=== PATIENT | male | born 1960 | race Caucasian/White ===

== ENCOUNTER 2024-12-05 12:11 | Outpatient (OUT) | payer MEDICAID, SELFPAY ==
--- NOTE | 2024-12-05 12:22 | XR_ITS ---
The [address] [address] Patient Name: RYLEE GOVEA MRN: [id number] date: 1960 Sex: M Assigned Patient Location: [facility] Current Patient Location: [facility] Accession/Order Number: [id number] Exam Date: 12/05/2024 13:03 Report Date: 12/05/2024 13:03 At the request of: RADHA BRUNO Procedure: XR elbow RT min 3V RIGHT ELBOW - ray views CLINICAL HISTORY: Chronic right elbow pain. COMPARISON: None FINDINGS: Posterior soft tissue swelling. No elbow joint effusion. Elbow joint demonstrates degenerative change without acute bony process. XR/XR elbow RT min 3V IMPRESSION: MILD POSTERIOR SOFT TISSUE SWELLING WITH DEGENERATIVE CHANGES INVOLVING THE RIGHT ELBOW. NO ACUTE BONY PROCESS. Impression dictated by: Manoj Blas Jr., D.O. 12/05/2024 1:03 PM Dictation Location: [place] [address] Electronically authenticated by: [id number] Y Date: 12/05/2024 13:03
== END 2024-12-05 12:12 | disposition home or self-care (01) ==
PROVIDERS: Family Provider Family Medicine; PCP Nurse Practitioner Family; Visit Provider Nurse Practitioner Family
DX: M25.521 Pain in right elbow (principal); M19.021 Primary osteoarthritis, right elbow
CPT/HCPCS: 73080

== ENCOUNTER 2025-02-27 11:47 | Outpatient (OUT) | payer MEDICAID, SELFPAY ==
--- OUTSIDE RECORDS SUMMARY | 2025-02-27 07:39 | XMS_ITS | Continuity of Care Document ---
Author Organization [facility] Address [address] [place] [address] Phone Care Team Providers Care [employer] Information [employer] Supervisor Name Role Phone Emmanuelle Radha DANIELS Primary Care Provider Radha Bruno APRN Attending Provider [phone] Brayan Pennington DO Attending Provider [phone] Care Teams Patient Care Team Team Status: Active Member Role/Relationship Status Dates Radha Bruno APRN [employer]-C Primary Care Provider Active Visit Care Team Team Status: Inactive Member Role/Relationship Status Dates Radha Bruno APRN [employer]C Primary Care Provider Active Start: December 05, 2024 End: December 05, 2024Radha Bruno APRN [employer]-CAttending ProviderActive Start: December 05, 2024 End: December 05, 2024 Visit Care Team Team Status: Inactive Member Role/Relationship Status Dates Radha Bruno APRN [employer]C Primary Care Provider Active Start: December 12, 2024 End: December 12, 2024Radha Bruno APRN [employer] CAR[employer]ER-CAttenhanna ProviderActive Start: December 12, 2024 End: December 12, 2024 Patient Care Team Team Status: Inactive Member Role/Relationship Status Dates Radha Bruno APRN [employer]C Primary Care Provider Active Start: February End: February 27, 2025Justcase Pennington DOAttending ProviderActiveStart: February 27, 2025 End: February 27, 2025 Chief Complaint and Reason for Visit Chief Complaint Admit Date elbow concerns December 05, 2024 11: 19am 3 mo f/u December 12, 2024 2: 01pm [facility] CONSULT RADHA BRUNO RT ELBOW PAIN WX February 27, 2025 10:44am Reason for Visit Admit Date Right elbow pain December 05, 2024 11: 19am Anxiety December 12, 2024 2: 01pm Arthritis of right elbow December 12 2:01pm CVA (cerebral vascular accident) December 12, 2024 2:01pm Dysphagia December 12, 2024 2: 01pm GERD (gastroesophageal reflux disease) A ugust 2024 2:01pm History of aortic valve replacement Augu st 2024 2:01pm History of coronary artery bypass graft x 1 December 12, 2024 2:01pm Hyperlipidemia December 12, 2024 2: 01pm Hypertension December 12, 2024 2: 01pm Marijuana abuse December 12, 2024 2: 01pm Nicotine dependence December 12, 2024 2: 01pm Pre-op evaluation December 12, 2024 2: 01pm Right elbow pain December 12, 2024 2: 01pm Seasonal allergies December 12, 2024 2: 01pm Type 2 diabetes mellitus December 12 2:01pm 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 December 12, 2024 2:01pm Arthritis of right elbow February 27, 2 025 10:44am Right elbow pain February 27, 2025 1 0:44am Reason for Referral Type Reason(s) Provider Provider Contact Information [facility] Address Start Date Right elbow pain Arthritis of right elbow M25.521 - Pain in right elbow,M19.021 - Primary osteoarthritis, right elbow M25.521 - Pain in right elbow,M19.021 - Primary osteoarthritis, right elbowLeslye Huff Phone: [phone] [facility] [id number] 2024 Allergies, Adverse Reactions, Alerts Allergen Type Severity Reaction Last Updated Verified Status cephalexin Allergy Unknown Unknown Reaction February 27, 2025 11:10am Yes Active doxycycline Adverse Reaction Unknown Diarrhea February 27, 2025 11:10am Yes Active Social History Smoking Status Status Start Date End Date Date of Observa tion Smokes tobacco daily (finding) December 12, 2024 2:24pm Observation Status Observation Response Date of Response Legal Sex [facility] (finding) [facility] Family History Relationship Condition Age at Onset Recorded Date/T carlos mother Malignant neoplasm of ovary Unknown fatherDeceasedUnknownmotherDeceasedUnknown Problems Active Problems Problem Diagnosis/Recorded Date Onset Date Status C omments Nicotine dependence September 11, 2024 5:43pm Unknown Activ e 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May 2024 5:45pmUnknownActiveHistory of coronary artery bypass graft x 1May 2024 8:51amUnknownActiveMarijuana abuseApril 2021 5:44pmUnknownActiveType 2 diabetes mellitusMay 2024 5:45pmUnknownActiveAnxietyJune 2024 1:15pmUnknownActiveDysphagiaApril 2024 9:01amUnknownActiveSeasonal allergiesAugust 2024 2:49pmUnknown ActiveHyperlipidemiaMay 2024 5:43pmUnknownActivePre-op evaluationAugust 2024 3:04pmUnknownActiveChronic back painMay 2024 5:46pmUnknown ActiveRight elbow painAugust 2024 11:43amUnknownActiveEncounter for screening for lung cancerMa2024 5:43pmUnknownActiveHistory of aortic valve replacementMay 2024 5:44pmUnknownActiveGERD (gastroesophageal reflux disease)September 12, 2024 8:56amUnknownActiveHypertensionJuly 2021 1:45pm UnknownActiveCVA (cerebral vascular accident)November 25, 2021 1:44pmUnknownActive Arthritis of right elbowAugust 2024 2:56pmUnknownActiveInactive/Resolved Problems Problem Diagnosis/Recorded Date Onset Date Status C omments Stroke of right basal ganglia August 13, 2021 2:58pm Unknown Resolved Problem List clean-up per request of Phys. EHR Cmte Impaired mobility and activities of daily living August 13, 2021 9:54am Unknown Resolved Problem List clean-up per request of Phys. EHR Cmte Alcohol abuse August 12, 2021 5:43pm Unknown Resolved Problem List clean-up per request of Phys. EHR Cmte Chronic pain August 13, 2021 9:55am Unknown Resolved Problem List clean-up per request of Phys. EHR Cmte Dysphagia August 13, 2021 9:53am Unknown Resolved P roblem List clean-up per request of Phys. EHR Cmte Left-sided neglect August 13, 2021 9:54am Unknown Reso lved Problem List clean-up per request of Phys. EHR Cmte Aortic valve replaced August 12, 2021 5:42pm Unknown R esolved Problem List clean-up per request of Phys. EHR Cmte Anticoagulated on Coumadin August 13, 2021 9:54am Unknown Resolved Problem List clean-up per request of Phys. EHR Cmte Left hemiplegia August 13, 2021 9:56am Unknown Resolve d Problem List clean-up per request of Phys. EHR Cmte Hypertension August 13, 2021 9:54am Unknown Resolved Problem List clean-up per request of Phys. EHR Cmte Smoker August 12, 2021 5:43pm Unknown Resolved P roblem List clean-up per request of Phys. EHR Cmte Medications Medication Status Dose Units Route Directions Qty Days Refills S tart Date Stop Date End Date Reason(s) Instructions Adherence Bupropion Hcl (Wellbutrin Sr) 150 mg tablet sustained-release 12 hr Discontinued 150 MG PO Daily 90 90 1 October 11, 2024 12:00am December 12, 2024 2:33pmAnxiety Anxiety disorder, unspecifiedOndansetron 4 mg tablet,xxcmkjsxsqlqtjBiosds2HQTX Q8H as needed for nausea and agpwdabg13945Yapxsd 2024 12:00amComplies with drug therapyAtorvastatin 40 mg tjmmrqEgfieo37GURDRczcd rqexghm26335Atmobnabo 17th, 2025 1:18pmHyperlipidemia Hyperlipidemia, unspecifiedComplies with drug therapyTizanidine 4 mg tablet Lelwba9HFCYQopzumi41599Ihqmqntal 17th, 2025 1:19pmChronic back pain Dorsalgia, unspecified Other chronic painComplies with drug therapyBupropion Hcl (Wellbutrin Sr) 150 mg tablet sustained-release 12 ldNfqoobmhwoyk628YZJGPcwgx29227Cqflalrlb 2024 8:10amOctober 2024 1:31pmAnxiety Anxiety disorder, unspecifiedBupropion Hcl 150 mg tablet sustained-release 12 hr Active0.ROUTE.TGTFBUZ2971Rmfdsjh 2024 1:31pmAnxiety Anxiety disorder, unspecifiedTAKE 2 TABLETS BY MOUTH DAILYComplies with drug therapyAmlodipine 2.5 mg tabletDiscontinued2.5MGPODailyJuly 2021 12:00am December 12, 2024 2:50pmEscitalopram Oxalate 10 mg sjphbvYdjbercempdp79UEYWDugzg November 25, 2021 12:00amMay 2024 2:43pmEnoxaparin (Lovenox) 100 mg/mL LkxonmgWyjtndfosaxd224PMAYHBNUM38HKpon 2021 12:00amMay 2024 2:43pm Warfarin 7.5 mg RwlhvdFvstznpmkkiy0ZBRDJgl as DirectedApril 2021 12:00am August 16, 2021 10:16am7.5MG takes every Thursday, 5mg PO every other day (////Thu/Thu)Metoprolol Tartrate 100 mg HggcrrKpjfis227WZTGUilgc daily 85460Pqdea 2021 12:00amComplies with drug therapyTizanidine 4 mg Tablet Drhfswmuywkl3QOWKMmxyirf99239Cruoq 2021 12:00amSeptember 2024 1:19pm Lisinopril 20 mg HkfyvwZafxni38AFVNDcblr25276Iidpk 2021 12:00amComplies with drug therapyThiamine Hcl (Vitamin B1) 100 mg TloykiYsrjmrrlgfum850LMQEHkynl 25838Slblm 2021 12:00amJuly 2021 1:42pmWarfarin (Jantoven) 5 mg SiyeglSmkhyy5QLQBBrxdf91Lxepf 2021 12:00amComplies with drug therapy Omeprazole 20 mg Capsule,Delayed Release(Dr/Ec)Qvjgfoetdryf05RMXGIyqoe dvjws5435 0April 2021 12:00amJuly 2021 1:42pmAtorvastatin 40 mg Tablet Zvdyvpkehqml77KSUPZjokg bjjrgun49571Cucyg 2021 12:00amSeptember 2024 1:19pmHydrocodone-Acetaminophen 5-325 mg IuytbkZxmenretxmbt1ATJWJR8B as needed for Ptci25Efpue ugust 2024 2:23pmAspirin (Children's Aspirin) 81 mg Tablet,CzmqzuguTjvujl92MMWLQgckl25778Ejece 2021 12:00amComplies with drug therapyFolic Acid 1 mg HccmgjRinukrjxmibe5VVZWAaott49771Twmow 2021 12:00amJuly 2021 1:42pmBacitracin-Polymyxin B 500-10,000 unit/gram LilbedxaAgzjnriitevf0QXEAHLHYR-XTHEES9A as needed for Dry Eye(S)56270Yrgqe 2021 12:00amAugust 2024 2:22pmFexofenadine 180 mg tabletDiscontinuedMGPO December 05, 2024 12:00amAugust 2024 2:50pmGlimepiride 2 mg tablet DiscontinuedMGAugus2024 12:002024 3:07pmAmoxicillin-Pot Clavulanate 875-125 mg tabletDiscontinuedTABPOA2024 12:00ugust 2024 2:21pmBenzonatate 200 mg uubbbptOczxyjwstnjy221KDXLJjzmf times daily September 07, 2024 12:00amMay 2024 3:41pmBupropion Hcl 150 mg tablet sustained- release 12 dvOvcdzqwoqtpx020ZCZLKkpig dailySeptember 07, 2024 12:00amMa2024 3:24pmClopidogrel 75 mg sevpmwXxynac75PDGRBjvtqJxy 7th, 2025 12:00amComplies with drug therapyDapagliflozin Propanediol 10 mg dwanyeDdqsek59JAXKLlowaIrq 7th, 2025 12:00amComplies with drug therapyMetformin 500 mg obnzmrFybyaipvjzis128UDUX Twice dailySeptember 07, 2024 12:00amA2024 2:50pmNicotine 21 mg/24 hr patch 24 jvboEnlwdsqozcvy5MCECEGHQHZBIYIPSagniAyq 7th, 2025 12:002024 2:23pmPantoprazole 40 mg tablet,delayed release (DR/EC)Hctiup10XTYIAqvprIzu 7th, 2025 12:00amComplies with drug therapyUrea 40 % qihtvGwceijkuzfda4EIREDX TOPICALTwice dailySeptember 07, 2024 12:00amA2024 2:23pmBenzonatate 200 mg gchelpuQjaizy695MOOHCjlxc times yfkqe846357Lpm 7th, 2025 3:41pmDysphagia Dysphagia, unspecifiedUnknownOmadacycline (Nuzyra) 150 mg cunikfMxucip991QZRZ Twice dailyAuunm [facility] hospitalt 2024 12:00amComplies with drug therapyBupropion Hcl (Wellbutrin Sr) 150 mg tablet sustained-release 12 pvFisavsowdvar637LUIQMxpyn73 300Auunm [facility] hospitalt 2024 2:32pmSeptember 2024 8:10amAnxiety Anxiety disorder, unspecifiedFexofenadine 180 mg xouzjnFlhitf155YCWXAjocy20509 December 12, 2024 2:48pmSeasonal allergies Other seasonal allergic rhinitisComplies with drug therapyAmlodipine 2.5 mg tabletActive2.0DSSCEfwbp58781Itjmnx 2024 2:49pmHypertension Essential (primary) hypertensionComplies with drug therapyMetformin 500 mg ycynumPpmiyx4049SBSCWvomv edhvd188756Qzsvzx 2024 2:50pmType 2 diabetes mellitus Type 2 diabetes mellitus without complicationsComplies with drug therapy Vital Signs Vital Reading Result Reference Range Collection Date/Time Height 68 [in_i] December 05, 2024 11:52fpShrgla349.96 kgAugust 2024 11:28amHeart Rate58 /min 60-100August 2024 11:28amRespiratory rate16 /hbg88-08Zyakxd 2024 11:28amOxygen saturation by Pulse jfsaqppo05 %95-100August 2024 11:28amBP Smmhedls490 mm[Hg]100-140Augus2024 11:28amBP Xiyhxjxrl51 mm[Hg]60-100 December 05, 2024 11:28amBMI (Body Mass Index)34.4 kg/v8Dttmlk2024 11:28am Btllvq75 [in_i]December 12, 2024 2:10enXgtzhp377.32 kgAugus2024 2:18pm Body Wxtvdkvqnsh31.8 [degF]97.6-99.0Augus2024 2:18pmHeart Rate72 /min 60-100Au2024 2:18pmOxygen saturation by Pulse aedfcpoh68 %95-100 December 12, 2024 2:18pmBP Qfvxvuzq458 mm[Hg]100-140Augus2024 2:18pmBP Fhhutqplb76 mm[Hg]60-100August 2024 2:18pmBMI (Body Mass Index)34.9 kg/m2 December 12, 2024 2:96ilFlixcr62 [in_i]February 27, 2025 11:01prOpihnz483.32 kg February 27, 2025 11:10amBMI (Body Mass Index)34.9 kg/d2Beuuvwa2024 11:10am Advance Directives Advance Directive Response Recorded Date/ Time Advance Directives No August 12 022 1:03pm Insurance Providers Guarantor Jorge Ojeda Address [address] [place] [id number] Info.Home Phone: Coverage Status Update:2024 Payer Group Member ID Coverage Type Subscriber Relationship to Subscriber Effective Date Expiration Date [facility] Medicaid [id number] Barger , D Id: [id number] [address] [place] [id number] Home Phone: Email: .[employer] Unknown Id: [id number] Barger , D Id: [id number] [address] [place], [place] [address] Home Phone: Email: .comSelf Encounters Encounter Location(s) Arrival/Admit Date Discharge/Departure Date Discharge/Departure Disposition Provider(s) Departed Physician/ Provider Office Visit -[facility] December 05, 2024 11:19am December 05, 2024 11:55am Discharged to home care or self care (routine discharge) Radha Bruno APRN CNP Departed Physician/ Provider Office Visit -[facility] December 12, 2024 2:01pm December 12, 2024 3:02pm Discharged to home care or self care (routine discharge) Radha Bruno APRN CNP Departed Physician/ Provider Office Visit -[facility] [place] February 27, 2025 10:44am February 27, 2025 11:38am Discharged to home care or self care (routine discharge) Brayan Pennington , DO Recent Diagnosis Onset Date Admit Date Right elbow pain Unknown December 05 11:19am Anxiety Unknown December 12 2:01pm Arthritis of right elbow Unknown December 12, 2024 2:01pm CVA (cerebral vascular accident) Unknown December 12, 2024 2:01pm Dysphagia Unknown December 12 2:01pm GERD (gastroesophageal reflux disease) Unknown December 12, 2024 2:01pm History of aortic valve replacement Unknown December 12, 2024 2:01pm History of coronary artery bypass graft x 1 Unkn own December 12, 2024 2:01pm Hyperlipidemia Unknown December 12 2:01pm Hypertension Unknown December 12 2:01pm Marijuana abuse Unknown December 12 2:01pm Nicotine dependence Unknown December 12, 2024 2:01pm Pre-op evaluation Unknown December 12, 2 025 2:01pm Right elbow pain Unknown December 12 2:01pm Seasonal allergies Unknown December 12, 2024 2:01pm Type 2 diabetes mellitus Unknown December 12, 2024 2:01pm 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 Unknown December 12, 2024 2:01pm Arthritis of right elbow Unknown February 27, 2025 10:44am Right elbow pain Unknown October 27th, 2 025 10:44am Assessments Diagnosis Onset Date Resolution Status Admit Date Right elbow pain acuteAugust 2024 11:19amAnxietyacuteAugust 2024 2:01pmArthritis of right elbowacuteAugust 2024 2:01pmCVA (cerebral vascular accident)acute December 12, 2024 2:01pmDysphagiaacuteAugust 2024 2:01pmGERD (gastroesophageal reflux disease)acuteAugust 2024 2:01pmHistory of aortic valve replacementacuteAugust 2024 2:01pmHistory of coronary artery bypass graft x 1acuteAugust 2024 2:01pmHyperlipidemiaacuteAugust 2024 2:01pmHypertensionacuteAugust 2024 2:01pmMarijuana abuseacuteAugust 2024 2:01pmNicotine dependenceacuteAugust 2024 2:01pmPre-op evaluation acuteAugust 2024 2:01pmRight elbow painacuteAugust 2024 2:01pm Seasonal allergiesacuteAugust 2024 2:01pmType 2 diabetes mellitusacute December 12, 2024 2:01pm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acuteAugust 2024 2:01pmArthritis of right elbowacuteOctober 2024 10:44amRight elbow painacuteOctober 2024 10:44am Plan of Treatment [facility] 9:06amDiscussed symptoms with pt, will order x-ray to evaluate right elbow for arthritis, joint effusion. Discuss to continue ice, heat and tyelnol as needed. Will call with results and further recommendations. Pt and verbalizes understanding and agrees to plan of care. Author Denia Arredondo [facility] 20[facility] 11:38amPatient is not improving as expected with time and conservative treatment. An MRI will be necessary to assess for an injury that could require surgical treatment. Patient given MRI information sheet to be done at [place]. Patient is to follow up after MRI. Note scribed by JOSTIN Crawford, reviewed and amended by myself Brayan Pennington D.O. Author [facility] 20[facility] 8:28pm Advised patient to continue using Malou, allergy medication once daily. Symptoms are consistent with allergic rhinitis. No signs of bacterial infection on exam today. Educated patient that allergy symptoms are not always caused by pollen but can also be caused by dust, mold, and pet dander. Patient verbalized understanding and agreement with tx plan. To goal. Continue Lisinopril and Amlodipine Prior to your visit today we reviewed your chart and outlined the testing and treatment needed for your care. We discussed the possible complications of high blood pressure, including increased risk for heart disease, stroke, and kidney disease. Our goal is to keep your blood pressure below 130/85 (an preferably < 120/80) and maintain a healthy weight with a BMI less than 26. We are working together to achieve these goals with the following plan; healthier diet, increased activity and exercise, understanding your medications, and your compliance. You have been given relevant education handouts. A1c 7.2 Just above goal. Continue Metformin Stop glimepiride Started on Victoza per medication management at [facility] Prior to your visit today we reviewed your chart and outlined the testing and treatment needed for your care. We discussed possible complications of diabetes including risk of heart disease, stroke, and kidney disease. Your goal is to keep your HgA1C below 7 (preferably <6.5) and your blood pressure less than 130/85 (and preferably < 120/80) and maintaining a healthy weight with a BMI less than 26. We are working together to achieve these goals with the following plan; healthier diet, understanding your medications, and your compliance. Barriers to these goals have been discussed. You have been given educational handouts. Referral placed to ortho Referral placed to ortho. Following with Dr. Hammond -- podiatry in [place]. He is scheduled for amputation of right fifth toe Thursday12/16/2024 Stable Continue to Atorvastatin Notes that has has not deficients besides the dysphagia -- Denies any stroke like symptoms. Continues to follow with Neurology through [facility] Continue Plavix Uses benzoate to help with secretions . Continue on pantoprazole Reflux symptoms remain unchanged. Discussed the importance of meal content. They should avoid overeating and eating meals late in the evening. Take medication as directed and we will continue to monitor. Follows with the Coumadin clinic at [facility] for management Follows with Cardiology- Reviewed most recent note. We discussed possible complications of smoking including risk of heart disease, stroke, lung disease, and increase risk of cancer. Your goal is to quit smoking. The availability, risks, and benefits of medication used to treat nicotine addiction as relevant to you have been discussed. We are working together to achieve these goals with the following plan; barriers to these goals have been discussed. You have been given relevant education handouts and a summary of your care plan. Your next follow-up visit for this problem is six months, we will continue to ask progress for quitting and willingness to quit at each appointment. Patient presents for preop evaluation and surgical clearance for upcoming right foot surgery.patient recently completed presurgical testing including lab work, EKG. All of this looks unremarkable for the most part. He does have Type 2 diabetes, hypertension, high cholesterol, history of CVA, depression, anxiety, GERD, and history of aortic valve replacement. He is on Coumadin and states that cardiology placed him on Lovenox. He is an every day smoker. Denies chest pain, SOB, lightheadedness or palpitations. All of his chronic conditions seem to be for the most part stable and well controlled. He is a moderately high risk surgical candidate however since his complex, chronic condition are well controlled he seems to be of appropriate risk for surgery to his right foot. No known contraindications to proceed with procedure. Patient is not suicidal or homicidal at this time. Discussed treatment options with patient today. It was decided in collaboration with the patient to increase Wellbutrin daily for management with depression/anxiety. Medication profile and possible SE reviewed with patient today. Patient to take medication as directed and prescribed. Do not skip/miss doses and do not stop abruptly. Patient is not interested in counseling at this time. Warning s/s reviewed with patient today. Patient to go immediately to the ER should patient experience any of these. Follow up in 4 weeks to assess symptoms and medication effectiveness. Patient verbalizes understanding and agrees to treatment plan. Future Tests Future scheduled test information is unavailable Pending Tests Test Name Ordered Date Scheduled Date XR elbow RT min 3V* December 05, 2024 11:41am MR elbow RT wo conOctober 2024 11:38am Future Visits Future appointment information is unavailable Future Procedures Future procedure information is unavailable Future Medications Future medication information is unavailable Patient Instructions Patient instructions are unavailable Hospital Discharge Instructions Ambulatory Orders* MR elbow RT wo con Time Frame: 02/27/25, Location: Determined By Patient
--- OUTSIDE RECORDS SUMMARY | 2025-02-27 11:52 | XMS_ITS | Clinical Summary ---
Author Organization [facility] Address [address] [place] [id number] Care Team Providers Care Manager Commercial Name Role Phone Unavailable Primary Care Provider Unavailabl e Medications MedicationSigDispense QuantityRefillsLast FilledStart DateEnd DateStatus mirtazapine orally disintegrating (REMERON SOLTAB) 30 mg disintegrating tablet Take 30 mg by mouth.01/08/2024ctive HYDROcodone-acetaminophen (NORCO) 5-325 mg per tablet Take 1 tablet by mouth every 6 hours as needed.08/16/2021ctive tiZANidine (ZANAFLEX) 4 mg tablet Take 4 mg by mouth.01/08/2024ctive clopidogrel (PLAVIX) 75 mg tablet Take 75 mg by mouth.05/13/2023ctive atorvastatin (LIPITOR) 40 mg tablet Take 40 mg by mouth.08/16/2021ctive metoprolol tartrate, short acting, (LOPRESSOR) 100 mg tablet TAKE ONE TABLET BY MOUTH EVERY MORNING AND BEFORE ZNGFQSR4408/16/2021ctive pantoprazole DR (PROTONIX) 40 mg tablet Take 40 mg by mouth.12/18/2023ctive clindamycin (CLEOCIN) 300 mg capsule TAKE 1 CAPSULE BY MOUTH THREE TIMES DAILY (IN THE MORNING, IN THE EVENING and BEFORE bedtime)12/15/2023ctive amLODIPine (NORVASC) 5 mg tablet Take 1 tablet by mouth every morning.05/20/2023ctive trifluridine (VIROPTIC) 1 % ophthalmic solution Instill 1 drop into left eye six times a day FOR 7 DAYS07/31/2023ctive metFORMIN ER (GLUCOPHAGE XR) 500 mg 24 hr tablet Take 1,000 mg by mouth.08/05/2023ctive warfarin (COUMADIN) 5 mg tablet Take 5-7.5 mg by mouth.11/25/2023ctive albuterol HFA (PROVENTIL HFA, VENTOLIN HFA) 90 mcg/actuation inhaler Inhale 2 Puffs as instructed every 6 hours as needed.07/10/2023ctive amoxicillin (AMOXIL) 500 mg capsule TAKE 4 CAPSULES BY MOUTH ONE HOUR PRIOR TO DENTAL APPOINTMENT.12/31/2023ctive DEXCOM G7 SENSOR vladimir APPLY TO SKIN EVERY TEN DAYS FOR CONTINUOUS BLOOD SUGAR CGLWJRORTO82/20/2024 Active docusate sodium (COLACE) 100 mg capsule Take 100 mg by mouth.Active TRULICITY 4.5 mg/0.5 mL pen injector Inject 4.5 mg subcutaneously one time a week.11/23/2023ctive fexofenadine (LACHO) 180 mg tablet Take 180 mg by mouth.Active hydrOXYzine HCl (ATARAX) 25 mg tablet Take 25 mg by mouth.08/07/2023ctive LANTUS SOLOSTAR U-100 INSULIN 100 unit/mL (3 mL) Inject subcutaneously.Active oxymetazoline (GENASAL) 0.05 % nasal spray Use 2 Sprays in the nose.07/27/2023ctive gabapentin (NEURONTIN) 300 mg capsule Indications:Burning sensation,TinglingTake 1 capsule by mouth three times a day for 180 days. 90 capsule ctive DULoxetine (CYMBALTA) 30 mg capsule Indications:Burning sensationTake 2 capsules by mouth once daily. Start by taking 1 capsule by mouth once daily for 2 weeks. After 2 weeks, if tolerated, and still symptomatic, increase to 2 capsules by mouth once daily. 180 capsule ctive Social History Tobacco UseTypesPacks/DayYears UsedDateSmoking Tobacco: Every VlkXwzmdfiwez831.8 Started: 05/04/1973Smokeless Tobacco: Never Tobacco Cessation:Ready to Q uit: Not Asked; Counseling Given: Not Answered Alcohol UseStandard Drinks/WeekCommentsNot Currently0 (1 standard drink = 0.6 oz pure alcohol)rarelyArea Deprivation IndexAnswerDate RecordedNational Score (1- 100), lower number is lower bntf081601/18/2024State Score (1-10), lower number is lower hvaq225/16/2024Data from: https://www.neighborhoodatlas.[facility].edu/. Last address used for [address] Sex and Gender InformationValueDate RecordedSex Assigned at HidhjItci90/15/2024 12:42 PM EDTLegal RqnVkpt1510/29/2023 2:59 PM EDTGender VlejrsqyIgwd12/15/2024 12:42 PM EDTSexual OrientationStraight 12/17/2023 12:42 PM EDT Last Filed Vital Signs Vital SignReadingTime TakenCommentsBlood Wadwcxmw628/70001/18/2024 3:09 PM EDT Psuuu071501/18/2024 3:09 PM ENXEmfralylsdd57.9 ??C (98.4 ??F)01/18/2024 3:09 PM EDTRespiratory Rate--Oxygen Uyqeqkgtwg17%01/18/2024 3:09 PM EDTInhaled Oxygen Concentration--Rmcnrh973.2 kg (231 lb 14.8 oz)01/18/2024 3:09 PM NWJYgadhw122.7 cm (5' 8 )01/18/2024 3:09 PM EDTBody Mass Index35.26001/18/2024 3:09 PM EDT Plan of Treatment Health MaintenanceDue DateLast DoneCommentsAnxiety Jxdntwavx32/15/1980Depression Ogqptkbwi37/15/1980HIV Ggstdclss37/15/1980Hepatitis C Cthocdomj46/15/1980 DTaP,Tdap,Td Vaccine (1 - Tdap)1980Pneumococcal Vaccine: 50+ (1 of 2 - PCV)1980CT Ipyyvtvwqcax84/15/5659Jeimbxgitsz36/15/2007Prostate Cancer Screening Aoemeydwce95/15/2192Dhynheafbilbm00/15/2007Shingrix Vaccine (1 of 2) 2011RSV Vaccine (1 - Risk 60-74 years 1-dose series)2Cologuard (FIT-DNA)/09/2018Colorectal Cancer Opdopncqv94/31/2023Fecal Occult Blood2Covid-19 Vaccine ( season)2025 05/08/2021, 10/23/2020, 10/02/2020Influenza Vaccine (#1)2025Diabetes Seksbnarp70/02/97107005/05/2023, 01/27/2024, 10/22/2023, Additional history exists Lipid Ljjheayxt92, 12/28/2023, 07/13/2023, Additional history exists Insurance [address] [place] [address]
--- OUTSIDE RECORDS SUMMARY | 2025-02-27 11:52 | XMS_ITS | Clinical Summary ---
Author Organization [facility] Address [address] [place] [address] Care Team Providers Care Supervisor Hot Dip Tinning Name Role Phone Jose Garner DO Primary Care Provider [phone] Allergies Active AllergyReactionsCriticalityNoted DateCommentsCephalexinHivesHigh 02/16/2019ClindamycinGI mzboozcergi36/03/4563UtulavqqjysFnmyjdcn90/25/2022 Medications MedicationSigDispense QuantityRefillsLast FilledStart DateEnd DateStatus amLODIPine (Norvasc) 5 MG tablet Take 5 mg by mouth DailyActive fexofenadine (Malou) 180 MG tablet Take 180 mg by mouth DailyActive metoprolol tartrate (Lopressor) 100 MG tablet Take 100 mg by mouth in the morning and 100 mg before bedtime.Active warfarin (Coumadin) 5 MG tablet Take by mouth Take as directed per After Visit Summary.Active albuterol HFA 90 mcg/act inhaler Inhale 2 puffs every 6 (six) hours if needed for adovifdg54/08/2024ctive clopidogrel (Plavix) 75 MG tablet Take 75 mg by mouth Daily05/13/2023ctive Continuous Blood Gluc Motion Picture Narrator (Dexcom G7 Motion Picture Narrator) device 07/31/2023ctive Continuous Blood Gluc Sensor (Dexcom G7 Sensor) misc 07/29/2023ctive Docusate Sodium (DSS) 100 MG capsule Take 100 mg by mouth in the morning and 100 mg in the evening.Active hydrOXYzine HCl (Atarax) 25 MG tablet Take 25 mg by mouth in the morning.08/07/2023ctive metFORMIN (Glucophage) 500 MG tablet Take 250 mg by mouthActive Wound Dressings ([facility] wound/burn) gel Indications:Ulcer of right foot with fat layer exposed (HCC)Apply 1 application topically Daily 44 mL ctive Liraglutide (VICTOZA SC) Inject under the skinActive Active Problems ProblemNoted DateDiagnosed GmuhLazaevkkvsebfc75/02/2024Ischemic dymyjy2909/03/2023 Essential rrmmkzapgzis80/02/2024lcohol abuse09/03/2023Unspecified atrial fiwxsrqberhx39/02/2024aytime fssnddjmextoaif12/02/2024OSA (obstructive sleep apnea)09/03/2023 Encounters DateTypeDepartmentCare WyqqJnrjspcrztr70/09/2025 5:40 PM EDTAncillary Procedure [facility] [address] [place] [address] 02/09/2025 4:00 PM EDTOffice Visit [facility] [address] [place] [address] Afsaneh Hammond, DPM Ulcer of left foot with fat layer exposed (HCC) (Primary Dx); Status post amputation of lesser toe of right foot ([facility]); Type II or unspecified type diabetes mellitus with neurological manifestations, not stated as uncontrolled(250.60) (HCC)02/09/2025amboo flowsheet [facility] [address] [place] [address] Afsaneh Hammond, DPM 02/09/20257681Gpoxup68/08/7141Dxiamr97/25/2025 3:45 PM EDTOffice Visit [facility] [address] [place] [address] Afsaneh Hammond, DPFransisco Status post amputation of lesser toe of right foot ([facility]) (Primary Dx); Type II or unspecified type diabetes mellitus with neurological manifestations, not stated as uncontrolled(250.60) ([facility]); Ulcer of left foot with fat layer exposed (HCC); Oiaudjrgkbpqr69/25/7252Udqafz69/11/2025 3:45 PM EDTOffice Visit [facility] [address] [place] [address] Afsaneh Hammond, DPM Dehiscence of amputation stump of right lower extremity (HCC) (Primary Dx); Status post amputation of lesser toe of right foot ([facility]); Type II or unspecified type diabetes mellitus with neurological manifestations, not stated as uncontrolled(250.60) (HCC)01/12/2025[facility] flowsheet [facility] [address] [place] [address] Afsaneh Hammond, DPM 01/12/20257390Kypryv45/10/1573Nthwds92/04/2025 4:00 PM EDTOffice Visit [facility] [address] [place] [address] Afsaneh Hammond, DPM Status post amputation of lesser toe of right foot ([facility]) (Primary Dx); Dehiscence of amputation stump of right lower extremity (HCC); Type II or unspecified type diabetes mellitus with neurological manifestations, not stated as uncontrolled(250.60) ([facility]); Ulcer of left foot with fat layer exposed ([facility])01/05/2025[facility] flowsheet [facility] [address] [place] [address] Afsaneh Hammond, DPM 01/05/20256925Xmzwap02/03/0838Goegaj80/02/1988Yltxcc51/28/2025 9:00 AM EDTOffice Visit [facility] [address] [place] [address] Afsaneh Hammond, DPM Cellulitis of right foot (Primary Dx); Amputation of fifth toe of right foot; Dehiscence of amputation stump of right lower extremity (HCC); 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); Infection of skin12/29/2024[facility] flowsheet [facility] [address] [place] [address] Afsaneh Hammond, DPM 12/29/20242873Wiikrs76/27/8455Ixicwu96/21/2025 5:20 PM EDTAncillary Procedure [facility] [address] [place] [address] 12/22/2024 4:00 PM EDTOffice Visit [facility] [address] [place] [address] Afsaneh Hammond, DPM Other acute osteomyelitis of right foot (HCC) (Primary Dx); 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); Type II or unspecified type diabetes mellitus with neurological manifestations, not stated as uncontrolled(250.60) (HCC); Ulcer of left foot with fat layer exposed (HCC); Status post amputation of lesser toe of right foot ([facility])12/22/2024amboo flowsheet [facility] [address] [place] [address] Afsaneh Hammond, DPM 12/22/20242818Ivokfj51/20/1938Bumckq36/08/2025Telephone [facility] [address] [place] [address] Afsaneh Hammond, DPM 12/07/2024Telephone [facility] [address] [place] [address] Afsaneh Hammond, DPFransisco Advice Only (Driving After Surgery)12/06/2024 3:15 PM EDTOffice Visit [facility] [address] [place] [address] Afsaneh Hammond, DPM Other acute osteomyelitis of right foot (HCC) (Primary Dx); 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); Cellulitis of right foot; Infection of skin12/06/2024amboo flowsheet [facility] [address] [place] [address] Afsaneh Hammond DPM 12/06/20240557Qyxovk79/04/2025Travelfrom Last 3 Months Immunizations ImmunizationAdministration DatesNext DuePfizer Purple Cap SARS-CoV-2 Vaccination 05/08/2021,10/23/2020,10/02/2020 Family History Medical HistoryRelationNameCommentsAccidental deathFatherDonald bagerCancer MotherBARBAR BARGERAccidental deathSisterKimberly BargerRelationNameStatus CommentsFatherDonald bagerMotherBARBAR BARGERSisterKimberly Thai Social History Tobacco UseTypesPacks/DayYears UsedDateSmoking Tobacco: Every DayCigarettes0.515 Smokeless Tobacco: Never Tobacco Cessation:Ready to Q uit: Not Asked; Counseling Given: Not Answered Comments:Smoked 1-2 pks a day for [address]yrs have [address] back 1/2 pk orless a day Alcohol UseStandard Drinks/WeekCommentsNot Currently6 (1 standard drink = 0.6 oz pure alcohol)Sex and Gender InformationValueDate RecordedSex Assigned at Not on fileLegal IawWngk7412/30/2022 2:14 PM EDTGender IdentityNot on fileSexual OrientationNot on file Last Filed Vital Signs Vital SignReadingTime TakenCommentsBlood Hiausweh801/8309/03/2023 3:05 PM EDT Ljdfx385009/03/2023 3:05 PM JFYHavxowufuhr84.6 ??C (97.8 ??F)01/05/2025 4:04 PM EDTRespiratory Rate--Oxygen Saturation--Inhaled Oxygen Concentration--Tfmgfl073 kg (235 lb)02/09/2025 3:52 PM RNEGxxhee557.7 cm (5' 8 )02/09/2025 3:52 PM EDT Body Mass Index35.7302/09/2025 3:52 PM EDT Plan of Treatment DateTypeDepartmentCare Team (Latest Contact Info)Pfdjljvnvaw27/28/2025 3:45 PM EDTOffice Visit [facility] [address] [place] [address] Afsaneh Hammond, DPM [address] [place] [address] 03/09/2025 4:00 PM ESTOffice Visit [facility] [address] [place] [address] Afsaneh Hammond, DPM [address] [place] [address] 05/30/2025 4:00 PM ESTProcedure Visit [facility] [address] [place] [address] Afsaneh Hammond, DP [address] [place] [address] Procedures Procedure NamePriorityDate/TimeAssociated DiagnosisCommentsXR FOOT 3+ VIEWS LEFT Xhjazph4402/09/2025 5:38 PM EDT Ulcer of left foot with fat layer exposed (HCC) XR FOOT 3+ VIEWS QEDWUHdhpqfj08/21/2025 5:18 PM EDT Status post amputation of lesser toe of right foot ([facility]) BONE CULTURE ([facility])Bwewggf0412/16/2024 9:06 AM EDT CULTURE, ANAEROBIC BACTERIA W/GRAM HCPFXBtrkoif41/15/2025 9:06 AM EDT MR FOOT RIGHT W AND WO IV JCVLSFDR55/04/2025 1:28 PM EDT from Last 3 Months Results * XR foot 3+ views left (02/09/2025 5:38 PM EDT)Anatomical RegionLaterality ModalityLower Extremities, FootLeftRadiographic ImagingSpecimen (Source) Anatomical Location / LateralityCollection Method / VolumeCollection Time Received Time Narrative 02/09/2025 5:46 PM EDT Imaging Result: 3 views foot: AP, MO, and lateral of the left foot were taken and ?? compared with the same views taken of the left foot on 11/08/2024. ??There is no acute osseous abnormality, specifically no cortical disruption noted of the 5th ray /5th metatarsal head. ??There is mild degenerative changes noted of the 1st MTPJ and talonavicular joint. ??Hypertrophic fibular sesamoid present. Rectus foot structure Authorizing ProviderResult TypeResult StatusJejohnathon Hammond DPMIMG XR PROCEDURESFinal Result * XR foot 3+ views right (12/22/2024 5:18 PM EDT)Anatomical RegionLaterality ModalityLower Extremities, FootRightRadiographic ImagingSpecimen (Source) Anatomical Location / LateralityCollection Method / VolumeCollection Time Received Time Narrative 12/22/2024 5:20 PM EDT Imaging Result: 3 ??nonweightbearing views foot: AP, MO, and lateral of the right foot were taken and show ??amputation partial 5th ray. ??The ??proximal 3rd of the 5th metatarsal remains intact. Authorizing ProviderResult TypeResult StatusAfsaneh Hammond DPMIMG XR PROCEDURESFinal Result * (ABNORMAL) BONE CULTURE ([facility]) (12/16/2024 9:06 AM EDT)ComponentValueRef RangeTest MethodAnalysis TimePerformed AtPathologist SignatureUrine CultureSEE RESULTS BELOW(A)[facility]ICAComment: SPECIMEN SOURCE ?Bone ? Toe, Right CULTURE RESULTS ?ORGANISM 1: ENTEROCOCCUS FAECALIS ?Enterococcus faecalis ? ORGANISM 2: METHICILLIN-RESISTANT STAPHYLOCOCCUS ? AUREUS ?Methicillin-Resistant Staphylococcus aureus ? ORGANISM 3: DIPHTHEROIDS ?Diphtheroids ?Unable To Isolate REPORT STATUS ?FINAL 12/20/2024 ENTEROCOCCUS FAECALIS ? Interpretation Ampicillin <=2.0 S Vancomycin ? 1.0 ? S Susceptibility Comment ? METHICILLIN-RESISTANT STAPHYLOCOInterpretation Clindamycin >=4.0 R Daptomycin ? 0.25 ?S Doxycycline ?1.0 ? S Oxacillin >=4.0 R Trimethoprim + Sulfamethoxazole<=0.5 S Vancomycin <=0.5 S Cefazolin ?Resistant(Deduced) Susceptibility Comment ? Pre-op diagnosis: Acute osteomyelitis of right ankle or foot ([facility]) [M86.171] Ulcer of toe of right foot, with necrosis of bone ([facility]) [L97.514] ?? PERFORMED AT [address],[place] [address] Specimen (Source)Anatomical Location / LateralityCollection Method / Volume Collection TimeReceived Time12/16/2024 9:06 AM EDT12/16/2024 12:36 PM EDT Narrative Authorizing ProviderResult TypeResult StatusJesscatarino Hammond DPMLAB BLOOD ORDERABLESFinal ResultPerforming OrganizationAddressCity/State/ZIP CodePhone Number [facility] * Anaerobic culture (12/16/2024 9:06 AM EDT)ComponentValueRef RangeTest Method Analysis TimePerformed AtPathologist SignatureUrine CultureSEE RESULTS BELOW PROMEDICAComment: SPECIMEN SOURCE ?Bone ? Toe, Right CULTURE RESULTS ?NO ANAEROBIC ORGANISMS ISOLATED REPORT STATUS ?FINAL 12/21/2024 Pre-op diagnosis: Acute osteomyelitis of right ankle or foot ([facility]) [M86.171] Ulcer of toe of right foot, with necrosis of bone ([facility]) [L97.514] ?? PERFORMED AT [facility] [address],[place] [address] Specimen (Source)Anatomical Location / LateralityCollection Method / Volume Collection TimeReceived Time12/16/2024 9:06 AM EDT12/16/2024 12:36 PM EDT Narrative Authorizing ProviderResult TypeResult StatusJejohnathon Hammond DPMLAB MICROBIOLOGY - GENERAL ORDERABLESFinal ResultPerforming OrganizationAddressCity/State/ZIP CodePhone Number [facility] * MR foot right w and wo IV contrast (12/05/2024 1:28 PM EDT)Anatomical Region LateralityModalityLower Extremities, FootRightMagnetic ResonanceSpecimen (Source)Anatomical Location / LateralityCollection Method / VolumeCollection TimeReceived Time12/05/2024 1:28 PM EDT Narrative 12/05/2024 1:27 PM EDT THIS EXAM WAS PERFORMED AT [facility] MRI right foot with and without contrast HISTORY: Foot pain, infection. COMPARISON: MRI 07/17/2023 TECHNIQUE: Multiplanar, multisequence MR imaging was performed with and without contrast according to with and without contrast]. 20 mL Prohance administered intravenously without complication. FINDINGS: Dislocation fifth MTP with dorsal displacement proximal phalanx pinky toe. Fragmentation present compatible with nondisplaced fracture. Bone marrow edema of the fifth MTP compatible osteomyelitis. Joint fluid noted as well suggesting septic arthritis. No separate discrete drainable abscess. Otherwise there is ill-defined dorsal midfoot edema. Intact Lisfranc ligament complex. Fatty atrophy and infiltration musculature with muscular edema. Arthritis worst first MTP moderate severity. IMPRESSION: 1. Findings of osteomyelitis and septic arthritis of the fifth MTP joint with superimposed fracture. No separate drainable abscess. Finalized by Sree Rico MD on 12/05/2024 1:27 PM Procedure Note Radiology, Radiologist, - 12/05/2024 THIS EXAM WAS PERFORMED AT [facility] MRI right foot with and without contrast HISTORY: Foot pain, infection. COMPARISON: MRI 07/17/2023 TECHNIQUE: Multiplanar, multisequence MR imaging was performed with andwithout contrast according to with and without contrast]. 20 mL Prohanceadministered intravenously without complication. FINDINGS: Dislocation fifth MTP with dorsal displacement proximal phalanx pinky toe. Fragmentation present compatible with nondisplaced fracture. Bone marrowedema of the fifth MTP compatible osteomyelitis. Joint fluid noted as wellsuggesting septic arthritis. No separate discrete drainable abscess. Otherwise there is ill-defined dorsal midfoot edema. Intact Lisfranc ligament complex. Fatty atrophy and infiltration musculature with muscular edema. Arthritisworst first MTP moderate severity. IMPRESSION: 1. Findings of osteomyelitis and septic arthritis of the fifth MTP jointwith superimposed fracture. No separate drainable abscess. Finalized by Sree Rico MD on 12/05/2024 1:27 PM Authorizing ProviderResult TypeResult StatusJejohnathon Hammond DPMIMG MRI PROCEDURESFinal Result from Last 3 Months Insurance Care Teams Team MemberRelationshipSpecialtyStart DateEnd Date Jose Garner DO [address] [place] [address] PCP - GeneralInternal Medicine09/22/24
--- OUTSIDE RECORDS SUMMARY | 2025-02-27 11:52 | XMS_ITS | Clinical Summary ---
Author Organization [facility] Address [address] [place] [address] Care Team Providers Care Facility Operations Manager Name Role Phone Unavailable Primary Care Provider Unavailabl e Medications MedicationSigDispense QuantityRefillsLast FilledStart DateEnd DateStatus albuterol 90 mcg/actuation inhaler Inhale 2 puffs every 6 (six) hours if needed.07/10/2023ctive amLODIPine (Norvasc) 5 mg tablet Take 5 mg by mouth in the morning.05/20/2023ctive atorvastatin (Lipitor) 40 mg tablet Take 40 mg by mouth in the morning.08/16/2021ctive blood sugar diagnostic (Blood Glucose Test) strip To be used with glucometer to check blood glucose at least twice daily- once in the morning and once before bed07/27/2023ctive Dexcom G4 akhiok sales professional (Dexcom G7 Car Dumper Operator) misc Use to test glucose throughout the day07/29/2023ctive blood-glucose sensor (Dexcom G7 Sensor) device Use to check glucose throughout the day. Change every 10 days07/29/2023ctive clopidogrel (Plavix) 75 mg tablet Take 75 mg by mouth in the morning.05/13/2023ctive docusate sodium (Colace) 100 mg capsule Take 100 mg by mouth twice a day.Active dulaglutide (Trulicity) 0.75 mg/0.5 mL pen injector Inject 0.75 mg under the skin once a week.08/05/2023ctive DULoxetine (Cymbalta) [address] capsule Take 30 mg by mouth in the morning.06/11/2023ctive fexofenadine (Malou) 180 mg tablet Take 180 mg by mouth in the morning.Active heparin flush,porcine,-0.9NaCl 100 unit/mL kit Infuse 100-500 Units into a venous catheter if needed each day.07/24/2023ctive HYDROcodone-acetaminophen (Ong) 5-325 mg tablet Take 1 tablet by mouth every 6 (six) hours if needed.08/16/2021ctive hydrOXYzine HCL (Atarax) 25 mg tablet Take 25 mg by mouth in the morning.08/07/2023ctive insulin glargine (Lantus Solostar U-100 Insulin) 100 unit/mL (3 mL) injection pen Inject 15 Units under the skin in the morning.Active lancets misc To be used with glucometer to check blood glucose at least twice daily- once in the morning and once before djealqk2407/27/2023ctive metFORMIN XR (Glucophage-XR) 500 mg 24 hr tablet Take 500 mg by mouth twice a day.08/05/2023ctive metoprolol tartrate (Lopressor) 100 mg tablet Take 1 tablet by mouth in the morning and at bedtime.08/16/2021ctive oxymetazoline (Afrin) 0.05 % nasal spray Administer 2 sprays into affected nostril(s) if needed in the morning and at bedtime.07/27/2023ctive pen needle, diabetic 32 gauge x 3/16 needle 1 Needle twice a day.07/27/2023ctive sodium chloride flush Infuse 10-20 mL into a venous catheter if needed each day.07/24/2023ctive sodium chloride-Aloe vera gel ([place] Saline) gel topical gel Apply 1 Application to affected nostril(s) if needed each day.07/27/2023ctive trifluridine (Viroptic) 1 % ophthalmic solution 07/31/2023ctive warfarin (Coumadin) 7.5 mg tablet Take 1-1.5 tablets by mouth in the evening. Take 1-1.5 tablets (5-7.5 mg total) by mouth in the evening. Or as directed by Consuelo CHRISTOPHER.07/27/2023 Active Problems ProblemNoted DateDiagnosed DateDiabetic ulcer of right midfoot associated with type 2 diabetes mellitus, with fat layer /01/2024MSSA intbkdlfgh64/20/ellulitis of right foot Svwhshhjvgnz56Hypoxialcohol abuse MS (altered mental status)Hypertension Left twsbsrxctz17Sepsis07/16/2023 08/11/2023Type II diabetes mellitus with neurological lpjlikstczedrv32/23/2024 08/11/2023therosclerosis of [place] artery of fokrrrpxu14 Tobacco useUlcer of right foot with necrosis of muscle Social History Tobacco UseTypesPacks/DayYears UsedDateSmoking Tobacco: Never AssessedUT Safety & EnvironmentAnswerDate RecordedFear of Current or Ex-PartnerNot on file 07/20/2023Emotionally AbusedNot on file07/20/2023hysically AbusedNot on file 07/20/2023Sexually AbusedNot on file07/20/2023hysically or Sexually AbusedNot on file07/20/2023Sex and Gender InformationValueDate RecordedSex Assigned at BirthNot on fileLegal MuqFmyv8607/20/2023 12:01 AM EDTGender IdentityNot on file Sexual OrientationNot on file Plan of Treatment Health MaintenanceDue DateLast DoneCommentsCT Vdjbneglcwip63/15/1962Colonoscopy 2Colorectal Cancer Hmmciamne82/15/1962Diabetes: Hemoglobin A1C 1961FIT-[id number] 8389Cpozvvgtokmcl95/15/1962 Diabetes: Retinopathy Pgkpuqlsq07/15/1972Depression Txrgwxazs05/15/1974Diabetes: Urine Protein Dvcacvgte83/15/1981Pneumococcal Vaccine: Pediatrics (0 to 5 Years) and At-Risk Patients (6 to 64 Years) (1 of 2 - PCV)01/15/1981Adult Tetanus 1983Zoster Vaccines (1 of 2)2011COVID-19 Vaccine ( season)501/09/2021, 10/23/2020, 10/02/2020Influenza Vaccine (#1) 2025HIB VaccinesAged OutNo longer eligible based on patient's age to complete this topicHPV VaccinesAged OutNo longer eligible based on patient's age to complete this topicIPV VaccinesAged OutNo longer eligible based on patient's age to complete this topicMeningococcal B VaccineAged OutNo longer eligible based on patient's age to complete this topicMeningococcal VaccineAged OutNo longer eligible based on patient's age to complete this topicRotavirus Vaccines Aged OutNo longer eligible based on patient's age to complete this topic Insurance
--- OUTSIDE RECORDS SUMMARY | 2025-02-27 11:52 | XMS_ITS | Clinical Summary ---
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 18 g ctive blood-glucose meter,continuous (DEXCOM G7 SHOE STAMPER) [facility] Indications:Diabetes mellitus without complication ([facility])Use to test glucose throughout the day 1 each 07/29/2023ctive buPROPion SR (WELLBUTRIN SR) 150 mg 12 hr tablet TAKE 1 TABLET BY MOUTH TWICE DAILY (IN THE MORNING and BEFORE bedtime) 180 tablet ctive blood-glucose sensor (DEXCOM G7 SENSOR) device Indications:Diabetes mellitus without complication ([facility])Use to check glucose throughout the day. Change every 10 days 3 each ctive pantoprazole (PROTONIX) 40 mg EC tablet TAKE 1 TABLET BY MOUTH IN THE MORNING 30 tablet ctive amLODIPine (NORVASC) 5 mg tablet Indications:Primary hypertensionTAKE 1 TABLET BY MOUTH IN THE MORNING 30 tablet 512/30/2024Active atorvastatin (LIPITOR) 40 mg tablet TAKE 1 TABLET BY MOUTH NIGHTLY 30 tablet 512/4Active fexofenadine (LACHO) 180 mg tablet Take 1 tablet (180 mg total) by mouth in the morning. 30 tablet 5025Active tiZANidine (ZANAFLEX) 4 mg tablet Take 1 tablet (4 mg total) by mouth 3 (three) times a day. 90 tablet 1025Active benzonatate (TESSALON PERLES) 200 mg capsule Take 1 capsule (200 mg total) by mouth 3 (three) times a day as needed for cough. 30 capsule 1035Active dapagliflozin propanediol (FARXIGA) 10 mg tablet Indications:Diabetes mellitus without complication (CMS-HCC)Take 1 tablet (10 mg total) by mouth in the morning. 30 tablet 1105Active clopidogreL (PLAVIX) 75 mg tablet Take 1 tablet (75 mg total) by mouth in the morning. 90 tablet 5Active lisinopriL (PRINIVIL,ZESTRIL) 10 mg tablet Indications:Primary hypertensionTake 1 tablet (10 mg total) by mouth in the morning. 90 tablet 5Active liraglutide (VICTOZA 3-DIANDRA) 0.6 mg/0.1 mL (18 mg/3 mL) pen injector Indications:Type II diabetes mellitus with neurological manifestations (CMS-HCC) Inject 0.1 mL (0.6 mg total) under the skin daily for 7 days, THEN 0.2 mL (1.2 mg total) daily for 7 days, THEN 0.3 mL (1.8 mg total) daily for 120 days. 9 mL 5Active pen needle, diabetic (UNIFINE PENTIPS PLUS) 32 gauge x 5/32 needle Indications:Type II diabetes mellitus with neurological manifestations (CMS-HCC) use to INJECT victoza daily 100 each 5Active blood-glucose meter (TRUE METRIX GLUCOSE METER) [facility] Indications:Type II diabetes mellitus with neurological manifestations (CMS-HCC) Use to check glucose daily and calibrate CGM 1 each 5Active blood sugar diagnostic (TRUE METRIX GLUCOSE TEST STRIP) strip Indications:Type II diabetes mellitus with neurological manifestations (CMS-HCC) Use to check glucose daily and calibrate CGM 100 strip 5Active lancets 30 gauge [facility] Indications:Type II diabetes mellitus with neurological manifestations ([facility]) Use to check glucose daily and calibrate CGM 100 each 5Active metFORMIN XR (GLUCOPHAGE XR) 500 mg 24 hr tablet Indications:Type II diabetes mellitus with neurological manifestations ([facility]) Take 2 tablets (1,000 mg total) by mouth in the morning and at bedtime. 360 tablet 5Active metoprolol tartrate (LOPRESSOR) 100 mg tablet TAKE 1 TABLET BY MOUTH IN THE MORNING then TAKE 1 TABLET BY MOUTH BEFORE bedtime 180 tablet 5Active warfarin (COUMADIN) 5 mg tablet Indications:retirement current use of 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 therapy,S/P AVR (aortic valve replacement)Take 1-1.5 tablets (5-7.5 mg total) by mouth in the evening. as directed by [facility]ication [facility] (PPMM). 135 tablet 5Active omega-3 acid ethyl esters (LOVAZA) 1 gram capsule Indications:Coronary artery disease involving zuni coronary artery of zuni heart without angina pectoris,DyslipidemiaTake 2 capsules (2 g total) by mouth in the morning and 2 capsules (2 g total) before bedtime. 120 capsule Discontinued(Patient Never Started This Medication) metoprolol tartrate (LOPRESSOR) 100 mg tablet Take 1 tablet (100 mg total) by mouth in the morning and 1 tablet (100 mg total) before bedtime. 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 as directed by [facility]ication [facility] (PPMM). 135 tablet Discontinued(Reorder) enoxaparin (LOVENOX) 100 mg/mL syringe Indications:retirement current use of 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 therapy,S/P AVR (aortic valve replacement)Inject 1 mL (100 mg total) under the skin every 12 (twelve) hours. 20 mL Discontinued(Therapy completed) omadacycline 150 mg tablet Take 3 tablets on day 1 and day 2, then take 2 tablets daily for 12 days Discontinued(Therapy completed) Active Problems ProblemNoted DateDiagnosed DateDiabetic ulcer of right midfoot associated with type 2 diabetes mellitus, with fat layer abahybx1507/23/2023MSSA bacteremia 07/22/20235324Xcmgsv70/19/6893Awjqswthvbrw36/15/7863Wkyhgzd82/15/2024ellulitis of right foot07/17/2023Sepsis, due to unspecified organism, unspecified whether acute organ dysfunction kgqihcj9207/16/2023MS (altered mental status)07/16/2023 Alcohol abuse07/16/20239760Fqmsinzrkosk14/14/2024Left hoaqvfyoyn00/14/2024Type II diabetes mellitus with neurological cwlpbhfulwyuse41/23/2024therosclerosis of zuni artery of bzubnmcfw75/22/2023Ulcer of right foot with necrosis of muscle 12/26/2022Tobacco use12/26/2022Nonrheumatic aortic valve hiuttqofcrohq30/01/2022 Hyp hrt and chr kdny dis w/o hrt fail, w stg 5 chr kdny/ESRD03/25/2022AD (coronary artery disease)03/19/2022Upper GI bleed03/07/2022hronic ulcer of left foot with fat layer fziiwon2903/03/20222931Hhprrl47/30/2022 Overview (03/03/2022): Added automatically from request for surgery [id number] Stenosis of prosthetic aortic valve01/07/20222987Jacchbg13/25/2022besity (BMI 30-39.9)08/30/2021erebrovascular accident (CVA) of right basal ganglia 08/07/2021Neuropathy of left foot05/04/2021reop cardiovascular exam01/27/2019 Rib zpkvxukuc62/18/2017Chronic bilateral low back pain without sciatica 03/12/2017Long term current use of 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 ewxfxzy5108/14/2016S/P AVR (aortic valve replacement)08/14/2016Mitral valve gydgcec2106/14/2013 Resolved Problems ProblemNoted DateDiagnosed DateResolved DateNSTEMI (non-ST elevated myocardial infarction)Essential hypertension, sgshem6201/16/2015 04/03/2022ortic valve orjbxgyw50leeding nose04/03/2022 Encounters DateTypeDepartmentCare IhciRogtlmtzhfg45/26/7467Wpxhci21/09/2025 1:00 PM EDT Clinical Support [facility] - Pharmacy Medication Management [address] [place] [address] Yusuf Fletcher MD Type II diabetes mellitus with neurological manifestations ([facility]) (Primary Dx)02/09/20250739Lwahaj84/06/2025Refill [facility] [address] [facility] [address] [place] [address] Christianne Bernard APRN-[facility] Med Pqecun7602/06/2025Refill [facility] Family Medicine [address] [place] [address] Chino Harmon MD 01/25/2025 1:45 PM EDTFollow Up Anticoagulation 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 Medication Management [address] [place] [address] Leslie Ruth, [facility] 01/12/2025 1:00 PM EDTFollow Up Anticoagulation [facility] Medication Management [address] [place] [address] Yusuf Fletcher MD retirement current use of 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 therapy (Primary Dx); S/P AVR (aortic valve replacement)01/12/20259544Ufcgnq61/29/2025Telephone [facility] Medication Management [address] [place] [address] Medication Management, [facility] 12/29/2024 2:00 PM EDTFollow Up Anticoagulation [facility] Medication Management [address] [place] [address] Yusuf Flecther MD retirement current use of 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 therapy (Primary Dx); S/P AVR (aortic valve replacement)12/29/2024 1:30 PM EDTClinical Support [facility] Medication Management [address] [place] [address] Yusuf Fletcher MD Type II diabetes mellitus with neurological manifestations ([facility]) (Primary Dx)12/29/20246629Gnebcm06/22/2025Refill [facility] Medication Management [address] [place] [address] Leslie [facility] Type II diabetes mellitus with neurological manifestations ([facility])12/23/2024 Telephone [facility] Medication Management [address] [place] [address] Jud Santoyo MA 12/22/2024 3:30 PM EDTFollow Up Anticoagulation 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 Medication Management [address] [facility] [place] [address] Yusuf Fletcher MD retirement current use of 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 therapy (Primary Dx); S/P AVR (aortic valve replacement)12/20/20248856Wplapa52/15/2025 8:30 AM EDT - 12/16/2024 10:[address] [facility] [address] [place] [address] Afsaneh Hammond, DPFransisco AMPUTATION TOE 5th ray cogaljs6012/16/2024 8:30 AM EDTAnesthesia Event [facility] Surgery [address] [place] [address] Chino Laureano MD 12/16/2024 6:36 AM EDT - 12/16/2024 10:41 AM EDTHospital Encounter [facility] [address] [place] [address] Afsaneh Hammond, DPM Ulcer of right foot, with necrosis of bone (CMS-HCC) (Primary Dx); Acute osteomyelitis of right ankle or foot (CMS-HCC); Ulcer of toe of right foot, with necrosis of bone (CMS-HCC); Acute osteomyelitis of right foot (CMS-HCC) Discharge Disposition: Home12/16/20246128Iivkhm75/08/2025 10:30 AM EDTProcedure visit [facility] - Pre Admit [address] [facility] [place] [address] Preop examination (Primary Dx); Coronary artery disease, unspecified vessel or lesion type, unspecified whether angina present, unspecified whether zuni or transplanted heart; Atrial fibrillation, unspecified type (CMS-HCC); Type 2 diabetes mellitus with other specified complication, unspecified whether senior care insulin use (CMS-HCC)12/09/20246884Gnyadm96/07/2025Telephone [facility] [address] [phone] Lurdes Amaro RN Surgical Or Dental Srqnamszc04/01/2025Prior Authorization [facility] Pharmacy Medication Management [address] [place] [address] Medication Management, [facility] 12/01/2024 3:25 PM EDT - 12/01/2024 11:59 PM EDTHospital Encounter [facility] MRI Imaging [address] [place] [address] Afsaneh Hammond, DPFransisco Ulcer of right foot with fat layer exposed ([facility]); Cellulitis of right foot Discharge Disposition: Home12/01/2024Telephone [facility] Pharmacy Medication Management [address] [place] [address] Medication Management, [facility] 11/30/2024 2:15 PM EDTFollow Up Anticoagulation 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 Medication Management [address] [place] [address] Yusuf Fletcher MD Type II diabetes mellitus with neurological manifestations ([facility]) (Primary Dx)11/30/2024Travelfrom Last 3 Months Immunizations ImmunizationAdministration DatesNext DueCOVID-19, mRNA, LNP-S, PF, 30mcg/0.3mL Dose05/08/2021,10/23/2020,10/02/2020 Family History Medical HistoryRelationNameCommentsEarly deathFatherdonald BARGERStrokeMaternal GrandfatherCancerMotherBarbra Dalila BargerOvarian cancerMotherBarbra Dalila Thai Early deathSisterkimberly diamante bargerRelationNameStatusCommentsFatherdonald BARGERDeceasedMaternal GrandfatherMotherBarbra Dalila BargerDeceasedSisterkimberly diamante bargerDeceased Social History Tobacco UseTypesPacks/DayYears UsedDateSmoking Tobacco: Every PyjUziszlqlyu153.8 Started: 1975Smokeless Tobacco: Never Tobacco Cessation:Ready to Q uit: Not Asked; Counseling Given: Not Answered Alcohol UseStandard Drinks/WeekCommentsYes2 (1 standard drink = 0.6 oz pure alcohol)history of alcohol abuseAHC UtilitiesAnswerDate RecordedIn the past 12 months has the [employer], gas, oil, or water [employer] threatened to shut off services in your home?No07/21/2023Social Connection and Isolation PanelAnswer Date RecordedIn a typical week, how many times do you talk on the phone with family, friends, or neighbors?Once a week05/09/2022How often do you get together with friends or relatives?Once a week05/09/2022How often do you attend advent or gnosticist services?Never05/09/2022o you belong to any clubs or organizations such as advent groups, unions, fraternal or athletic groups, or school groups?No 05/09/2022How often do you attend meetings of the clubs or organizations you belong to?Never05/09/2022re you , , , , never , or living with a partner?Ubiczfq1205/09/2022UDIT-CAnswerDate RecordedQ1: How often do you have a drink containing alcohol?2-3 times a week05/09/2022Q2: How many drinks containing alcohol do you have on a typical day when you are drinking?3 or Q3: How often do you have six or more drinks on one occasion?Rmtnjqy0805/09/2022Overall Financial Resource Strain (CARDIA)AnswerDate RecordedHow hard is it for you to pay for the very basics like food, housing, medical care, and heating?Not hard at all05/09/2022HQ-2AnswerDate RecordedTotal Ndope694Fin[facility] [place] of Occupational Health - Occupational Stress QuestionnaireAnswerDate [...] or from getting things needed for daily living?No07/21/2023Housing InstabilityAnswerDate RecordedAre you worried or concerned that in the next two months you may not have stable housing that you own, rent or stay in as a part of a household?No07/21/2023 ChildcareAnswerDate RecordedDo problems getting children's nursery assistant make it difficult for you to work [...] and direction in my life.Neither Agree nor Kwlqjygn95/06/2023Education AnswerDate RecordedWhat is the highest level of school you have completed or the highest degree you have received?11th grade04/30/2020Sex and Gender Information ValueDate RecordedSex Assigned at EtfqbLbre59/13/2020 6:23 PM EDTLegal SexMale 12/07/2014 11:22 AM EDTGender VuymlrzdMjgn94/13/2020 6:23 PM EDTSexual ZravtgxehjoGbylcppc70/13/2020 6:23 PM EDT Last Filed Vital Signs Vital SignReadingTime TakenCommentsBlood Ljxolqdl448/6610/01/2025 1:07 PM EDT Xpwml411802/09/2025 1:07 PM ZMMTrhviscjnzn22.6 ??C (97.9 ??F)12/16/2024 6:56 AM EDTRespiratory Fxnx951512/16/2024 6:56 AM EDTOxygen Wrptlipwpd26%02/09/2025 1:07 PM EDTInhaled Oxygen Concentration--Wnmdkm108.9 kg (229 lb)02/09/2025 1:07 PM OIKIwpfmh319.7 cm (5' 8 )12/16/2024 6:56 AM EDTBody Mass Index34.8212/16/2024 6:56 AM EDT Plan of Treatment DateTypeDepartmentCare Team (Latest Contact Info)Nlwsjiwwyom60/28/2025 9:45 AM EDTFollow Up Anticoagulation [facility] Medication Management [address] [place] [address] Yusuf Fletcher MD [employer] [place] [address] 02/28/2025 10:30 AM EDTOffice Visit [facility] [address] [phone] Naty Patino MD [address] [place] [address] 05/12/2025 1:00 PM ESTClinical Support [facility] Medication Management [address] [place] [address] Yusuf Fletcher MD [address] [place] [address] Health MaintenanceDue DateLast DoneCommentsDiabetic Ophthalmology Exam1961 Tobacco Cnieetoptn56/15/1962dult BMI Follow Up Plan1979DTaP,Tdap and Td Vaccines (1 - Tdap)1980Zoster (Shingles) Vaccine (1 of 2)2011 Fzhgbvqtkne27/04/984820/08/2018, 03/07/2019Diabetic Foot Exam07/15/2024 07/16/2023OVID-19 Vaccine (2024- season)501/09/2021, 10/23/2020, 10/02/2020Influenza Gxxkvbn1501/02/2025Depression Kndlktxdz37/ Tobacco Zhedwlbvn14dult BMI Osywtxezv15 Goals GoalPatient Goal TypeAssociated ProblemsRecent ProgressPatient-Stated?Author <enter goal here> Doris Handley RN Note: Evaluation of progress towards goal: patient progressing toward safe discharge. Medical Devices ImplantedTypeAreaManufacturerDevice IdentifierShelf Expiration DateModel / Serial / LotMatrix Tissue Acellular Human Placental Axiofill 250mg Rpl [id number] - [id number] - [id number] Implanted:Qty: 1 on 06/26/2023 [facility] DegkWLMVVH70/01/2028PCM-0250 / [id number] / NATissue Hmn 1x2cm Epicord - [id number] - [id number] Implanted:Qty: 2 on 06/26/2023 by [facility]: TfwyMBJAQY69/01/2028EC-5120 / [id number] / NAMatrix Tissue Acellular Human Placental Axiofill 250mg Rpl [id number] - [id number] - [id number] Implanted:Qty: 1 on 07/10/2023 by [facility]: IzbgPAOPKY08/01/2028PCM-0250 / [id number] / N/AAmnioexcel Plus Implanted:Qty: 9 on 10/02/2023 by [facility]Right: FootINTEGRA LIFESCIENCE [id number] / NA / [id number] Aor 16.1mm 23mm 33mm 21.4mm Onx Cnfrm-X Sw Rng Ptfe - [id number] - [id number] Implanted:Qty: 1 on 03/19/2022 by Soto Hill [facility] ValveN/A: DcprnUNQVTWGU44/27/2028ONXACE-23 / [id number] / [id number]/08/2011 Implanted:08/06/2011 (Quantity not on file)Prosthetic Tglmp72EY-949 / [id number] / System Cor Stnt 3.5mm X 38mm 145cm Xience Skypoint Mtlnk [place] - [id number] Implanted:Qty: 1 on 05/13/2023 by Mary Beth De Leon MD at [place] [id number] / / [id number] Cor Stnt 3.5mm X 18mm 145cm Xience Skypoint Mtlnk [place] - [id number] Implanted:Qty: 1 on 05/13/2023 by Mary Beth De Leon MD at [place] [id number] / / [id number] Cor Stnt 3.5mm X 23mm 145cm Xience Skypoint Mtlnk [place] - [id number] Implanted:Qty: 1 on 05/13/2023 by Mary Beth De Leon MD at [place] [id number] / / [id number] Procedures Procedure NamePriorityDate/TimeAssociated DiagnosisCommentsPOCT HEMOGLOBIN A1C UXJMmgmanu33/09/2025 3:55 PM EDT Type II diabetes mellitus with neurological manifestations (CMS-HCC) POCT PROTIME / XMPDehfoiy85/24/2025 1:51 PM EDT 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 S/P AVR (aortic valve replacement) POCT PROTIME / LUHDsqungi68/11/2025 1:01 PM EDT retirement current use of 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 therapy S/P AVR (aortic valve replacement) POCT PROTIME / MBFHmrgbda20/28/2025 1:24 PM EDT 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 S/P AVR (aortic valve replacement) POCT PROTIME / IYLQeknucv26/21/2025 3:27 PM EDT 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 S/P AVR (aortic valve replacement) POCT PROTIME / HLJXbpmtyh45/19/2025 2:00 PM EDT retirement current use of 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 therapy S/P AVR (aortic valve replacement) BONE VWTQJVGGnkozfq23/15/2025 9:06 AM EDT Acute osteomyelitis of right ankle or foot (CMS-HCC) Ulcer of toe of right foot, with necrosis of bone (CMS-HCC) ANAEROBIC FDUPQRPSpedcsj92/15/2025 9:06 AM EDT Acute osteomyelitis of right ankle or foot (CMS-HCC) Ulcer of toe of right foot, with necrosis of bone (CMS-HCC) AMPUTATION TOE12/16/2024 8:30 AM EDT Acute osteomyelitis of right ankle or foot (CMS-HCC) Ulcer of toe of right foot, with necrosis of bone (CMS-HCC) Special Needs Sagittal saw, pulsa vac with 3 liters of saline, Hemiguard, Peel and Place vac, supine position HEMOGLOBIN AND HEMATOCRIT, GXQTJDecjqhm44/08/2025 11:29 AM EDT Preop examination Coronary artery disease, unspecified vessel or lesion type, unspecified whether angina present, unspecified whether zuni or transplanted heart Atrial fibrillation, unspecified type (CMS-[facility]) Type 2 diabetes mellitus with other specified complication, 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 ([facility]) BASIC METABOLIC SZMXZKddrwgw11/08/2025 11:29 AM EDT Preop examination Coronary artery disease, unspecified vessel or lesion type, unspecified whether angina present, unspecified whether zuni or transplanted heart Atrial fibrillation, unspecified type ([facility]) Type 2 diabetes mellitus with other specified complication, unspecified whether senior care insulin use ([facility]) MR FOOT RT W WO ERFNYvynags42/31/2025 4:40 PM EDT Ulcer of right foot with fat layer exposed ([facility]) Cellulitis of right foot POCT PROTIME / HNOSmrynvm37/30/2025 2:05 PM EDT 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 S/P AVR (aortic valve replacement) PROVATION FBBTQSPWAJRMucycnh13/04/2019 6:38 AM EST from Last 3 Months or Most Recently Relevant to Health Maintenance Results * POCT Hemoglobin A1C - MTM (02/09/2025 3:55 PM EDT)ComponentValueRef RangeTest MethodAnalysis TimePerformed AtPathologist SignatureExternal MTM Hemoglobin A1C5.84 - 6MANUALLY TRANSCRIBED RESULTSSpecimen (Source)Anatomical Location / LateralityCollection Method / VolumeCollection TimeReceived TimeBlood 02/09/2025 3:55 PM EDT Narrative Authorizing ProviderResult TypeResult StatusPromedica Pharmacy Medication ManagementPOINT OF CARE TEST ORDERABLESFinal ResultPerforming Organization AddressCity/State/ZIP CodePhone Number MANUALLY TRANSCRIBED RESULTS * (ABNORMAL) POCT Protime / INR (01/25/2025 1:51 PM EDT) Only the most recent of6 resultswithin the time period is included. ComponentValueRef RangeTest MethodAnalysis TimePerformed AtPathologist Signature INR2.0(A)0.8 - 1.2MANUALLY TRANSCRIBED RESULTSSpecimen (Source)Anatomical Location / LateralityCollection Method / VolumeCollection TimeReceived Time 01/25/2025 1:51 PM EDT Narrative Authorizing ProviderResult TypeResult StatusPromedica Pharmacy Medication ManagementPOINT OF CARE TEST ORDERABLESFinal ResultPerforming Organization AddressCity/State/ZIP CodePhone Number MANUALLY TRANSCRIBED RESULTS * (ABNORMAL) Bone culture (12/16/2024 9:06 AM EDT)ComponentValueRef RangeTest MethodAnalysis TimePerformed AtPathologist SignatureCULTURE RESULTS Enterococcus faecalis(A)12/20/2024 7:[address]URE RESULTSMethicillin-Resistant Staphylococcus aureus(A) 12/20/2024 7:[address] RESULTS Diphtheroids(A)12/20/2024 7:[address] [facility] Comment:Unable To IsolateSpecimen (Source)Anatomical Location / Laterality Collection Method / VolumeCollection TimeReceived TimeBoneEntire toe of right foot / Tfyzxip2712/16/2024 9:06 AM EDT12/16/2024 9:59 AM EDTComment:Pre-op diagnosis: Acute osteomyelitis of right ankle or foot ([facility]) [M86.171] Ulcer of toe of right foot, with necrosis of bone ([facility]) [L97.514] Narrative OrganismAntibioticMethodSusceptibilityEnterococcus faecalisAmpicillin <=2.0: Susceptible Enterococcus faecalisVancomycin 1.0: Susceptible Enterococcus faecalisSusceptibility CommentMethicillin-Resistant Staphylococcus aureusClindamycin >=4.0: Resistant Methicillin-Resistant Staphylococcus aureusDaptomycin =0.25: Susceptible Methicillin-Resistant Staphylococcus aureusDoxycycline 1.0: Susceptible Methicillin-Resistant Staphylococcus aureusOxacillin >=4.0: Resistant Methicillin-Resistant Staphylococcus aureusTrimethoprim + Sulfamethoxazole <=0.5: Susceptible Methicillin-Resistant Staphylococcus aureusVancomycin <=0.5: Susceptible Methicillin-Resistant Staphylococcus aureusCefazolin Resistant (deduced) Methicillin-Resistant Staphylococcus aureusSusceptibility CommentAuthorizing ProviderResult TypeResult StatusAfsaneh Hammond DPMMICROBIOLOGY - GENERAL ORDERABLESFinal ResultPerforming OrganizationAddressCity/State/ZIP CodePhone Number [facility] [address] [place] [address], * Anaerobic culture (12/16/2024 9:06 AM EDT)ComponentValueRef RangeTest Method Analysis TimePerformed AtPathologist SignatureCULTURE RESULTSNO ANAEROBIC ORGANISMS NVYNBKFK05/20/2025 9:[address] [facility] Specimen (Source)Anatomical Location / LateralityCollection Method / Volume Collection TimeReceived TimeBoneEntire toe of right foot / Wcrwteu7012/16/2024 9:06 AM EDT12/16/2024 9:59 AM EDTComment:Pre-op diagnosis: Acute osteomyelitis of right ankle or foot ([facility]) [M86.171] Ulcer of toe of right foot, with necrosis of bone ([facility]) [L97.514] Narrative Authorizing ProviderResult TypeResult StatusAfsaneh Hammond DPMMICROBIOLOGY - GENERAL ORDERABLESFinal ResultPerforming OrganizationAddressCity/State/ZIP Code Phone Number [facility] [address] [place] [address], * Hemoglobin and hematocrit, blood (12/09/2024 11:29 AM EDT)ComponentValueRef RangeTest MethodAnalysis TimePerformed AtPathologist XmqnxqkvnEaizeynurh99.613 - 17 g/dL12/09/2024 6:[address]ATORYHematocrit 45.939 - 50 %12/09/2024 6:[address]ATORYSpecimen (Source)Anatomical Location / LateralityCollection Method / VolumeCollection TimeReceived TimeBloodVenous blood / UnknownVenipuncture / Ggajyul1512/09/2024 11:29 AM EDT12/09/2024 11:34 AM EDT Narrative Authorizing ProviderResult TypeResult StatusChino Laureano MDLAB BLOOD ORDERABLESFinal ResultPerforming OrganizationAddressCity/State/ZIP CodePhone Number [facility] [address] [place] [address], [place] [phone] * (ABNORMAL) Basic Metabolic Panel (12/09/2024 11:29 AM EDT)ComponentValueRef RangeTest MethodAnalysis TimePerformed AtPathologist QuomihmulUOJNOX082911 - 146 mmol/L12/09/2024 6:[address]ATORYPOTASSIUM 4.53.5 - 5.0 mmol/L12/09/2024 6:[address] [facility] IDRCUXYH63231 - 109 mmol/L12/09/2024 6:[address] LABORATORYCARBON OKXMNEF4520 - 32 mmol/L12/09/2024 6:[address]ORATORYANION GAP85 - 15 mmol/L12/09/2024 6:[address] [facility]ATORYBLOOD UREA GBEYYYDH352 - 27 mg/dL12/09/2024 6:[address]ATORYCREATININE0.800.60 - 1.30 mg/dL 12/09/2024 6:[address]ORATORYComment:METHOD TRACEABLE TO IDAZ GSKKKTYYVOUIWKF468(H)65 - 99 mg/dL12/09/2024 6:30 PM EDT [facility] LABORATORYCALCIUM9.68.5 - 10.5 mg/dL12/09/2024 6:[address] [facility]ORYEGFR Non-Race Dependent>90>=60 ml/min/1.73sq.m012/09/2024 6:[address] [facility] Comment: Reported eGFR is based on the CKD-EPI 2020 equation that does not use a race coefficient. Specimen (Source)Anatomical Location / LateralityCollection Method / Volume Collection TimeReceived TimeBloodVenous blood / UnknownVenipuncture / Unknown 12/09/2024 11:29 AM EDT12/09/2024 11:34 AM EDT Narrative Authorizing ProviderResult TypeResult StatusDaviana Laureano MDLAB BLOOD ORDERABLESFinal ResultPerforming OrganizationAddressCity/State/ZIP CodePhone Number [facility] [address] [place] [address], * MR foot right with and without contrast (12/01/2024 4:40 PM EDT)Anatomical RegionLateralityModalityMSK, Foot, Lower Extremities, MSK CoveraRightMagnetic ResonanceSpecimen (Source)Anatomical Location / LateralityCollection Method / VolumeCollection TimeReceived Time12/05/2024 1:21 PM EDT Narrative 12/05/2024 1:27 PM EDT MRI right foot with and without contrast [...] MD on 12/05/2024 1:27 PM Procedure Note Sree Rico MD - 12/05/2024 MRI right foot with and without contrast [...] on 12/05/2024 1:27 PM Authorizing ProviderResult TypeResult StatusJesscatarino Hammond DPMIMG MRI ORDERABLESFinal Result * ES colonoscopy imaging (03/07/2019 6:38 AM EST)Specimen (Source)Anatomical Location / LateralityCollection Method / VolumeCollection TimeReceived Time Narrative SYSTEMGENERATED, DOCUMENTATION - 03/07/2019 6:38 AM EST This order has been auto-finalized for image and report archival. *See procedures tab in Epic or report included with PACS images for full interpretation.* Authorizing ProviderResult TypeResult StatusMichael E Grillis DOIMG OR IMG ORDERABLESFinal Result from Last 3 Months or Most Recently Relevant to Health Maintenance Insurance * Guarantor: Yohannes Andre DAccount TypeRelation to PatientDate of BirthPhone Billing AddressPersonal/XejfvtRiqb14/15/1961 [facility] [place] [address] Advance Directives * Full Code (Latest Code Status on File) Date ActivatedDate InactivatedComments07/21/2023 10:26 PM07/27/2023 9:06 PM * Full Code Date ActivatedDate InactivatedComments07/16/2023 6:14 PM07/21/2023 9:07 PM * Full Code Date ActivatedDate GpqrbmsjzhaAvllcdax86/16/2022 2:28 PM03/24/2022 2:55 PM * Full Code Date ActivatedDate ReqqxdthscvXndjflqa22/30/2022 8:47 PM03/08/2022 6:13 PM * Full Code Date ActivatedDate InactivatedComments12/27/2021 2:19 PM12/27/2021 5:36 PM Care Teams Team MemberRelationshipSpecialtyStart DateEnd Date Nathalie Handley APRN-CAITY [address] [place] [address] PCP - GeneralNurse Practitioner09/08/24
--- OUTSIDE RECORDS SUMMARY | 2025-02-27 11:52 | XMS_ITS | Encounter Summary ---
Author Organization [employer] [facility] tem Address [id number] [address] 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 Apprentice Name Role Phone Nathalie Handley Primary Care Provid er Encounter Details DateTypeDepartmentCare Team (Latest Contact Info)Idyeziffyji18/26/2025Travel Social History Tobacco UseTypesPacks/DayYears UsedDateSmoking Tobacco: Every MduIpssvftmon203.8 Started: 1974Smokeless Tobacco: NeverAlcohol UseStandard Drinks/WeekCommentsYes2 (1 standard drink = 0.6 oz pure alcohol)history of alcohol abuseAHC Utilities AnswerDate RecordedIn the past 12 months has the electric, gas, oil, or water [employer] threatened to shut off services in your home?No07/21/2023Social Connection and Isolation PanelAnswerDate RecordedIn a typical week, how many times do you talk on the phone with family, friends, or neighbors?Once a week 05/09/2022How often do you get together with friends or relatives?Once a week 05/09/2022How often do you attend buddhism or congregational services?Never05/09/2022o you belong to any clubs or organizations such as buddhism groups, unions, fraternal or athletic groups, or school groups?No05/09/2022How often do you attend meetings of the clubs or organizations you belong to?Never05/09/2022re you , , , , never , or living with a partner?Dwkueld7005/09/2022UDIT-CAnswerDate RecordedQ1: How often do you have a drink containing alcohol?2-3 times a week05/09/2022Q2: How many drinks containing alcohol do you have on a typical day when you are drinking?3 or 4 05/09/2022Q3: How often do you have six or more drinks on one occasion?Monthly 05/09/2022Overall Financial Resource Strain (CARDIA)AnswerDate RecordedHow hard is it for you to pay for the very basics like food, housing, medical care, and heating?Not hard at all05/09/2022HQ-2AnswerDate RecordedTotal Gahvj640 [facility] of Occupational Health - Occupational Stress Questionnaire AnswerDate RecordedDo you feel stress - tense, restless, nervous, or anxious, or unable to sleep at night because yourmind is troubled all the time - these days? Not at all05/09/2022Exercise Vital SignAnswerDate RecordedOn average, how many days per week do you engage in moderate to strenuous exercise (like a brisk wal k)?0 days05/09/2022On average, how many minutes do you [...] stay in as a part of a household?No07/21/2023hildcareAnswer Date RecordedDo problems getting children's nursery assistant make [...] and direction in my life.Neither Agree nor Jvvraibe17/06/2023EducationAnswerDate RecordedWhat is the highest level of school you have completed or the highest degree you have received?11th grade04/30/2020Sex and Gender InformationValueDate RecordedSex Assigned at DalnpKwlg78/13/2020 6:23 PM EDTLegal AphMapj6212/07/2014 11:22 AM EDT Gender EeaxrmnlYmzg41/13/2020 6:23 PM EDTSexual BevpkhgvdqjOdyybfdy40/13/2020 6:23 PM EDTdocumented as of this encounter Plan of Treatment DateTypeDepartmentCare Team (Latest Contact Info)Nsufmgmstsy12/28/2025 9:45 AM EDTFollow Up Anticoagulation [facility] - [facility] Medication Management [address] [place] [address] Yusuf Fletcher MD [facility], [address] [place] [address] 02/28/2025 10:30 AM EDTOffice Visit [facility] [address] [place] [address] Naty Patino MD [address] [place] [address] 05/12/2025 1:00 PM ESTClinical Support [facility] Medication Management [address] [place] [address] Yusuf Fletcher MD [address] [place] [address] documented as of this encounter Goals GoalPatient Goal TypeAssociated ProblemsRecent ProgressPatient-Stated?Author <enter goal here> Doris Handley, GINA Note: Evaluation of progress towards goal: patient progressing toward safe discharge. documented as of this encounter Visit Diagnoses Not on filedocumented in this encounter Additional Health Concerns AssessmentNoted TimePHQ-9 Depression Total Score: 2:03 PM EDTA Body Mass Index follow-up plan has been documented for the cdwvhve1311/13/2017 2:35 PM EDTdocumented as of this encounter Care Teams Team MemberRelationshipSpecialtyStart DateEnd Date Nathalie Handley APRN-CAITY [address] [place] [address] PCP - GeneralNurse Practitioner09/08/24documented as of this encounter
[2025-02-28 07:08] LABS: Vitamin B12 379 pg/mL (232-1245)
== END 2025-02-27 11:48 | disposition home or self-care (01) ==
LOC: LAB 11:49
PROVIDERS: Family Provider Family Medicine; PCP Nurse Practitioner Family
DX: E11.49 Type 2 diabetes mellitus with other diabetic neurological complication (principal)
CPT/HCPCS: 36415; 82607

== ENCOUNTER 2025-03-06 12:23 | Outpatient (OUT) | payer MEDICAID, SELFPAY ==
--- OUTSIDE RECORDS SUMMARY | 2025-02-28 14:45 | XMS_ITS | Encounter Summary ---
Author Organization [facility] Healthcare Address [address] [place] [address] Care Team Providers Care Geosciences Professor Name Role Phone Jose Garner Primary Care Provider [phone] Reason for Referral * Medications - Pending ReviewSpecialtyDiagnoses / ProceduresReferred By Contact Referred To Contact Diagnoses Ulcer of foot with muscle involvement without evidence of necrosis, unspecified laterality (HCC) Infection of skin and subcutaneous tissue Afsaneh Hammond DPM [address] [place] [address] Phone: tel: fax: Referral IDStatusReasonStart DateExpiration DateVisits RequestedVisits [id number] * Imaging (Routine) - AuthorizedSpecialtyDiagnoses / ProceduresReferred By ContactReferred To ContactRadiology Diagnoses Ulcer of left foot with fat layer exposed (HCC) Procedures MR foot left w and wo IV contrast Afsaneh Hammond DPM [address] [place] [address] Phone: tel: fax: [facility] [address] [place] [address] Phone: tel: fax: Referral IDStatusReasonStart DateExpiration DateVisits RequestedVisits [id number]/28/20254/ Reason for Visit * ReasonCommentsWound CareEd Jorge Govea is a 64 y.o. male. Established patient requested to be seen. states Left foot blister, center is red and seeping clear and pink. Patient states Rt foot remains healed.Patient states new tennis shoe bother his right ankle, he feels no support, he relates a pulled muscle, he started wearing cam walker boot today, he stepped in a hole in the yard and aggravated it. /BS: 183A1C: 5.6/LV Leslie Faraz 02-09-2025 Encounter Details DateTypeDepartmentCare Team (Latest Contact Info)Gouhlgesdcy73/28/2025 3:45 PM EDTOffice Visit [facility] [address] [place] [address] Afsaneh Hammond DPM [address] [place], [place] [id number] Infection of skin and subcutaneous tissue (Primary Dx); Ulcer of foot with muscle involvement without evidence of necrosis, unspecified laterality (HCC); Type II or unspecified type diabetes mellitus with neurological manifestations, not stated as uncontrolled(250.60) ([facility]); Status post amputation of lesser toe of right foot ([facility]) Social History Tobacco UseTypesPacks/DayYears UsedDateSmoking Tobacco: Every DayCigarettes0.515 Smokeless Tobacco: Never Comments:Smoked 1-2 pks a da y for [address] back 1/2 pk orless a day Alcohol UseStandard Drinks/WeekCommentsNot Currently6 (1 standard drink = 0.6 oz pure alcohol)Sex and Gender InformationValueDate RecordedSex Assigned at Not on fileLegal IrsHkpb4912/30/2022 2:14 PM EDTGender IdentityNot on fileSexual OrientationNot on filedocumented as of this encounter Last Filed Vital Signs Vital SignReadingTime TakenCommentsBlood Pressure--Pulse--Mqvhijyghej15.7 ??C (98 ??F)02/28/2025 3:52 PM EDTRespiratory Rate--Oxygen Saturation--Inhaled Oxygen Concentration--Yxeyaw396 kg (226 lb)02/28/2025 3:52 PM JNPRxvmyh919.8 cm (5' 10 )02/28/2025 3:52 PM EDTBody Mass Index32.4310 3:52 PM EDT documented in this encounter Progress Notes * Afsaneh Hammond, ASA - 02/28/2025 3:45 PM EDT Images from the original note were not included. Subjective Patient ID: Ed Jorge Govea is a 64 y.o. male who presents for Wound Care (Ed Jorge Govea is a 64 y.o. male. Established patient requested to be seen. states Left foot blister, center is red and seeping clear and pink. Patient states Rt foot remains healed.Patient states new tennis shoe bother his right ankle, he feels no support, he relates a pulled muscle, he started wearing cam walker boot today, he stepped in a hole in the yard and aggravated it. /BS: 183A1C: 5.6/LV Leslie Faraz 02-09-2025). HPI Patient presents for recheck of L foot ulceration. He has been full weightbearing in diabetic shoes. He is usually covering the wound with neosporin and Band-Aid. It has been draining with increase surrounding redness and swelling. He also states the area has been tender. He describes a forced dorsiflexion injury to R ankle causing sore calf. He has been wearing CAM walker HX: 2 revascularization procedures done, most recently 03/07/[address] De Leon. Review of Systems Medications Current Outpatient Medications: albuterol HFA 90 mcg/act inhaler, Inhale 2 puffs every 6 (six) hours if needed for wheezing, Disp: , Rfl: amLODIPine (Norvasc) 5 MG tablet, Take 5 mg by mouth Daily, Disp: , Rfl: clopidogrel (Plavix) 75 MG tablet, Take 75 mg by mouth Daily, Disp: , Rfl: Continuous Blood Gluc Aging Room Operator (Dexcom G7 Aging Room Operator) device, , Disp: , Rfl: Continuous Blood Gluc Sensor (Dexcom G7 Sensor) misc, , Disp: , Rfl: Docusate Sodium (DSS) 100 MG capsule, Take 100 mg by mouth in the morning and 100 mg in the evening., Disp: , Rfl: fexofenadine (Malou) 180 MG tablet, Take 180 mg by mouth Daily, Disp: , Rfl: hydrOXYzine HCl (Atarax) 25 MG tablet, Take 25 mg by mouth in the morning., Disp: , Rfl: Liraglutide (VICTOZA SC), Inject under the skin, Disp: , Rfl: metFORMIN (Glucophage) 500 MG tablet, Take 250 mg by mouth, Disp: , Rfl: metoprolol tartrate (Lopressor) 100 MG tablet, Take 100 mg by mouth in the morning and 100 mg before bedtime., Disp: , Rfl: omadacycline (Nuzyra) 150 MG tablet tablet, Take 3 tablets on day 1 and day 2, then take 2 tablets daily for days 3-14, Disp: 34 tablet, Rfl: 0 warfarin (Coumadin) 5 MG tablet, Take by mouth Take as directed per After Visit Summary., Disp: , Rfl: Wound Dressings ([facility] wound/burn) gel, Apply 1 application topically Daily, Disp: 44 mL, Rfl: 3 Allergies Cephalexin, Clindamycin, and Doxycycline Past Surgical History Past Surgical History: Procedure Laterality Date AORTIC VALVE REPLACEMENT CARDIAC VALVE REPLACEMENT CORONARY ARTERY BYPASS GRAFT CT ANGIOGRAM ABDOMEN PELVIS 03/02/2022 CT ANGIOGRAM ABDOMEN PELVIS 03/02/2022 CT ANGIOGRAM HEART CORONARY 07/16/2023 CT ANGIOGRAM TAVR 07/16/2023 CT GUIDED TRANSVAGINAL TRANSRECTAL FLUID DRAIN 12/26/2021 CT GUIDED TRANSVAGINAL TRANSRECTAL FLUID DRAIN 12/26/2021 CT GUIDED TRANSVAGINAL TRANSRECTAL FLUID DRAIN 08/07/2021 CT GUIDED TRANSVAGINAL TRANSRECTAL FLUID DRAIN 08/07/2021 FRACTURE SURGERY SKIN GRAFT Right 10/02/2023 VASCULAR SURGERY Right 03/07/2024 angiogram with stent placement, RLE Family History Family History Problem Relation Name Age of Onset Cancer Mother MARTIN GOVEA Accidental Father Loco thakkar Accidental Sister Vangie Govea Objective Physical Exam Cardiovascular: Comments: Pedal pulses: DP 2/4 bilateral, PT 1/4 bilateral. Skin temp is warm to warm. Varicosities: absent Hair growth: present Pulmonary: Breath sounds: Wheezing present. Musculoskeletal: General: No tenderness. Right lower leg: Edema (ankle) present. Left lower leg: Edema (ankle) present. Comments: FOOT MORPHOLOGY: rectus JOINT RANGE OF MOTION: AJ range motion is painful and limited. DEFORMITIES: 5th digit contracted L, right partial 5th ray amputation MUSCLE STRENGTH: 5/5 for dorsiflexion, plantarflexion, inversion, eversion. PAIN: none Skin: General: Skin is warm. Capillary Refill: Capillary refill takes 2 to 3 seconds. Findings: No bruising or erythema. Comments: SKIN FINDINGS: right lateral foot skin incision is healed. Webspaces are clean and dry. HYPERKERATOSIS: sub 5th met head L NAIL PATHOLOGY: Nails 1 bilaterally are 7 mm thick, yellow and white, dystrophic, with subungual debris. Nail 2 right is 4 mm thick, discolored, fungal, incurvated Skin texture and turgor: dry, turgor diminished. Ulcer #1 Ulcer location: L sub 5th metatarsal head Ulcer Size: 02/28/2025: 1.5 x 1.5 x 0.4 cm, circumferential 2 mm undermining, exposed capsule 02/09/2025: 1 x 0.7 x 0.4 cm with circumferential 3-4 mm undermining 01/26/2025: 0.8 x 0.7 x 0.4 cm 01/05/2025: 0.6 x 0.5 x 0.4 cm with circumferential 2 mm undermining 12/22/2024: 0.8 x 0.7 x 0.4 cm 12/06/2024: 0.8 x 0.8 x 0.4 cm 11/24/2024: 0.8 x 0.9 x 0.5 cm 11/08/2024: 1.2 x 1.2 x 0.3 cm 10/13/2024: 0.7 x 0.7 x 0.2 cm 09/22/2024: 0.4 x 0.3 x 0.2 cm 09/01/2024: 0.5 x 0.1 x 0.2 cm palliative wound care started 08/18/2024 0.4 x 0.4 x 0.5cm 08/04/2024: 0.4 x 0.3 x 0.1 cm 07/28/2024: Healed 07/21/2024: 0.5 x 0.2 x 0.2 cm 07/14/2024: Healed 07/07/2024: 0.5 x 0.3 x 0.1 cm 06/30/2024: Healed 06/21/2024: Plantar 0.7 x 0.1 x 0.2 cm, lateral 0.7 x 0.4 x 0.1 cm 06/09/2024: 3 x 1.5 x 0.2 cm 06/02/2024: 4.1 x 2.3 x 0.2 cm - large blister, deroofed 05/26/2024: Healed 05/19/2024: 0.4 x 0.1 x 0.1 cm Ulcer 1 base is pink and yellow, fibrous, black and spencer in color. Central wound bed there is a 1cm track present. The capsule is exposed at the wound bed. There is significant hyperkeratotic tissue surrounding the wound. There is undermining noted. There is erythema noted lateral and dorsal to the 5th met head L foot. No proximal streaking. No purulent drainage. Neurological: Mental Status: He is alert and oriented to person, place, and time. Comments: Light touch sensation intact Vibratory sensation: absent at IPJ, MPJ, medial malleolus bilaterally [place] monofilament: absent at 10/10 sites Psychiatric: Mood and Affect: Mood normal. Behavior: Behavior normal. Bone culture R [address] [place] [address] head 12/16/24: E. Faecalis, MRSA, Diptheroids. MRSA susceptible to daptomycin, doxycycline, Bactrim, vanco MRI at [facility] 12/01/2024: shows osteomyelitis of the 5th digit and 5th metatarsal. Septic arthritis ofthe 5th MTPJ with pathologic fracture. No abscess. 03/13/23 AUGUSTO with PVR Right: Essentially normal PVR waveform contour at all cuff levels. Calf waveform augmentation noted. PT AUGUSTO is 1.05; DP AUGUSTO is 1.10. TBI is 0.49. Multiphasic with diastolic flowreversal common femoral, Monophasic PT and DP CW Doppler waveforms. Left: Mildly abnormal PVR waveform contour at the thigh and calf level, Moderately abnormal PVR waveform contour at the ankle level. Calf waveform augmentation noted. PT AUGUSTO is 0.84; DP AUGUSTO is 0.66. TBI is 0.54. Multiphasic with diastolic flow reversal common femoral, Monophasic PT and DP CW Doppler waveforms. Conclusions: RIGHT: Multilevel arterial disease (femoropopliteal and tibioperoneal); AUGUSTO consistentwith mild arterial disease.LEFT: Multilevel arterial disease (femoropopliteal and tibioperoneal); AUGUSTO consistent with moderate arterial disease. Last XRAY: 02/2025, left foot Modifier: Q 7, Q9 XR foot 3+ views left Imaging Result: 3 views foot: AP, MO, and lateral of the left foot were taken and show no acute osseous abnormalities of 5th metatarsal head or base of 5th proximal phalanx. These views were compared to the same views taken on 02/09/25. There are mild degenerative changes noted of the 1st MTPJ and tn joint. Hypertrophic fibular sesamoid present. Assessment/Plan ICD-10-CM 1. Infection of skin and subcutaneous tissue L08.9 omadacycline (Nuzyra) 150 MG tablet tablet 2. Ulcer of foot with muscle involvement without evidence of necrosis, unspecified laterality ([facility])L97.505 XR foot 3+ views left MR foot left w and wo IV contrast Creatinine, Serum Creatinine, Serum omadacycline (Nuzyra) 150 MG tablet tablet Patient was examined and evaluated. Left foot with new cellulitis. Wound is bigger and deeper, sub 5th MTPJ capsule is exposed. Patient unable to tolerate doxycycline and clinda due to GI intolerance. Allergic to Cephalexin. Will write for Nuzyra. He has taken this previously and tolerated it well.Discussed repeating x-rays today to reassess bone. Radiographs were taken and no significant acute changes were noted of the 5th metatarsal head. Recommended we obtain MRI to assess the health of the 5th metatarsal head. If noninfected, we will recommend referral to Dr. De Leon and start local wound care with NWB and possibly wound vac. If the bone is infected, will recommend partial 5th ray amputation with follow up referral to Dr. De Leon for revascularization procedure. MRI with and without contrast of L foot ordered to [facility]. Full thickness ulcer debridement. Verbal consent obtained. Sharp, excisional, active debridement carried out by me. Selectively removing all devitalized and nonviable tissue including epidermal, dermal and deep sub q tissue, and muscle. Exposed capsule present. Yellow protein build up and bioburdenalso debrided. Instrumentation used includes tissue nipper, curette, and #15 surgical blade. No pusencountered. Bleeding encountered with debridement. No anesthesia required due to neuropathy. DSD with antibiotic ointment applied. Pt instructed to change dressing once a day. Pt has appointment next week, will keep to review cellulitis and follow up MRI results. This note was created with the assistance of a speech recognition program. While intending to generate a timely document that accurately reflects the content of the visit, no guarantee can be provided that every grammatical or spelling mistake has been or will be identified or corrected. Thank you for your understanding. Afsaneh Hammond DPM documented in this encounter Plan of Treatment DateTypeDepartmentCare Team (Latest Contact Info)Sxiuxfqtcnq55/06/2025 10:30 AM ESTAncillary Procedure [facility] [address] [place] [address] 03/09/2025 4:00 PM ESTOffice Visit [facility] [address] [facility] [address] Afsaneh Hammond DPM [address] [facility] [place] [address] 03/21/2025 1:15 PM ESTOffice Visit [facility] [address] [place] [address] Afsaneh Hammond DPM [address] [facility] [place] [address] 05/30/2025 4:00 PM ESTProcedure Visit [facility] [address] [place] [id number] Afsaneh Hammond DPM [address] [place] [address] NameTypePriorityAssociated DiagnosesOrder ScheduleMR foot left w and wo IV contrastImagingRoutine Ulcer of foot with muscle involvement without evidence of necrosis, unspecified laterality (HCC) Ordered: 5Creatinine, SerumLabRoutine Ulcer of foot with muscle involvement without evidence of necrosis, unspecified laterality (HCC) Expected: 02/28/2025 (Approximate), Expires: 02/28/2026documented as of this encounter Procedures Procedure NamePriorityDate/TimeAssociated DiagnosisCommentsXR FOOT 3+ VIEWS LEFT Uphrwib6102/28/2025 4:10 PM EDT Ulcer of foot with muscle involvement without evidence of necrosis, unspecified laterality (HCC) documented in this encounter Results * XR foot 3+ views left (02/28/2025 4:10 PM EDT)Anatomical RegionLaterality ModalityLower Extremities, FootLeftRadiographic ImagingSpecimen (Source) Anatomical Location / LateralityCollection Method / VolumeCollection Time Received Time Narrative 02/28/2025 5:11 PM EDT Imaging Result: 3 views foot: AP, MO, and lateral of the left foot were taken and show no acute osseous abnormalities of 5th metatarsal head or base of 5th proximal phalanx. These views were compared to the same views taken on 02/09/25. ?? There are mild degenerative changes noted of the 1st MTPJ and tn joint. ?? Hypertrophic fibular sesamoid present. Authorizing ProviderResult TypeResult StatusJesscatarino Hammond DPMIMG XR PROCEDURESFinal Result documented in this encounter Visit Diagnoses Diagnosis Infection of skin and subcutaneous tissue- Primary Unspecified local infection of skin and subcutaneous tissue Ulcer of foot with muscle involvement without evidence of necrosis, unspecified laterality (HCC) Type II or unspecified type diabetes mellitus with neurological manifestations, not stated as uncontrolled(250.60) (HCC) Type II or unspecified type diabetes mellitus with neurological manifestations, not stated as uncontrolled Status post amputation of lesser toe of right foot ([facility]) documented in this encounter Care Teams Team MemberRelationshipSpecialtyStart DateEnd Date Jose Garner DO [address] [place] [phone] PCP - GeneralInternal Medicine09/22/24documented as of this encounter
--- OUTSIDE RECORDS SUMMARY | 2025-02-28 15:15 | XMS_ITS | Encounter Summary ---
Author Organization [facility] Address [address] [place] [address] Care Team Providers Care Meatcutter Name Role Phone Jose Garner DO Primary Care Provider [phone] Encounter Details DateTypeDepartmentCare Team (Latest Contact Info)Wuyoowkhies51/28/2025 4:15 PM EDTAncillary Procedure [facility] [address] [facility] [place] [address] Social History Tobacco UseTypesPacks/DayYears UsedDateSmoking Tobacco: Every DayCigarettes0.515 Smokeless Tobacco: Never Comments:Smoked 1-2 pks a da y for [address] back 1/2 pk orless a day Alcohol UseStandard Drinks/WeekCommentsNot Currently6 (1 standard drink = 0.6 oz pure alcohol)Sex and Gender InformationValueDate RecordedSex Assigned at Not on fileLegal UqhFmdv6112/30/2022 2:14 PM EDTGender IdentityNot on fileSexual OrientationNot on filedocumented as of this encounter Plan of Treatment DateTypeDepartmentCare Team (Latest Contact Info)Vvfmymfcvhc65/06/2025 10:30 AM ESTAncillary Procedure [facility] [address] [place] [address] 03/09/2025 4:00 PM ESTOffice Visit [facility] [address] [place] [address] Afsaneh Hammond W, DPM [address] [place] [address] 03/21/2025 1:15 PM ESTOffice Visit [facility] [address] [place] [address] Afsaneh Hammond, DPM [address] [place], [place] [id number] 05/30/2025 4:00 PM ESTProcedure Visit [facility] [address] [place] [address] Afsaneh Hammond, ASA [address] [place], [place] [id number] documented as of this encounter Procedures Procedure NamePriorityDate/TimeAssociated DiagnosisCommentsXR FOOT 3+ VIEWS LEFT Qidgwdm7402/28/2025 4:10 PM EDT Ulcer of foot with [...] Hypertrophic fibular sesamoid present. Authorizing ProviderResult TypeResult StatusJejohnathon Hammond DPMIMG XR PROCEDURESFinal Result documented in this encounter Visit Diagnoses Not on filedocumented in this encounter Care Teams Team MemberRelationshipSpecialtyStart DateEnd Date Jose Garner DO [address] [place] [address] PCP - GeneralInternal Medicine09/22/24documented as of this encounter
--- OUTSIDE RECORDS SUMMARY | 2025-03-06 07:06 | XMS_ITS | Continuity of Care Document ---
Author Organization [facility] Address [address] [place] [address] Phone Care Team Providers Care Director Of Environmental Services Name Role Phone Radha Bruno APRN Primary Care Provider Radha Bruno APRN Attending Provider Brayan Pennington DO Attending Provider Care Teams Patient Care Team Team Status: Active Member Role/Relationship Status Dates Radha Bruno APRN TECHNICAL SERVICES LIBRARIAN-C Primary Care Provider Active Visit Care Team Team Status: Inactive Member Role/Relationship Status Dates Radha Bruno APRN TECHNICAL SERVICES LIBRARIAN-C Primary Care Provider Active Start: December 12, 2024 End: December 12, 2024Radha Bruno APRN TECHNICAL SERVICES LIBRARIAN-CAttending ProviderActive Start: December 12, 2024 End: December 12, 2024 Visit Care Team Team Status: Inactive Member Role/Relationship Status Dates Radha Bruno APRN TECHNICAL SERVICES LIBRARIAN-C Primary Care Provider Active Start: February End: February 27, 2025Brayan Pennington DOAttending ProviderActiveStart: February 27, 2025 End: February 27, 2025 Patient Care Team Team Status: Inactive Member Role/Relationship Status Dates Radha Bruno APRN TECHNICAL SERVICES LIBRARIAN-C Primary Care Provider Active Start: March End: March 06, 2025Radha Bruno APRN TECHNICAL SERVICES LIBRARIAN-CAttending ProviderActive Start: March 06, 2025 End: March 06, 2025 Chief Complaint and Reason for Visit Chief Complaint Admit Date 3 mo f/u December 12, 2024 2: 01pm [facility] CONSULT RADHA BRUNO RT ELBOW PAIN WX February 27, 2025 10:44am Swollen leg, Painful leg March 06, 2 025 11:37am Reason for Visit Admit Date Anxiety December 12, 2024 2: 01pm Arthritis [...] elbow pain February 27, 2025 1 0:44am Pain of right lower extremity March 062024 11:37am Right calf pain March 06, 2025 1 1:37am 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 March 06, 2025 11:37am Allergies, Adverse Reactions, Alerts Allergen Type Severity Reaction Last Updated Verified Status cephalexin Allergy Unknown Unknown Reaction March 06, 2025 11:40am Yes Active doxycycline Adverse Reaction Unknown Diarrhea Novembe r 2024 11:40am Yes Active Social History Smoking Status Status Start Date End Date Date of Observa tion Smokes tobacco daily (finding) March 06, 2025 9:02am Observation Status Observation Response Date of Response Legal Sex Male (finding) [facility] Family History Relationship Condition Age at Onset Recorded Date/T carlos mother Malignant neoplasm of ovary Unknown fatherDeceasedUnknownmotherDeceasedUnknown Problems Active Problems Problem Diagnosis/Recorded Date Onset Date Status C omments Nicotine dependence September 11, 2024 4:43pm Unknown Activ e 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May 2024 4:45pmUnknownActiveHistory of coronary artery bypass graft x 1May 2024 7:51amUnknownActiveMarijuana abuseApril 2021 4:44pmUnknownActiveType 2 diabetes mellitusMay 2024 4:45pmUnknownActiveAnxietyJune 2024 12:15pmUnknownActiveRight calf pain March 06, 2025 11:56amUnknownActiveDysphagiaApril 2024 8:01amUnknown ActiveSeasonal allergiesAugust 2024 1:49pmUnknownActiveHyperlipidemiaMay 2024 4:43pmUnknownActivePain of right lower extremityNov2024 11:56amUnknownActivePre-op evaluationAugust 2024 2:04pmUnknownActive Chronic back painMay 2024 4:46pmUnknownActiveRight elbow painAugust 2024 10:43amUnknownActiveEncounter for screening for lung cancerMay 2024 4:43pmUnknownActiveHistory of aortic valve replacementMa2024 4:44pm UnknownActiveGERD (gastroesophageal reflux disease)September 12, 2024 7:56amUnknown ActiveHypertensionJuly 2021 12:45pmUnknownActiveCVA (cerebral vascular accident)November 25, 2021 12:44pmUnknownActiveArthritis of right elbowAugust 2024 1:56pmUnknownActiveInactive/Resolved Problems Problem Diagnosis/Recorded Date Onset Date Status C omments Stroke of right basal ganglia August 13, 2021 1:58pm Unknown Resolved Problem List clean-up per request of Phys. EHR Cmte Impaired mobility and activities of daily living August 13, 2021 8:54am Unknown Resolved Problem List clean-up per request of Phys. EHR Cmte Alcohol abuse August 12, 2021 4:43pm Unknown Resolved Problem List clean-up per request of Phys. EHR Cmte Chronic pain August 13, 2021 8:55am Unknown Resolved Problem List clean-up per request of Phys. EHR Cmte Dysphagia August 13, 2021 8:53am Unknown Resolved P roblem List clean-up per request of Phys. EHR Cmte Left-sided neglect August 13, 2021 8:54am Unknown Reso lved Problem List clean-up per request of Phys. EHR Cmte Aortic valve replaced August 12, 2021 4:42pm Unknown R esolved Problem List clean-up per request of Phys. EHR Cmte Anticoagulated on Coumadin August 13, 2021 8:54am Unknown Resolved Problem List clean-up per request of Phys. EHR Cmte Left hemiplegia August 13, 2021 8:56am Unknown Resolve d Problem List clean-up per request of Phys. EHR Cmte Hypertension August 13, 2021 8:54am Unknown Resolved Problem List clean-up per request of Phys. EHR Cmte Smoker August 12, 2021 4:43pm Unknown Resolved P roblem List clean-up per request of Phys. EHR Cmte Medications Medication Status Dose Units Route Directions Qty Days Refills S tart Date Stop Date End Date Reason(s) Instructions Adherence Bupropion Hcl (Wellbutrin Sr) 150 mg tablet sustained-release 12 hr Discontinued 150 MG PO Daily 90 90 1 October 10, 2024 11:00pm December 12, 2024 1:33pmAnxiety Anxiety disorder, unspecifiedOndansetron 4 mg tablet,uzuqjzloboeuhwJmokyv4PILY Q8H as needed for nausea and wvbhvdhe56862Gzfsmc 2024 11:00pmComplies with drug therapyAtorvastatin 40 mg qttuksVkfvdu08DFYVWumfu lyvafvn73978Funnitbjp 17th, 2025 12:18pmHyperlipidemia Hyperlipidemia, unspecifiedComplies with drug therapyTizanidine 4 mg tablet Fxfthbkgsuzz3QVODOmtapxf16471Tlqqubotp 17th, 2025 12:19pmNovember 2024 12:05pmChronic back pain Dorsalgia, unspecified Other chronic painBupropion Hcl (Wellbutrin Sr) 150 mg tablet sustained-release 12 ztNxfoatoyyrvv097BVHEYkbbj80063Rbkzfceyk 2024 7:10amOctober 2024 12:31pmAnxiety Anxiety disorder, unspecifiedBupropion Hcl 150 mg tablet sustained-release 12 hr Discontinued0.ROUTE.DWASFTA5211Monbavr 2024 12:31pmNovember 2024 11:45amAnxiety Anxiety disorder, unspecifiedTAKE 2 TABLETS BY MOUTH DAILYAmlodipine 2.5 mg tabletDiscontinued2.5MGPODailyJuly 2021 11:00pmAugust 2024 1:50pm Escitalopram Oxalate 10 mg ydealtWyvedboseqct00NWGCPipsaFqvf 2021 11:00pm September 07, 2024 1:43pmEnoxaparin (Lovenox) 100 mg/mL DqcnvxlOeemzeihimwr487PE SDBANEM50WTilv 2021 11:00pmMay 2024 1:43pmWarfarin 7.5 mg Tablet Givsbqnppwrx6MFLHExw as DirectedApril 2021 11:00pmApril 2021 9:16am 7.5MG takes every Thursday, 5mg PO every other day (////Thu/Thu) Metoprolol Tartrate 100 mg GoiefyOyiyxj219YOKBVplri wbxxg39234Icgvv 2021 11:00pmComplies with drug therapyTizanidine 4 mg KxptqzOavrbdlzkyfe4YRSNGpwywei 57871Xsnko 2021 11:00pmSeptember 2024 12:19pmLisinopril 20 mg Tablet Qzdhcs45UVKDVubmk57708Ledic 14th, 2022 11:00pmComplies with drug therapyThiamine Hcl (Vitamin B1) 100 mg LuaoepUiuwymnerwmy055WRKZJrlzm13403Wkimz 14th, 2022 11:00pmJuly 2021 12:42pmWarfarin (Jantoven) 5 mg YvwethOteghk3OAVIPiesk48 Fina 2021 11:00pmComplies with drug therapyOmeprazole 20 mg Capsule,Delayed Release(Dr/Ec)Uwknxflcvqzd96KTLLOrwhw clemz51211Oxsuy 2021 11:00pmJuly 2021 12:42pmAtorvastatin 40 mg ReilbxAcltxrimuvfw54MCZRKnjev mzezjqe66099Tgxmj 2021 11:00pmSeptember 2024 12:19pmHydrocodone- Acetaminophen 5-325 mg GhmyarHtkfzjylnamm3QSDITP9P as needed for Ypjf22Hboba ugust 2024 1:23pmAspirin (Children's Aspirin) 81 mg Tablet,NxqpxlxpXdnpfe11JRVJNkxew09479Rhczr 2021 11:00pmComplies with drug therapyFolic Acid 1 mg McguewUucxnjozfucp5LVGLInqec29610Ruapm 2021 11:00pm November 25, 2021 12:42pmBacitracin-Polymyxin B 500-10,000 unit/gram Ointment Mtomvrqqfotr3MBTXUYWQQ-TWRBPH2K as needed for Dry Eye(S)01816Pdjuu 2021 11:00pmAugust 2024 1:22pmFexofenadine 180 mg tabletDiscontinuedMGPOAugust 2024 11:00pmAugust 2024 1:50pmGlimepiride 2 mg tabletDiscontinuedMGPO December 04, 2024 11:00pmAugust 2024 2:07pmAmoxicillin-Pot Clavulanate 875- 125 mg tabletDiscontinuedTABPOAugu2024 11:00pmAugust 2024 1:21pm Benzonatate 200 mg huuowglXwafhwgahgkj340UFIOZjzny times dailySeptember 06, 2024 11:00pmMa2024 2:41pmBupropion Hcl 150 mg tablet sustained-release 12 hr Ylmvbipcqmxb853CJCOEynwf dailyy 2024 11:00pmMay 2024 2:24pm Clopidogrel 75 mg gmsafoSiipkm92VLODItdagQii 6th, 2025 11:00pmComplies with drug therapyDapagliflozin Propanediol 10 mg oxotqaGpowsy82HUWJPiwftHon 6th, 2025 11:00pmComplies with drug therapyMetformin 500 mg fcwyyrGwxxhrswstht571WRECLmakq dailyMa2024 11:00pmAugust 2024 1:50pmNicotine 21 mg/24 hr patch 24 sgqgQlcbspghjjbr3LRNCUHSSTPTXAFLQmjvjZrx 6th, 2025 11:00pmAugust 2024 1:23pmPantoprazole 40 mg tablet,delayed release (DR/EC)Adaqkq36YPAJCqqbcEbt 2024 11:00pmComplies with drug therapyUrea 40 % mbgzzOhdqywebqdtr0MSTQVBZKDYDMU Twice dailyMa2024 11:00pmAugust 2024 1:23pmBenzonatate 200 mg vhnpcexOmteydpeugua494ZBICPvwmq times sbdxq654992Bev 7th, 2025 2:41pmNov2024 11:40amDysphagia Dysphagia, unspecifiedOmadacycline (Nuzyra) 150 mg leaqziDzccgz068GUNLUfldm dailyAugerald champion regional medical centert 2024 11:00pmComplies with drug therapyBupropion Hcl (Wellbutrin Sr) 150 mg tablet sustained-release 12 ygVtmhcvcbolor555FZMPEeele25 300Aug[facility]2024 1:32pmSeptember 2024 7:10amAnxiety Anxiety disorder, unspecifiedFexofenadine 180 mg nykeevNkmcoc000PHWDRoper30443 December 12, 2024 1:48pmSeasonal allergies Other seasonal allergic rhinitisComplies with drug therapyAmlodipine 2.5 mg tabletActive2.0KGXRAfznj74960Pmpbob 11th, 2025 1:49pmHypertension Essential (primary) hypertensionComplies with drug therapyMetformin 500 mg cnkrxrCvmpjo7804YZCSUxrqx yfyeh462934Hnkuyu 11th, 2025 1:50pmType 2 diabetes mellitus Type 2 diabetes mellitus without complicationsComplies with drug therapy Spironolactone 25 mg iqspwlCaonfj27TPFWPbhssZzkvhfuj 3rd, 2025 12:00amComplies with drug therapyBupropion Hcl 150 mg tablet sustained-release 12 otRdfybj847GF PODailyNovember 2024 11:44amAnxiety Anxiety disorder, unspecifiedUnknownTizanidine 4 mg fitqhcAvkfkv8SCSILqnqv 8 hours as needed for muscle fbtzraocqd764863Wgbjewfq 3rd, 2025 12:05pmChronic back pain Dorsalgia, unspecified Other chronic painComplies with drug therapy Immunizations Immunization Event Date Not Given Reason Dose Number Steam[employer] Worker Lot Number Reason(s) Given Vaccine Information Statement (VIS) Detail Administration Location Fluzone TIV High-Dose 65YR+ February 28, 2025 right deltoid Relevant Diagnostic Tests and/or Laboratory Data Laboratory Results Test Collection Date/Time Result Date/Time Result Interpretation Reference Range Result Comment Performing Site Vitamin B12 Level February 27, 2025 11:00am February 022024 11:00am 379 pg/mL [id number] at: [facility] [id number] Director: Shaggy Burris PhD, Phone: [phone] Vital Signs Vital Reading Result Reference Range Collection Date/Time Height 68 [in_i] December 12, 2024 1:83udMfokqf431.32 kgAugust 2024 1:18pmBody Temperature 97.8 [degF]97.6-99.0August 2024 1:18pmHeart Rate72 /vij53-740Knurnk 2024 1:18pmOxygen saturation by Pulse mfplybjd94 %95-100August 2024 1:18pm BP Jdyqxrrl056 mm[Hg]100-140Augus2024 1:18pmBP Lisiagujl60 mm[Hg]60-100 December 12, 2024 1:18pmBMI (Body Mass Index)34.9 kg/s5Aytcvp 2024 1:18pm Temfuj03 [in_i]February 27, 2025 10:83fmHvbiky926.32 kgOctober 2024 10:10amBMI (Body Mass Index)34.9 kg/b8Bvaqiqa 2024 10:70wiVgmucp84 [in_i] March 06, 2025 11:69raLxkhjp477.96 kgNov2024 11:40amHeart Rate82 /jex64-018MxilkqwhMarch 06, 2025 11:40amRespiratory rate14 /qhq63-91AlpiabldMarch 06, 2025 11:40amOxygen saturation by Pulse hzbiplpb45 %95-100March 06, 2025 11:40amBP Pvbjyqoj354 mm[Hg]100-140Nov2024 11:40amBP Vaxlnkvvp88 mm[Hg]60-100Nov2024 11:40amBMI (Body Mass Index)34.4 kg/u3LstvgqjxMarch 06, 2025 11:40am Advance Directives Advance Directive Response Recorded Date/ Time Advance Directives No March 06, 2025 9:02am Insurance Providers Guarantor Jorge Ojeda Address [address] [place] [address] [place] [id number] Info.Home Phone: Coverage Status Update:2024 Payer Group Member ID Coverage Type Subscriber Relationship to Subscriber Effective Date Expiration Date [facility] Medicaid [id number] Barger , D Id: [id number] [address] [place] [address] [address] [facility] [address] Home Phone: Email: [email or web address] Unknown Id: [id number] Barger , D Id: [id number] [address] [place] [address] [address] [facility] [address] Home Phone: Email: [email or web address] Encounter Location(s) Arrival/Admit Date Discharge/Departure Date Discharge/Departure Disposition Provider(s) Departed Physician/ Provider Office Visit -[facility] December 12, 2024 2:01pm December 12, 2024 3:02pm Discharged to home care or self care (routine discharge) Radha Bruno APRN CNP Departed Physician/ Provider Office Visit -[facility] February 27, 2025 10:44am February 27, 2025 11:38am Discharged to home care or self care (routine discharge) Brayan Pennington DO Departed Physician/ Provider Office Visit -[facility] March 06, 2025 11:37am March 06, 2025 12:05pm Discharged to home care or self care (routine discharge) Radha Bruno APRN CNP Recent Diagnosis Onset Date Admit Date Anxiety Unknown December 12 2:01pm Arthritis of [...] 27, 2025 10:44am Right elbow pain Unknown February 27, 2 025 10:44am Pain of right lower extremity Unknown No vem2024 11:37am Right calf pain Unknown March 06 11:37am 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 Unknown March 06, 2025 11:37am Assessments Diagnosis Onset Date Resolution Status Admit Date Anxiety acuteAugust 2024 2:01pmArthritis of right elbowacuteAugus2024 2:01pmCVA (cerebral vascular accident)acuteAugus2024 2:01pmDysphagia acuteAugust 2024 2:01pmGERD (gastroesophageal reflux disease)acuteAugust 2024 2:01pmHistory of aortic valve replacementacuteAugus2024 2:01pmHistory of coronary artery bypass graft x 1acuteAugust 2024 2:01pm HyperlipidemiaacuteAugust 2024 2:01pmHypertensionacuteAugust 2024 2:01pmMarijuana abuseacuteAugus2024 2:01pmNicotine dependenceacuteAugus2024 2:01pmPre-op evaluationacuteAugust 2024 2:01pmRight elbow pain acuteAugust 2024 2:01pmSeasonal allergiesacuteAugust 2024 2:01pmType 2 diabetes mellitusacuteAugust 2024 2:01pm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acuteAugust 2024 2:01pmArthritis of right elbowacuteOctober 2024 10:44amRight elbow painacuteOctober 2024 10:44amPain of right lower extremityacuteNovember 2024 11:37amRight calf painacuteNovember 2024 11:37am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acuteNovember 2024 11:37am Plan of Treatment Author Brayan Pennington [facility] 2024 10:47amEd presents with right elbow mechanical locking. At this juncture we have discussed the findings and diagnosis as well as personally reviewed appropriate imaging and performed interpretation of related testing and examination with the patient in office today. Prior medical notes from Radha Bruno APRN, TECHNICAL SERVICES LIBRARIAN-C and history have been reviewed. Based on his complaints I feel that he might have a loose body in the joint. This is not identified on x-ray today. Discussed MRI to evaluate for loose body. Will plan to order this and patient can have done at convenience. Will await results and call patient with further plans, could be candidate for elbow arthroscopy if loose body is identified The patient has been involved in our cooperative treatment plan and agrees to move forward with treatment at this time. Patient is not improving as expected with time and conservative treatment. An MRI will be necessary to assess for an injury that could require surgical treatment. Patient given MRI information sheet to be done at [facility]. Patient is to follow up after MRI. Note scribed by JOSTIN Crawford, reviewed and amended by myself Brayan Pennington D.O. Author Radha Bruno [facility] 2024 7:28pm Advised patient to continue using Malou, allergy [...] Started on Victoza per medication management at [facility] Prior to your visit today we reviewed [...] Following with Dr. Hammond -- podiatry in [place]. He is scheduled for amputation of right [...] monitor. Follows with the Coumadin clinic at [facility] for management Follows with Cardiology- Reviewed most [...] Tests Test Name Ordered Date Scheduled Date MR elbow RT wo con February 27, 2025 10:38am US venous duplex LE RTNov2024 11:57am Future Visits Future appointment information is unavailable Future Procedures Procedure Name Ordered Date Scheduled Date Disability Placard March 06, 2025 12:02pm Future Medications Future medication information is unavailable Patient Instructions Patient instructions are unavailable
--- OUTSIDE RECORDS SUMMARY | 2025-03-06 12:28 | XMS_ITS | Clinical Summary ---
Author Organization [facility] Address [address] [place] [address] Care Team Providers Care Ambulance Driver Paramedic Name Role Phone Jose Garner DO Primary Care Provider [phone] Allergies Active AllergyReactionsCriticalityNoted DateCommentsCephalexinHivesHigh 02/16/2019ClindamycinGI ugjrxznfqyr19/03/3745TjvncsbrayhQdohyjhz35/25/2022 Medications MedicationSigDispense QuantityRefillsLast FilledStart DateEnd DateStatus amLODIPine [...] every 6 (six) hours if needed for kolivldb70/08/2024ctive clopidogrel (Plavix) 75 MG tablet Take 75 mg by mouth Daily05/13/2023ctive Continuous Blood Gluc Aging Room Hand (Dexcom G7 Aging Room Hand) device 07/31/2023ctive Continuous Blood Gluc Sensor (Dexcom G7 Sensor) misc 07/29/2023ctive Docusate Sodium (DSS) 100 MG capsule Take 100 mg by mouth in the morning and 100 mg in the evening.Active hydrOXYzine HCl (Atarax) 25 MG tablet Take 25 mg by mouth in the morning.08/07/2023ctive metFORMIN (Glucophage) 500 MG tablet Take 250 mg by mouthActive Wound Dressings ([facility] wound/burn) gel Indications:Ulcer of right foot with fat layer exposed (HCC)Apply 1 application topically Daily 44 mL ctive Liraglutide (VICTOZA SC) Inject under the skinActive omadacycline (Nuzyra) 150 MG tablet tablet Indications:Ulcer of foot with muscle involvement without evidence of necrosis, unspecified laterality (HCC),Infection of skin and subcutaneous tissueTake 3 tablets on day 1 and day 2, then take 2 tablets daily for days 3-14 34 tablet 5Active Active Problems ProblemNoted DateDiagnosed IvkiLmuszkrjzabqkb25/02/2024Ischemic psrsuy8309/03/2023 Essential ufvhlnlnsdzy31/02/2024lcohol abuse09/03/2023Unspecified atrial ynnhjttwzddj99/02/2024aytime bjjrlxkvlwzmwwo88/02/2024OSA (obstructive sleep apnea)09/03/2023 Encounters DateTypeDepartmentCare NlxhWkbxgclsqkn06/28/2025 4:15 PM EDTAncillary Procedure [facility] [address] [place] [address] 02/28/2025 3:45 PM EDTOffice Visit [facility] [address] [place] [address] Afsaneh Hammond, DPFransisco Infection of skin and subcutaneous tissue (Primary Dx); Ulcer of foot with muscle involvement without evidence of necrosis, unspecified laterality (HCC); Type II or unspecified type diabetes mellitus with neurological manifestations, not stated as uncontrolled(250.60) ([facility]); Status post amputation of lesser toe of right foot ([facility]-HCC)02/28/2025amboo flowsheet [facility] [address] [place] [address] Afsaneh Hammond DPM 02/28/20255281Bupaka91/09/2025 5:40 PM EDTAncillary Procedure [facility] [address] [place] [address] 02/09/2025 4:00 PM EDTOffice Visit [facility] [address] [place] [address] Afsaneh Hammond, DPFransisco Ulcer of left foot with fat layer exposed (HCC) (Primary Dx); Status post amputation of lesser toe of right foot ([facility]-HCC); Type II or unspecified type diabetes mellitus with neurological manifestations, not stated as uncontrolled(250.60) ([facility])02/09/2025amb flowsheet [facility] [address] [place] [address] Afsaneh Hammond, DPM 02/09/20258282Ewimli89/08/5668Nkbydn41/25/2025 3:45 PM EDTOffice Visit [facility] [address] [place] [address] Afsaneh Hammond, DPM Status post amputation of lesser toe of right foot ([facility]HS-HCC) (Primary Dx); Type II or unspecified type diabetes mellitus with neurological manifestations, not stated as uncontrolled(250.60) ([facility]); Ulcer of left foot with fat layer exposed (HCC); Emejjkeysmjxu86/25/6074Sdrkza51/11/2025 3:45 PM EDTOffice Visit [facility] [address] [place] [address] Afsaneh Hammond, DPM Dehiscence of amputation stump of right lower extremity (HCC) (Primary Dx); Status post amputation of lesser toe of right foot ([facility]); Type II or unspecified type diabetes mellitus with neurological manifestations, not stated as uncontrolled(250.60) ([facility])01/12/2025amb flowsheet [facility] [address] [place] [address] Afsaneh Hammond, DPM 01/12/20251073Dtmcwf97/10/5427Pjbnvj49/04/2025 4:00 PM EDTOffice Visit [facility] [address] [place] [address] Afsaneh Hammond DPM Status post amputation of lesser toe of right foot (HHS-HCC) (Primary Dx); Dehiscence of amputation stump of right lower extremity (HCC); Type II or unspecified type diabetes mellitus with neurological manifestations, not stated as uncontrolled(250.60) (HCC); Ulcer of left foot with fat layer exposed (HCC)01/05/2025amb flowsheet [facility] [address] [place] [address] Afsaneh Hammond DPM 01/05/20257004Ixzzki24/03/9638Ojypgp28/02/2641Gkjwmp18/28/2025 9:00 AM EDTOffice Visit [facility] [address] [place] [address] Afsaneh Hammond DPFransisco Cellulitis of right foot (Primary Dx); Amputation of fifth toe of right foot; Dehiscence of amputation stump of right lower extremity (HCC); 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); Infection of skin12/29/2024[facility] flowsheet [facility] [address] [place] [address] Afsaneh Hammond DPM 12/29/20240842Udhrxl66/27/7909Vhqqyl86/21/2025 5:20 PM EDTAncillary Procedure [facility] [address] [place] [address] 12/22/2024 4:00 PM EDTOffice Visit [facility] [address] [address] Afsaneh Hammond DPM Other acute osteomyelitis of right foot (HCC) (Primary Dx); 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); Type II or unspecified type diabetes mellitus with neurological manifestations, not stated as uncontrolled(250.60) (HCC); Ulcer of left foot with fat layer exposed (HCC); Status post amputation of lesser toe of right foot (HHS-HCC)12/22/2024amboo flowsheet [facility] [address] [place] [address] Afsaneh Hammond, DPM 12/22/20242425Xfqmip26/20/4634Aylfvk86/08/2025Telephone [facility] [address] [place] [address] Afsaneh Hammond, DPM 12/07/2024Telephone [facility] [address] [facility] [place] [address] Afsaneh Hammond, DPFransisco Advice Only (Driving After Surgery)12/06/2024 3:15 PM EDTOffice Visit [facility] [address] [place] [address] Afsaneh Hammond, DPM Other acute osteomyelitis of right foot ([facility]) (Primary Dx); Ulcer of right foot with necrosis of bone ([facility]); Cellulitis of right foot; Infection of skin12/06/2024amb flowsheet [facility] [address] [place] [address] Afsaneh Hammond, DPM 12/06/20243334Iweuhp12/04/2025Travelfrom Last 3 Months Immunizations ImmunizationAdministration DatesNext DuePfizer [...] InformationValueDate RecordedSex Assigned at Not on fileLegal XxfSvpn1612/30/2022 2:14 PM EDTGender IdentityNot on fileSexual OrientationNot on file Last Filed Vital Signs Vital SignReadingTime TakenCommentsBlood Pjmahciv495/8309/03/2023 3:05 PM EDT Elsfn165809/03/2023 3:05 PM JONCfyatuwawpn56.7 ??C (98 ??F)02/28/2025 3:52 PM EDT Respiratory Rate--Oxygen Saturation--Inhaled Oxygen Concentration--Xgbrna785 kg (226 lb)02/28/2025 3:52 PM HPRTxejiv416.8 cm (5' 10 )02/28/2025 3:52 PM EDTBody Mass Index32.431 3:52 PM EDT Plan of Treatment DateTypeDepartmentCare Team (Latest Contact Info)Oeoekkhlahp31/06/2025 10:30 AM ESTAncillary Procedure [facility] [address] [place] [address] 03/09/2025 4:00 PM ESTOffice Visit [facility] [address] [place] [address] Afsaneh Hammond DPM [address] [place] [address] 03/21/2025 1:15 PM ESTOffice Visit [facility] [address] [place] [address] Afsaneh Hammond DPM [address] [place] [address] 05/30/2025 4:00 PM ESTProcedure Visit [facility] [address] [place] [address] Afsaneh Hammond DPM [address] [place] [address] Health MaintenanceDue DateLast DoneCommentsCT Jtkfortvbkap53/15/1962FIT 1961 6873Oolgnxfwlwepn09/15/1962FIT-DNA/09/20182722MKIH67/31/2023 03/03/2022OVID-19 Vaccine ( season)501/09/2021, 10/23/2020, 10/02/20201405Elmekockwwf33Colorectal Cancer Wphufzvur97/04/2029 Influenza HdevskpIyrvyfxfu63/28/2025Pneumococcal Vaccine: Pediatrics (0 to 5 Years) and At-Risk Patients (6 to 64 Years)Aged OutNo longer eligible based on patient's age to complete this topic Procedures Procedure NamePriorityDate/TimeAssociated DiagnosisCommentsXR FOOT 3+ VIEWS LEFT Ctipxmd3602/28/2025 4:10 PM EDT Ulcer of foot with muscle involvement without evidence of necrosis, unspecified laterality (HCC) XR FOOT 3+ VIEWS LIOGFhgolbg95/09/2025 5:38 PM EDT Ulcer of left foot with fat layer exposed (HCC) XR FOOT 3+ VIEWS ATEYDUxaosgk41/21/2025 5:18 PM EDT Status post amputation of lesser toe of right foot ([facility]HS-HCC) BONE CULTURE ([place])Dgygcaq5212/16/2024 9:06 AM EDT CULTURE, ANAEROBIC BACTERIA W/GRAM NCNZEAjxykzn12/15/2025 9:06 AM EDT MR FOOT RIGHT W AND WO IV KVLWMRSG79/04/2025 1:28 PM EDT from Last 3 Months Results * XR foot 3+ views left (02/28/2025 4:10 PM EDT) Only the most recent of2 resultswithin the time period is included. Anatomical RegionLateralityModalityLower Extremities, FootLeftRadiographic ImagingSpecimen (Source)Anatomical Location / LateralityCollection Method / VolumeCollection TimeReceived Time Narrative 02/28/2025 5:11 PM EDT Imaging [...] Acute osteomyelitis of right ankle or foot ([facility]) [M86.171] Ulcer of toe of right foot, with necrosis of bone ([facility]) [L97.514] ?? PERFORMED AT [facility] [address],[place] [address] Specimen (Source)Anatomical Location / LateralityCollection Method / Volume Collection TimeReceived Time12/16/2024 9:06 AM EDT12/16/2024 12:36 PM EDT Narrative Authorizing ProviderResult TypeResult StatusJesscatarino Hammond DPMLAB BLOOD ORDERABLESFinal ResultPerforming OrganizationAddressCity/State/ZIP CodePhone Number [place] * Anaerobic culture (12/16/2024 9:06 AM EDT)ComponentValueRef RangeTest Method Analysis TimePerformed AtPathologist SignatureUrine CultureSEE RESULTS BELOW [facility] SOUTH CAMPUSEDICReading Hospitalmment: SPECIMEN SOURCE ?Bone ? Toe, Right CULTURE RESULTS ?NO ANAEROBIC ORGANISMS ISOLATED REPORT STATUS ?FINAL 12/21/2024 Pre-op diagnosis: Acute osteomyelitis of right ankle or foot ([facility]) [M86.171] Ulcer of toe of right foot, with necrosis of bone ([facility]) [L97.514] ?? PERFORMED AT [facility] [address],[place] [address] Specimen (Source)Anatomical Location / LateralityCollection Method / Volume Collection TimeReceived Time12/16/2024 9:06 AM EDT12/16/2024 12:36 PM EDT Narrative Authorizing ProviderResult TypeResult StatusJejohnathon Hammond DPMLAB MICROBIOLOGY - GENERAL ORDERABLESFinal ResultPerforming OrganizationAddressCity/State/ZIP CodePhone Number [facility] * MR foot right w and wo IV contrast (12/05/2024 1:28 PM EDT)Anatomical Region LateralityModalityLower Extremities, FootRightMagnetic ResonanceSpecimen (Source)Anatomical Location / LateralityCollection Method / VolumeCollection TimeReceived Time12/05/2024 1:28 PM EDT Narrative 12/05/2024 1:27 PM EDT THIS EXAM WAS PERFORMED AT [facility] MRI right foot with and [...] - 12/05/2024 THIS EXAM WAS PERFORMED AT [facility] right foot with and without contrast HISTORY: [...] 12/05/2024 1:27 PM Authorizing ProviderResult TypeResult StatusJejohnathon Aundrea Hammond DPMIMG MRI PROCEDURESFinal Result from Last 3 Months Insurance Care Teams Team MemberRelationshipSpecialtyStart DateEnd Date Jose Garner DO [address] [place] [address] PCP - GeneralInternal Medicine09/22/24
--- OUTSIDE RECORDS SUMMARY | 2025-03-06 12:28 | XMS_ITS | Encounter Summary ---
Author Organization [facility] Address [address] [place] [address] Care Team Providers Care Director Commercial Sales Name Role Phone Jose Garner DO Primary Care Provider Encounter Details DateTypeDepartmentCare Team (Latest Contact Info)Vaexjztliej46/28/2025Travel Social History Tobacco UseTypesPacks/DayYears UsedDateSmoking Tobacco: Every DayCigarettes0.515 Smokeless Tobacco: Never Comments:Smoked 1-2 pks a da y for [address]yrs have cut [address] back 1/2 pk orless a day Alcohol UseStandard Drinks/WeekCommentsNot Currently6 (1 standard drink = 0.6 oz pure alcohol)Sex and Gender InformationValueDate RecordedSex Assigned at Not on fileLegal ZjmTjzt6512/30/2022 2:14 PM EDTGender IdentityNot on fileSexual OrientationNot on filedocumented as of this encounter Plan of Treatment DateTypeDepartmentCare Team (Latest Contact Info)Radrpwmyosp97/06/2025 10:30 AM ESTAncillary Procedure [facility] [address] [place] [address] 03/09/2025 4:00 PM ESTOffice Visit [facility] [address] [place] [address] Afsaneh Hammond, DPM [address] [place], [place] [address] 03/21/2025 1:15 PM ESTOffice Visit [facility] [address] [place] [address] Afsaneh Hammond, DPM [address] [place], [place] [phone] 05/30/2025 4:00 PM ESTProcedure Visit [facility] [address] [place] [address] Afsaneh Hammond, DP [address] [place], [place] [address] documented as of this encounter Visit Diagnoses Not on filedocumented in this encounter Care Teams Team MemberRelationshipSpecialtyStart DateEnd Date Jose Garner DO [address] [place] [address] PCP - GeneralInternal Medicine09/22/24documented as of this encounter
--- OUTSIDE RECORDS SUMMARY | 2025-03-06 12:28 | XMS_ITS | Patient Health Record ---
Author Organization [facility] [place] Address [address] [place] [address] Care Team Providers Care Alterations Manager Name Role Phone Chino Harmon MD Primary Care Provider Unavail able Reason For Referral No Information Plan Of Treatment No Information Insurance Providers Payer Name Payer Address Payer Phone Subscriber Number Group Number Insured Name Patient Relationship to Insured Coverage Start Date Coverage End Date SELF PAY ON PATIENT DEMOGRAPHICS Carolynn Andreelf - patient is the saswexs1108/03/2011
--- OUTSIDE RECORDS SUMMARY | 2025-03-06 12:28 | XMS_ITS | Clinical Summary ---
Author Organization [facility] Address [address] [place] [address] Care Team Providers Care Grazing Examiner Name Role Phone Unavailable Primary Care Provider [...] morning and once before bed07/27/2023ctive Dexcom G4 gakona regional business manager (Dexcom G7 Intern Brand) misc Use to test glucose throughout the [...] venous catheter if needed each day.07/24/2023ctive HYDROcodone-acetaminophen ([place]) 5-325 mg tablet Take 1 tablet by [...] once in the morning and once before qcuspik8307/27/2023ctive metFORMIN XR (Glucophage-XR) 500 mg 24 hr [...] needed each day.07/24/2023ctive sodium chloride-Aloe vera gel ([place] Saline) gel topical gel Apply 1 Application [...] type 2 diabetes mellitus, with fat layer yeaozcl99/01/2024MSSA nqsjyuuktk30/20/ellulitis of right foot Siivowzsbpds54Hypoxialcohol abuse MS (altered mental status)Hypertension Left pafhhxxddl68Sepsis07/16/2023 08/11/2023Type II diabetes mellitus with neurological grvdhmwyvsubvx28/23/2024 08/11/2023therosclerosis of [place]zan[place] artery of oetwjxvls24 Tobacco useUlcer of right foot with necrosis of muscle Social History Tobacco UseTypesPacks/DayYears UsedDateSmoking Tobacco: Never AssessedUT Safety & EnvironmentAnswerDate RecordedFear of Current or Ex-PartnerNot on file 07/20/2023Emotionally AbusedNot on file07/20/2023hysically AbusedNot on file 07/20/2023Sexually AbusedNot on file07/20/2023hysically or Sexually AbusedNot on file07/20/2023Sex and Gender InformationValueDate RecordedSex Assigned at BirthNot on fileLegal YpiPxwy7807/20/2023 12:01 AM EDTGender IdentityNot on file Sexual OrientationNot on file Plan of Treatment Health MaintenanceDue DateLast DoneCommentsCT Bsuswkdkdrij53/15/1962Colonoscopy 2Colorectal Cancer Hynihhhfk98/15/1962Diabetes: Hemoglobin A1C 1961FIT-DNA1961FIT1961FOBT1961 7758Yqhwfqbuxpgqw29/15/1962 Diabetes: Retinopathy Elwfryqda60/15/1972Depression Yjzqmubex97/15/1974Diabetes: Urine Protein Mxgryggab03/15/1981Pneumococcal Vaccine: Pediatrics (0 to 5 Years) and [...]
--- OUTSIDE RECORDS SUMMARY | 2025-03-06 12:28 | XMS_ITS | Encounter Summary ---
Author Organization [facility] Address [address] [place] [address] Care Team Providers Care Groundskeeping Maintenance Worker Name Role Phone Jose Garner DO Primary Care Provider [phone] Encounter Details DateTypeDepartmentCare Team (Latest Contact Info)Wwtffumoajn26/28/2025amboo flowsheet [facility] [address] [place] [address] Afsaneh Hammond, DPM [address] [place] [address] Social History Tobacco UseTypesPacks/DayYears UsedDateSmoking Tobacco: Every DayCigarettes0.515 Smokeless Tobacco: Never Comments:Smoked 1-2 pks a da y for [address]yrs have [address] back 1/2 pk orless a day Alcohol UseStandard Drinks/WeekCommentsNot Currently6 (1 standard drink = 0.6 oz pure alcohol)Sex and Gender InformationValueDate RecordedSex Assigned at Not on fileLegal KdtHjxg6212/30/2022 2:14 PM EDTGender IdentityNot on fileSexual OrientationNot on filedocumented as of this encounter Plan of Treatment DateTypeDepartmentCare Team (Latest Contact Info)Dtrlvuvzbpl39/06/2025 10:30 AM ESTAncillary Procedure [facility] [address] [place] [address] 03/09/2025 4:00 PM ESTOffice Visit [facility] [address] [place] [address] Afsaneh Hammond, DPM [address] [place] [address] 03/21/2025 1:15 PM ESTOffice Visit [facility] [address] [place] [address] Afsaneh Hammond, DPM [address] [place], [place] [address] 05/30/2025 4:00 PM ESTProcedure Visit [facility] [address] [place] [address] Afsaneh Hammond, ASA [address] [place], [place] [address] documented as of this encounter Visit Diagnoses Not on filedocumented in this encounter Care Teams Team MemberRelationshipSpecialtyStart DateEnd Date Jose Garner DO [address] [place] [phone] PCP - GeneralInternal Medicine09/22/24documented as of this encounter
== END 2025-03-06 12:24 | disposition home or self-care (01) ==
PROVIDERS: Family Provider Family Medicine; PCP Nurse Practitioner Family; Visit Provider Nurse Practitioner Family
DX: M79.604 Pain in right leg (principal); M79.661 Pain in right lower leg
CPT/HCPCS: 93971

== ENCOUNTER 2025-03-16 14:22 | Outpatient (OUT) | payer MEDICAID, SELFPAY ==
--- OUTSIDE RECORDS SUMMARY | 2025-02-09 12:00 | XMS_ITS | Encounter Summary ---
Author Organization [facility] Droid system master [facility] tem Address [id number] [address] 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 Name Role Phone Nathalie Handley Primary Care Provid er Reason for Visit * ReasonCommentsDiabetes MellitusMTM Follow-up Visit * Auth/Cert (Routine)SpecialtyDiagnoses / ProceduresReferred By ContactReferred To Contact Referral IDStatusReasonStart DateExpiration DateVisits RequestedVisits [id number] Encounter Details DateTypeDepartmentCare Team (Latest Contact Info)Aiidryojofp07/09/2025 1:00 PM EDTClinical Support [facility] - Pharmacy Medication Management [address] [place] [address] Yusuf Fletcher MD [address] [place] [address], [address] [place] [address] Type II diabetes mellitus with neurological manifestations ([facility]) (Primary Dx) Social History Tobacco UseTypesPacks/DayYears UsedDateSmoking Tobacco: Every IlbSakdttueag481.9 Started: 1975Smokeless Tobacco: NeverAlcohol UseStandard Drinks/WeekCommentsYes2 (1 standard drink = 0.6 oz pure alcohol)history of alcohol abuseAHC Utilities AnswerDate RecordedIn the past 12 months has the electric, gas, oil, or water company threatened to shut off services in your home?No07/21/2023Social Connection and Isolation PanelAnswerDate RecordedIn a typical week, how many times do you talk on the phone with family, friends, or neighbors?Once a week 05/09/2022How often do you get together with friends or relatives?Once a week 05/09/2022How often do you attend taoism or alevism services?Never3Do you belong to any clubs or organizations such as taoism groups, unions, fraternal or athletic groups, or school groups?No05/09/2022How often do you attend meetings of the clubs or organizations you belong to?Never05/09/2022re you , , , , never , or living with a partner?Ihzystd3505/09/2022Overall Financial Resource Strain (CARDIA)AnswerDate RecordedHow hard is it for you to pay for the very basics like food, housing, medical care, and heating?Not hard at all05/09/2022HQ-2AnswerDate RecordedTotal Giqty139Finalta [facility] [place] [facility] Occupational [facility] - Occupational Stress QuestionnaireAnswerDate RecordedDo you feel stress - tense, restless, nervous, or anxious, or unable to sleep at night because yourmind is troubled all the time - these days?Not at all05/09/2022Exercise Vital SignAnswerDate RecordedOn average, how many days per week do you engage in moderate to strenuous exercise (like a brisk walk)?0 days05/09/2022On average, how many minutes do you engage in exercise at this level?0 min05/09/2022RAPARE - TransportationAnswerDate RecordedIn the past 12 months, has lack of transportation kept you from medical appointments or from getting medications?No07/21/2023In the past 12 months, has lack of transportation kept you from meetings, work, or from getting things needed for daily living?07/21/2023UDIT-CAnswerDate RecordedQ1: How often do you have a drink containing alcohol?Never02/28/2025Q2: How many drinks containing alcohol do you have on a typical day when you are drinking?Patient does not drink02/28/2025Q3: How often do you have six or more drinks on one occasion?Never02/28/2025Housing InstabilityAnswerDate RecordedAre you worried or concerned that in the next two months you may not have stable housing that you own, rent or stay in as a part of a household?No07/21/2023hildcareAnswerDate RecordedDo problems getting child welfare consultant make it difficult for you to work or study?No05/09/2022EmploymentAnswerDate RecordedDo you need help finding a local career center and/or a training program?No05/09/2022Hunger ScreeningAnswerDate RecordedWithin the past 12 months we worried whether our food would run out before we got money to buy more.Never True10/12/2024Within the past 12 months the food we bought just didn't last and we didn't have money to get more.Never True10/12/2024Purpose - LifeAnswerDate RecordedI have a purpose and direction in my life.Neither Agree nor Qdyflqjl15/06/2023EducationAnswerDate RecordedWhat is the highest level of school you have completed or the highest degree you have received?11th grade04/30/2020Sex and Gender InformationValueDate RecordedSex Assigned at BswauYuda11/13/2020 6:23 PM EDTLegal LurGspi4912/07/2014 11:22 AM EDT Gender WfjuuxjtWyvi47/13/2020 6:23 PM EDTSexual AyhhmqlxlcsBvqakoqd79/13/2020 6:23 PM EDTdocumented as of this encounter Last Filed Vital Signs Vital SignReadingTime TakenCommentsBlood Arzeysos116/6610 1:07 PM EDT Ynwlb419002/09/2025 1:07 PM EDTTemperature--Respiratory Rate--Oxygen Colyypazvd93% 02/09/2025 1:07 PM EDTInhaled Oxygen Concentration--Zzegtq840.9 kg (229 lb) 02/09/2025 1:07 PM EDTHeight--Body Mass Index34.8208 6:56 AM EDT documented in this encounter Functional Status * AUDIT-C ScoreAnswerDate of ViptnqumxbNxlhvy814/28/2025 10:34 AM Clemencia Sears MA * QuestionAnswerDate of AssessmentAuthorQ1: How often do you have a drink containing alcohol?Never10/ 10:34 AM Clemencia Sears MAQ2: How many drinks containing alcohol do you have on a typical day when you are drinking? Patient does not drink02/28/2025 10:34 AM Clemencia Sears MAQ3: How often do you have six or more drinks on one occasion?Never02/28/2025 10:34 AM Clemencia Avery MA documented as of this encounter Progress Notes * Leslie Recinos, [facility] - 02/09/2025 1:00 PM EDT Images from the original note were not included. [facility] - PHARMACY MEDICATION MANAGEMENT [address] [facility] [address] Subjective SUBJECTIVE: Referring Provider: GERONIMO Justice ([facility]) [facility] Referring Provider: No Consult Agreement: Yes At last PharmD visit, Victoza started. Metformin reduced to 500 mg BID. Yohannes Andre is a 64 y.o. (White or [1]) male who presents for a follow up MTM visit of Type 2 Diabetes Mellitus. Yohannes Andre is accompanied by his spouse, Paula. Pertinent current medications include: Metformin XR 500 mg 1 tabs PO BID Farxiga 10 mg daily Victoza 1.8 mg weekly Pertinent previous medications include: Lantus- stopped with optimization of GLP-1 Trulicity (08/2023-04/2024)- concern for GI side effects Jardiance 10 mg daily - Gi side effects and frequent urination Medication with contraindications: DPP-IV: Heart Failure Pioglitazone: Heart Failure PERTINENT PAST MEDICAL HISTORY: Chronic Kidney Disease: Yes Atherosclerotic Cardiovascular Disease (ASCVD): Yes Heart Failure with Reduced/Preserved Ejection Fraction: Yes Pancreatitis/Gastroparesis: No Medullary Thyroid Carcinoma: No Bariatric Surgery: No Genitourinary Fungal Infections: No DIET: Breakfast: Eggos peanut butter/jelly, cereal, PB& Jelly Lunch: N/A Dinner: Pasta Snacks: Yogurt ,cottage cheese Drinks: Water, diet Dr. Wagoner, Faygo Cream Soda No diet changes EXERCISE: Activity level is increasing TESTING Home blood glucose: Patient currently has a personal CGM in place. Blood Glucose Device Brand: Dayjet G7 Diabetic Supplier: [employer] Ed Thai Date of : 1960 Generated at: Feb 09, 2025 1:06 PM EDT Reporting period: ThuJan 27, 2025 - ThuFeb 09, 2025 Glucose Details Average glucose: 136 mg/dL GMI: 6.6% Standard deviation: 33 mg/dL Coefficient of Variation: 24.6% Time in Range Very High: 1% High: 9% In Range: 89% Low: 1% Very Low: <1% Target Range 70-180 mg/dL Sensor usage Days with data: Time active: 94% Avg. calibrations per day: 0.0 Objective OBJECTIVE: Vitals: BP 118/66 Pulse 77 Wt 103.9 kg (229 lb) SpO2 93% BMI 34.82 kg/m?? Caffeine intake within 60 minutes: No Height: Weight: Wt Readings from Last 3 Encounters: 02/09/25 103.9 kg (229 lb) 12/16/24 102.1 kg (225 lb) 12/09/24 102.1 kg (225 lb) Weight Trend: stable. BMI: Body mass index is 34.82 kg/m??. A1c: Lab Results Component Value Date HGBA1C 7.2 (H) 11/09/2024 IASMTZT0S 6.9 (A) 08/03/2024 SCr: Lab Results Component Value Date CREATININE 0.80 12/09/2024 GFR: GFR MDRD Af Amer Date Value Ref Range Status 11/20/2021 >60 >59 ml/min/1.73sq.m Final GFR MDRD Non Af Amer Date Value Ref Range Status 11/20/2021 >60 >59 ml/min/1.73sq.m Final UACR: @LABLAST(albcreatra) No results found for: EXTPOCALB No results found for: EXTUMICOR Vitamin B12 Level: Lab Results Component Value Date EQJFBGTT93 286 12/27/2021 Lipid Management: Lab Results Component Value Date CHOL 122 (L) 09/16/2024 HDL 28 (L) 09/16/2024 LDLCALC 53 09/16/2024 TRIG 207 (H) 09/16/2024 The ASCVD Risk score (Danay GORE, et al., 2019) failed to calculate for the following reasons: Risk score cannot be calculated because patient has a medical history suggesting prior/existing ASCVD ADA Diabetes Quality Measures: Comments: - A1c: Up to date 02/09/25; 5.8% - Kidney Screening: - SCr: Up to date 09/16/2024; 0.62 - UACR: Up to date 09/27/2024; 118 - Lipid Screening: Up to date 09/16/24; LDL 53, TG 207 (improved from 369) - Vitamin B12: UP to date: 01/18/2024; WNL - Eye Exam: Overdue 08/2023; Rec'd to schedule - Foot Exam: Up to date 11/2024; DPM - Dental Exam: Up to date 12/29/23 - Tobacco User: Yes; working to decrease. Has patches. Failed gum - On Aspirin: No - On BRANDY/ARB: No - On Statin: Yes -Atorvastin 40 mg daily - Immunizations: Influenza Complete: No Pneumonia Complete: No Hepatitis B Complete: No Shingles Complete: No Tdap Complete: No Covid Complete: No Immunization History Administered Date(s) Administered COVID-19, mRNA, LNP-S, PF, 30mcg/0.3mL Dose 10/02/2020, 10/23/2020, 05/08/2021 ASSESSMENT/PLAN: ASSESSMENT: Type 2 Diabetes Mellitus: controlled as evidenced by hemoglobin A1c of 5.8% on 02/09/2025. Most recent 2 week blood glucose average: 136 mg/dL A1C improved from 7.2% in November 2024 to 5.8% February 2025 Recent increase in GI symptoms. Upon further review, appears patient received metformin IR last month, which would explain the change. 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 Patient to switch back LOLY and notify PPMM if symptoms do not resolve. Dose reduction from 1000 mg BID to 500 mg BID did improve symptoms some and glucose has remained primarily controlled with this change. BP has stabilized. No further hypotensive episodes. Activity level is increasing as foot heals. However, patient notes having some concerns on the other foot. He is seeing DPM today to be evaluated Recommended flu vaccine. Patient is agreeable. We will wait until after DPM eval to ensure patient does not have an active infection. Tentative plan for vaccination at next INR appt 02/28/25 PPG elevation q48h. Upon further discussion patient has been taking Victoza Q48H. Discussed if GI symptoms do not resolve with XR metformin, we will plan to reduce Victoza to 1.2 mg daily. Patient v/u and will call with symptoms update in 1 week. Vitamin B12 ordered to ensure stability with prolonged metformin use Recommend yearly diabetic eye exam EDUCATION / ADA MEASURES: Reviewed general diabetes pathophysiology and management Reviewed A1C and blood glucose goals Reviewed CGM use and report with patient Reviewed signs and symptoms of hyperglycemia/hypoglycemia and how to treat Reviewed diabetes medication dosing, route, frequency, and side effects Encouraged using the Plate Method for healthy eating Requested to bring in blood sugar readings to next visit MEDICATION PLAN: Change metformin IR back to XR. Continue dose reduction of 500 mg BID Call PPMM if GI symptoms do not resolve with this change. We will reduce Victoza to 1.2 mg daily asVictoza kinetics require daily dosing. Current medication regimen: Metformin XR 500 mg 1 tabs PO BID Farxiga 10 mg daily Victoza 1.8 mg daily Refills needed on pertinent current medications/supplies: No Patient Assistance, Consulting Solution Director Coupon, or Prior Authorization: No MONITORING: CGM: Yes Glucometer Testing: As needed with CGM FOLLOW UP: Next PCP visit: TBD Next Pharmacist visit: 05/2025 Signature: Leslie Recinos PharmD, [facility] 30 minute pvil-ft-qjnh follow-up appointment POC A1C obtained Leslie Recinos Maria D 02/09/25 1614 * Pily Fletcher - 02/09/2025 1:00 PM EDT Betsey Sequeira from [facility] Registration called P:[phone] ext: [phone] requesting a new revised order for the patients B12 order. The order needs to have the providers name and signature. And fax to F:[phone]. * Leslie Recinos [facility] - 02/09/2025 1:00 PM EDT Order ink signed and faxed to [facility]. Leslie Recinos, PharmJorge, BCPS March 06, 2025 12:56 PM Leslie Recinos [facility] 03/06/25 1256 documented in this encounter Miscellaneous Notes * Addendum Note - Leslie Recinos [facility] - 02/09/2025 1:00 PM EDTAddended by: LESLIE RECINOS on: 03/06/2025 12:57 PM Modules accepted: Orders documented in this encounter Plan of Treatment DateTypeDepartmentCare Team (Latest Contact Info)Jwcuwjjvcit63/14/2025 8:30 AM ESTHospital Encounter [facility] [address] [place] [address] Afsaneh Hammond, DPFransisco [address] [place], [place] [id number] 03/17/2025 8:30 AM ESTAnesthesia Event [facility] [address] [place] [address] Naif Mireles, DO [address] [facility] [place] [address] 03/17/2025 8:30 AM EST - 03/17/2025 10:00 AM ESTSurgery [facility] - Surgery [address] [place] [address] Afsaneh Hammond, DPM [address] [place] [address] AMPUTATION METATARSAL AND TOE partial 5th ray, wound vac [[id number] (CPT??)] 03/20/2025 10:30 AM ESTHospital Encounter [facility] - Cardiac Cath [address] [place] [address] Mary Beth De Leon MD [address] [place] [address] 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 exposed ([facility])03/20/2025 10:30 AM EST - 03/20/2025 12:30 PM ESTSurgery [facility] - Cardiac Cath [address] [place] [address] Mary Beth De Leon MD [address] [place] [address] Vascular Invasive- Left Lower Extremity Angiogram with possible intervention 03/23/2025 1:15 PM ESTFollow Up Anticoagulation [facility] - Pharmacy Medication Management [address] [place] [address] Yusuf Fletcher MD [address] [facility], [address] [place] [address] 03/28/2025 2:40 PM ESTOffice Visit [facility] [address] [place] [address] Mary Beth De Leon MD [address] [place] [address] 03/29/2025 2:00 PM ESTFollow Up Anticoagulation [facility] - Pharmacy Medication Management [address] [place] [address] Yusuf Fletcher MD [address], [address] [place] [address] 05/12/2025 1:00 PM ESTClinical Support [facility] - Pharmacy Medication Management [address] [place] [address] Yusuf Fletcher MD [address], [address] [place] [address] NameTypePriorityAssociated DiagnosesOrder ScheduleVitamin Y54GmcHlwogpf Type II diabetes mellitus with neurological manifestations ([facility]) 1 Occurrences starting 02/09/2025 until 02/09/2026Vitamin Z73AalDahabwc Type II diabetes mellitus with neurological manifestations ([facility] 1 Occurrences starting 03/06/2025 until 03/06/2026NamePriorityAssociated DiagnosesDate/TimeAMPUTATION 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 documented as of this encounter Procedures Procedure NamePriorityDate/TimeAssociated DiagnosisCommentsPOCT HEMOGLOBIN A1C QXZKtdkdqr38/09/2025 3:55 PM EDT Type II diabetes mellitus with neurological manifestations ([facility]) documented in this encounter Results * POCT Hemoglobin A1C - MTM (02/09/2025 3:55 PM EDT)ComponentValueRef RangeTest MethodAnalysis TimePerformed AtPathologist SignatureExternal MTM Hemoglobin A1C5.84 - 6MANUALLY TRANSCRIBED RESULTSSpecimen (Source)Anatomical Location / LateralityCollection Method / VolumeCollection TimeReceived TimeBlood 02/09/2025 3:55 PM EDT Narrative Authorizing ProviderResult TypeResult StatusPromedica Pharmacy Medication ManagementPOINT OF CARE TEST ORDERABLESFinal ResultPerforming Organization AddressCity/State/ZIP CodePhone Number MANUALLY TRANSCRIBED RESULTS documented in this encounter Visit Diagnoses Diagnosis Type II diabetes mellitus with neurological manifestations (CMS-HCC)- Primary Type II or unspecified type diabetes mellitus with neurological manifestations, not stated as uncontrolled 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 exposed (CMS-HCC)- Primary 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 exposed (CMS-HCC) documented in this encounter Additional Health Concerns AssessmentNoted TimePHQ-9 Depression Total Score: 2:03 PM EDTA Body Mass Index follow-up plan has been documented for the nbbndnu2311/13/2017 2:35 PM EDTdocumented as of this encounter Care Teams Team MemberRelationshipSpecialtyStart DateEnd Date Nathalie Handley APRN-CAITY [address] [place] [address] PCP - GeneralNurse Practitioner09/08/24documented as of this encounter
--- OUTSIDE RECORDS SUMMARY | 2025-02-28 08:45 | XMS_ITS | Encounter Summary ---
Author Organization [facility] tem Address [id number] [address] [place] [address] Care Team Providers Care Geospatial Technician Name Role Phone Nathalie Handley Primary Care Provid er Reason for Visit * Auth/Cert (Routine)SpecialtyDiagnoses / ProceduresReferred By ContactReferred To Contact Referral IDStatusReasonStart DateExpiration DateVisits RequestedVisits [id number] Encounter Details DateTypeDepartmentCare Team (Latest Contact Info)Lvxaxqoozsk27/28/2025 9:45 AM EDTFollow Up Anticoagulation [facility] - Pharmacy Medication Management [address] [place] [address] Yusuf Fletcher MD [address] [place] [address], [address] [place] [address] [facility] current use of 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 therapy (Primary Dx); S/P AVR (aortic valve replacement); Encounter for immunization Social History Tobacco UseTypesPacks/DayYears UsedDateSmoking Tobacco: Every KpvEsxnjhzdpc911.9 Started: 1974Smokeless Tobacco: NeverAlcohol UseStandard Drinks/WeekCommentsYes2 (1 standard drink = 0.6 oz pure alcohol)history of alcohol abuseAHC Utilities AnswerDate RecordedIn the past 12 months has the electric, gas, oil, or water [employer] threatened to shut off services in your home?No07/21/2023Social Connection and Isolation PanelAnswerDate RecordedIn a typical week, how many times do you talk on the phone with family, friends, or neighbors?Once a week 05/09/2022How often do you get together with friends or relatives?Once a week 05/09/2022How often do you attend episcopal or buddhist services?Never05/09/2022o you belong to any clubs or organizations such as episcopal groups, unions, fraternal or athletic groups, or school groups?No05/09/2022How often do you attend meetings of the clubs or organizations you belong to?Never05/09/2022re you , , , , never , or living with a partner?Khgdydi1105/09/2022Overall Financial Resource Strain (CARDIA)AnswerDate RecordedHow hard is it for you to pay for the very basics like food, housing, medical care, and heating?Not hard at all05/09/2022HQ-2AnswerDate RecordedTotal Mevbt026Fin[facility] [place] of Occupational Health - Occupational Stress QuestionnaireAnswerDate [...] or from getting things needed for daily living?No07/21/2023UDIT-CAnswerDate RecordedQ1: How often do you have a [...] part of a household?No07/21/2023hildcareAnswerDate RecordedDo problems getting exceptional children teacher assistant make it difficult for you to [...] and direction in my life.Neither Agree nor Wsfwckaq27/06/2023EducationAnswerDate RecordedWhat is the highest level of school you have completed or the highest degree you have received?11th grade04/30/2020Sex and Gender InformationValueDate RecordedSex Assigned at VimmrZxyg40/13/2020 6:23 PM EDTLegal WytSxiy8512/07/2014 11:22 AM EDT Gender IknfozneGlnw30/13/2020 6:23 PM EDTSexual XfpwmclhykoDvpypyfn27/13/2020 6:23 PM EDTdocumented as of this encounter Functional Status * AUDIT-C ScoreAnswerDate of AdekxqupveXcvufq690/28/2025 10:34 AM Clemencia Sears MA * QuestionAnswerDate of AssessmentAuthorQ1: How often do you have a drink containing alcohol?Never02/28/2025 10:34 AM Clemencia Sears MAQ2: How many drinks containing alcohol do you have on a typical day when you are drinking? Patient does not drink02/28/2025 10:34 AM Clemencia Sears MAQ3: How often do you have six or more drinks on one occasion?Never02/28/2025 10:34 AM Clemencia Avery MA documented as of this encounter Progress Notes * Sarita Ruth, [facility] - 02/28/2025 9:45 AM EDT 15 minute ewjk-bv-tipk follow-up anticoagulation appointment. INR performed in office per protocol. INR 2.9 (goal range: 2.0-3.0). Patient reports: Taking warfarin dosing as documented. Missed or extra doses of warfarin: No Changes to medications: No Changes to lifestyle (diet / alcohol / smoking / activity): No Recent emergency department visit / hospitalization / health changes / new contraindication to current 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: No Signs/symptoms of bruising/bleeding or clotting or any intolerable adverse events: No Upcoming procedures: No Anticoagulant prescription needed: No Seen referring provider in the last year Duration of therapy reviewed Patient could benefit from [facility] pill packaging and patient is agreeable forreferral to be sent: No Assessment: INR is remaining stable in therapeutic range on current warfarin regimen. Plan: Patient instructed to continue warfarin 5 mg MWF and 7.5 mg AOD. Check INR in 4 week(s). Patient verbalizes understanding of 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 dosing instructions and information discussed. Dosing regimen, counseling, and follow-up appointment were provided to the patient. Patient reminded to call with questions or any medication changes. Patient instructed to seek medical attention if anymajor bleeding/bleeding that persists or worsens. Sarita Ruth RPH 02/28/25 1026 * Sarita Ruth RPH - 02/28/2025 9:45 AM EDT SARITA RUTH RPH administered FLUCELVAX 0.5 ML via intramuscular route in the right deltoid on February 28, 2025. The Lot Number is [id number], [place] 23122-999-63, Electricity Trader is [employer], and Expiration Date is 09/17/2025. VIS provided to patient on February 28, 2025. Patient provided consent to any costs associated with the influenza vaccine and administration. Sarita Ruth RPH 02/28/25 1026 * Sarita Ruth RPH - 02/28/2025 9:45 AM EDT Patient's spouse reports he is starting Bactrim today. Major DDI; reduce weekly dose 30% with safety check early next week. Dosing calendar updated. Patient inquires about additional pain management OTC> Recommended short trial of APAP 500 mg Q6H until he sees his DPM tomorrow to discuss further. Sarita Ruth PharmD, BCPS March 08, 2025 2:13 PM Sarita Ruth [facility] 03/08/25 1419 documented in this encounter Plan of Treatment DateTypeDepartmentCare Team (Latest Contact Info)Hfrhbjmxelv94/14/2025 8:30 AM ESTHospital Encounter [facility] [address] [place] [address] Afsaneh Hammond, DPM [address] [place] [address] 03/17/2025 8:30 AM ESTAnesthesia Event [facility] [address] [place] [address] Naif Mireles, DO [address] [facility] [place] [address] 03/17/2025 8:30 AM EST - 03/17/2025 10:00 AM ESTSurgery [facility] [address] [place] [address] Afsaneh Hammond, DPM [address] [place] [address] AMPUTATION METATARSAL AND TOE partial 5th ray, wound vac [12976 (CPT??)] 03/20/2025 10:30 AM ESTHospital Encounter [facility] - Cardiac Cath [address] [place] [address] Mary Beth De Leon MD [address] [place] [address] 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 exposed ([facility])03/20/2025 10:30 AM EST - 03/20/2025 12:30 PM ESTSurgery [facility] - Cardiac Cath [address] [place] [address] Mary Beth De Leon MD [address] [place] [address] Vascular Invasive- Left Lower Extremity Angiogram with possible intervention 03/23/2025 1:15 PM ESTFollow Up Anticoagulation [facility] - Pharmacy Medication Management [address] [place] [address] Yusuf Fletcher MD [address] [place] [address] 03/28/2025 2:40 PM ESTOffice Visit [facility] [address] [place] [address] Mary Beth De Loen MD [address] [place] [address] 03/29/2025 2:00 PM ESTFollow Up Anticoagulation [facility] - Pharmacy Medication Management [address] [place] [address] Yusuf Fletcher MD [address] [place] [address] 05/12/2025 1:00 PM ESTClinical Support [facility] - Pharmacy Medication Management [address] [place] [address] Yusuf Fletcher MD [address] [place] [address] NamePriorityAssociated DiagnosesDate/TimeAMPUTATION 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 use of 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 therapy S/P AVR (aortic valve replacement) Encounter for immunization documented in this encounter Results * (ABNORMAL) POCT Protime / INR (02/28/2025 9:53 AM EDT)ComponentValueRef Range Test MethodAnalysis TimePerformed AtPathologist SignatureINR2.9(A)0.8 - 1.2 MANUALLY TRANSCRIBED RESULTSSpecimen (Source)Anatomical Location / Laterality Collection Method / VolumeCollection TimeReceived Time02/28/2025 9:53 AM EDT Narrative Authorizing ProviderResult TypeResult StatusPromedica Pharmacy Medication ManagementPOINT OF CARE TEST ORDERABLESFinal ResultPerforming Organization AddressCity/State/ZIP CodePhone Number MANUALLY TRANSCRIBED RESULTS documented in this encounter Visit Diagnoses Diagnosis [facility] current use of 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 therapy- Primary S/P AVR (aortic valve replacement) Heart valve replaced by other means Encounter for immunization 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 exposed (CMS-HCC)- Primary 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 exposed (CMS-HCC) documented in this encounter Additional Health Concerns AssessmentNoted TimePHQ-9 Depression Total Score: 2:03 PM EDTA Body Mass Index follow-up plan has been documented for the gihokxg0111/13/2017 2:35 PM EDTdocumented as of this encounter Care Teams Team MemberRelationshipSpecialtyStart DateEnd Date Nathalie Handley APRN-NP [address] [place] [address] PCP - GeneralNurse Practitioner09/08/24documented as of this encounter
--- OUTSIDE RECORDS SUMMARY | 2025-03-09 10:30 | XMS_ITS | Encounter Summary ---
Author Organization [facility] Address [address] [place] [address] Care Team Providers Care Glass Designer Name Role Phone Jose Garner DO Primary Care Provider [phone] Reason for Visit * Imaging (Routine) - ClosedSpecialtyDiagnoses / ProceduresReferred By Contact Referred To ContactRadiology Diagnoses Ulcer of left foot with fat layer exposed (HCC) Procedures MR foot left w and wo IV contrast Afsaneh Hammond W, DPM [address] [place] [address] Phone: tel: fax: [facility] [address] [place] [address] Phone: tel: fax: Referral IDStatusReasonStart DateExpiration DateVisits RequestedVisits [id number]/28/20254/ Encounter Details DateTypeDepartmentCare Team (Latest Contact Info)Tzeswrrzonb44/06/2025 10:30 AM ESTAncillary Procedure [facility] [address] [place] [address] 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) (Primary Dx) Social History Tobacco UseTypesPacks/DayYears UsedDateSmoking Tobacco: Every DayCigarettes0.515 Smokeless Tobacco: Never Comments:Smoked 1-2 pks a da y for [address]yrs have [address] back 1/2 pk orless a day Alcohol UseStandard Drinks/WeekCommentsNot Currently6 (1 standard drink = 0.6 oz pure alcohol)Sex and Gender InformationValueDate RecordedSex Assigned at Not on fileLegal LrxOryq5612/30/2022 2:14 PM EDTGender IdentityNot on fileSexual OrientationNot on filedocumented as of this encounter Plan of Treatment DateTypeDepartmentCare Team (Latest Contact Info)Tkrbvqcpjce60/18/2025 1:15 PM ESTOffice Visit [facility] [place] [facility] [address] [place] [address] Afsaneh Hammond DPFransisco [address] [address] 03/28/2025 1:15 PM ESTOffice Visit [facility] [place] [facility] [address] [place] [address] Afsaneh Hammond DPM [address] [place] [address] 04/06/2025 2:30 PM ESTOffice Visit [facility] [place] [facility] [address] [place] [address] Afsaneh Hammond DPM [address] [place] [address] 04/13/2025 3:30 PM ESTOffice Visit [facility] [place] [facility] [address] [place] [address] Afsaneh Hammond DPM [address] [place] [address] 04/20/2025 3:00 PM ESTOffice Visit [facility] [place] [facility] [address] [place] [address] Afsaneh Hammond DPM [address] [place] [address] 04/25/2025 3:00 PM ESTOffice Visit [facility] [address] [place] [address] Afsaneh Hammond, DP [address] [place] [address] 05/02/2025 3:00 PM ESTOffice Visit [facility] [address] [place] [address] Afsaneh Hammond, DP [address] [place] [address] 05/11/2025 3:15 PM ESTOffice Visit [facility] [address] [place] [address] Afsaneh Hammond, DP [address] [place] [address] 05/30/2025 4:00 PM ESTProcedure Visit [facility] [address] [place] [address] Afsaneh Hammond, [employer] [facility] [address] [place] [address] documented as of this encounter Procedures Procedure NamePriorityDate/TimeAssociated DiagnosisCommentsMR FOOT LEFT W AND WO IV MZECCRWZEftcgdt32/06/2025 11:43 AM EST Ulcer of foot with muscle involvement without evidence of necrosis, unspecified laterality (HCC) documented in this encounter Visit Diagnoses Diagnosis 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
--- OUTSIDE RECORDS SUMMARY | 2025-03-09 16:00 | XMS_ITS | Encounter Summary ---
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) (Primary Dx); Type II or unspecified type diabetes mellitus with neurological manifestations, not stated as uncontrolled(250.60) (HCC); Acute osteomyelitis of left foot (HCC); Blister of second toe of left foot, initial encounter; Blister of left great toe, initial encounter Social History Tobacco UseTypesPacks/DayYears UsedDateSmoking Tobacco: Every DayCigarettes0.515 Smokeless Tobacco: Never Comments:Smoked 1-2 pks a da y for 50yrs have cut [address] back 1/2 pk orless a day Alcohol UseStandard Drinks/WeekCommentsNot Currently6 (1 standard drink = 0.6 oz pure alcohol)Sex and Gender InformationValueDate RecordedSex Assigned at Not on fileLegal HeyXxbs2012/30/2022 2:14 PM EDTGender IdentityNot on fileSexual OrientationNot on filedocumented as of this encounter Last Filed Vital Signs Vital SignReadingTime TakenCommentsBlood Pressure--Pulse--Temperature-- Respiratory Rate--Oxygen Saturation--Inhaled Oxygen Concentration--Behhys102 kg (226 lb)03/09/2025 4:23 PM VSEZeqbjb213.8 cm (5' 10 )03/09/2025 4:23 PM ESTBody Mass Index32.43105/09/2024 4:23 PM ESTdocumented in this encounter Progress Notes * Afsaneh Hammond, ASA - 03/09/2025 4:00 PM EST Images from the original note were not included. Subjective Patient ID: Ed Jorge Govea is a 64 y.o. male who presents for Foot Wound Check (Pt is here today for wound check /BS: 136). HPI Established patient returns for follow up of left foot ulceration. He states he had an MRI this morning to rule out bone infection. He notes that he had a very long car ride on Thursday and when he removed his shoes and socks at the end of the day he noticed blisters on the left hallux and 2nd digit. He does not know what caused the blisters. HX: 2 revascularization procedures done R, most recently 03/07/[address] De Leon. [...] Daily, Disp: , Rfl: Continuous Blood Gluc Client Engagement Manager (Dexcom G7 Client Engagement Manager) device, , Disp: , Rfl: Continuous Blood Gluc Sensor (Dexcom G7 Sensor) mis, , Disp: , Rfl: Docusate Sodium (DSS) [...] days 3-14, Disp: 34 tablet, Rfl: 0 sulfamethoxazole-trimethoprim (Bactrim DS) 800-160 MG per tablet, Take 1 tablet by mouth every 12 (twelve) hours, Disp: 20 tablet, Rfl: 0 warfarin (Coumadin) 5 MG tablet, Take by mouth Take as directed per After Visit Summary., Disp: , Rfl: Wound Dressings ([facility] wound/burn) gel, Apply 1 application topically Daily, Disp: 44 mL, Rfl: 3 No current facility-administered medications for this visit. Allergies Cephalexin, Clindamycin, and Doxycycline Past Surgical [...] is healed. Webspaces are clean and dry. There is hematogenous blister noted of the distal lateral tip of the left hallux. This is smaller than a dime. There is an additional serous blister present and encompassing the distal tuft of the 2nd left digit. HYPERKERATOSIS: sub 5th met head L NAIL PATHOLOGY: Nails 1 bilaterally are 7 mm thick, yellow and white, dystrophic, with subungual debris. Nail 2 right is 4 mm thick, discolored, fungal, incurvated Skin texture and turgor: dry, turgor diminished. Ulcer #1 Ulcer location: L sub 5th metatarsal head Ulcer Size: 03/09/2025: 1.2 x 1.3 x 0.4 cm, circumferential undermining with exposed capsule 02/28/2025: 1.5 x 1.5 x 0.4 cm, [...] absent at IPJ, MPJ, medial malleolus bilaterally Arthur Tommie monofilament: absent at 10/10 sites Psychiatric: Mood and Affect: Mood normal. Behavior: Behavior normal. Bone culture R [address] [place] [address] head 12/16/24: E. Faecalis, MRSA, Diptheroids. MRSA susceptible to daptomycin, doxycycline, Bactrim, vanco MRI at [facility] 12/01/2024: shows osteomyelitis of the 5th digit [...] tibioperoneal); AUGUSTO consistent with moderate arterial disease. MRI LEFT FOOT 03/09/25: Osteomyelitis of 5th met head without abscess Last XRAY: 02/2025, left foot Modifier: Q 7, Q9 Assessment/Plan ICD-10-CM 1. Ulcer of left foot with necrosis of bone ([facility]) L97.524 2. Type II or unspecified type diabetes mellitus with neurological manifestations, not stated as uncontrolled(250.60) ([facility]) E11.49 3. Acute osteomyelitis of left foot ([facility]) M86.172 Patient was examined and evaluated. The blisters were lanced but not deroofed. The areas were covered with Band-Aids. Patient was instructed to keep the area covered with Band-Aid and change daily. Do not remove the covering skin. Monitor for signs of infection. I reviewed the MRI, discussed findings with the patient and his . I explained that there is presence of osteomyelitis in the 5th metatarsal head. I recommended partial 5th ray amputation with wound VAC application to aid in wound healing. Will order peel and place vac to office for application in OR and weekly changes. I also recommended a referral to Dr. De Leon for revascularization. I will contact Dr. De Leon and see when he prefers to see Ed. Patient has had 2 doses of Bactrim and has responded well to this. Tolerating medication well. No wound debridement done today. Will plan to sign consent the day of surgery. RTO 1st POV This note was created with the assistance [...] Plan of Treatment DateTypeDepartmentCare Team (Latest Contact Info)Ltqgtgfqgbl34/18/2025 1:15 PM ESTOffice Visit [facility] [address] [place] [address] Afsaneh Hammond, DPM [address] [place] [address] 03/28/2025 1:15 PM ESTOffice Visit [facility] [address] [place] [address] Afsaneh Hammond, DPM [address] [place] [address] 04/06/2025 2:30 PM ESTOffice Visit [facility] [place] [facility] [address] [place] [address] Afsaneh Hammond, DPM [address] [place] [address] 04/13/2025 3:30 PM ESTOffice Visit [facility] [address] [place] [address] Afsaneh Hammond, DPM [address] [place] [address] 04/20/2025 3:00 PM ESTOffice Visit [facility] [place] [address] [place] [address] Afsaneh Hammond, DPM [address] [place] [address] 04/25/2025 3:00 PM ESTOffice Visit [facility] [address] [place] [address] Afsaneh Hammond, DPM [address] [place] [address] 05/02/2025 3:00 PM ESTOffice Visit [facility] [address] [place] [phone] Afsaneh Hammond, DPM [address] [place] [address] 05/11/2025 3:15 PM ESTOffice Visit [facility] [address] [place] [phone] Afsaneh Hammond, DPM [address] [place] [address] 05/30/2025 4:00 PM ESTProcedure Visit [facility] [address] [place] [phone] Afsaneh Hammond, DP [address] [place] [address] documented as of this encounter Visit Diagnoses Diagnosis 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
--- OUTSIDE RECORDS SUMMARY | 2025-03-14 13:30 | XMS_ITS | Encounter Summary ---
Author Organization [facility] tem Address [id number] [address] [place] [address] Care Team Providers Care Prototype Fabricator Name Role Phone Nathalie Handley Primary Care Provid er Encounter Details DateTypeDepartmentCare Team (Latest Contact Info)Bwcmvdvqutb55/11/2025 1:30 PM ESTProcedure visit [facility] - Pre Admit [address] [place] [id number] Social History Tobacco UseTypesPacks/DayYears UsedDateSmoking Tobacco: Every NvlYxxucxpyud635.9 Started: 1975Smokeless Tobacco: NeverAlcohol UseStandard Drinks/WeekCommentsNot Currently2 (1 standard drink = 0.6 oz pure alcohol)history of alcohol abuseAHC UtilitiesAnswerDate RecordedIn the past 12 months has the [place], gas, oil, or water Atrica threatened to shut off services in your home?No07/21/2023Social Connection and Isolation PanelAnswerDate RecordedIn a typical week, how many times do you talk on the phone with family, friends, or neighbors?Once a week 05/09/2022How often do you get together with friends or relatives?Once a week 05/09/2022How often do you attend restoration or jew services?Never3Do you belong to any clubs or organizations such as restoration groups, unions, fraternal or athletic groups, or school groups?No05/09/2022How often do you attend meetings of the clubs or organizations you belong to?Never05/09/2022re you , , , , never , or living with a partner?Oepzlgp9805/09/2022Overall Financial Resource Strain (CARDIA)AnswerDate RecordedHow hard is it for you to pay for the very basics like food, housing, medical care, and heating?Not hard at all05/09/2022HQ-2AnswerDate RecordedTotal Lttkx770Finsalt [facility] [place] of Occupational Health - Occupational Stress QuestionnaireAnswerDate [...] stay in as a part of a household?07/21/2023hildcareAnswerDate RecordedDo problems getting children's attendant make it difficult for you to work or study?No05/09/2022EmploymentAnswerDate RecordedDo you need help finding a local career center and/or a training program?05/09/2022Hunger ScreeningAnswerDate RecordedWithin the past 12 months we worried whether our food would run out before we got money to buy more.Never True10/12/2024Within the past 12 months the food we bought just didn't last and we didn't have money to get more.Never True10/12/2024Purpose - LifeAnswerDate RecordedI have a purpose and direction in my life.Neither Agree nor Fhapuaoo74/06/2023EducationAnswerDate RecordedWhat is the highest level of school you have completed or the highest degree you have received?11th grade04/30/2020Sex and Gender InformationValueDate RecordedSex Assigned at ZawebUikm69/13/2020 6:23 PM EDTLegal ZsrMvpc9112/07/2014 11:22 AM EDT Gender PsltkmkjMsnf94/13/2020 6:23 PM EDTSexual EythckgghzpWfvxzvty85/13/2020 6:23 PM EDTdocumented as of this encounter Last Filed Vital Signs Vital SignReadingTime TakenCommentsBlood Pressure--Pulse--Temperature-- Respiratory Rate--Oxygen Saturation--Inhaled Oxygen Concentration--Hntxih696.3 kg (230 lb)03/14/2025 1:41 PM MGUQqzenn145.7 cm (5' 8 )03/14/2025 1:41 PM EST Body Mass Index34.9703/14/2025 1:41 PM ESTdocumented in this encounter Patient Instructions * Patient Instructions* Vera Alcala RN - 03/14/2025 1:30 PM EST Preoperative Education Checklist- General Surgery date: 03/17/25 Surgery time: 0830 a.m. Arrival time: 0630 a.m. 1. Bring a photo ID and your insurance card with you the day of surgery. You will check in at the main lobby of the [facility] [place]- registration desk is straight ahead as soon as you walk in. Tell them you are here for surgery. 2. If you have a Living Will/Durable Power of Hospice Community Liaison for Health Care that is not on file here, please bring a copy the day of surgery. 3. Please shower/bathe the night before surgery with the provided soap or wipes. Do not shower the morning of surgery- you will do use wipes when you arrive here at the hospital before getting into your surgical gown. Do not shave the area of your procedure for 2 days prior to your surgery. 4. NO powder, lotion, perfume/cologne, aftershave, make-up, deodorant, or hair products after you have bathed. 5. NO nail kenyan/acrylic on at least one finger. If you are having a hand, wrist or foot surgery then all nail kenyan and artificial/acrylic nails must be removed from that hand or foot. 6. Avoid ALL Aspirin and non-steroidal anti-inflammatory drugs and certain vitamins (Ibuprofen, Advil, Aleve, Excedrin, Meloxicam, Celebrex, fish/krill oil, etc.) for 7 days prior to surgery as instructed by your surgeon and/or your prescribing doctor. Tylenol IS ALLOWED. If you are on Ticlid, Xarelto, Eliquis, Pradaxa, Plavix or Coumadin, please check with your prescribing doctor for instructions for when to stop them. 7. If you use an inhaler, continue to use it routinely. 8. Nothing to eat or drink (not even water, gum, mints, or hard candy!) AFTER midnight prior to your surgery. 9. Take only medications that you are instructed to on the morning of surgery with a TINY SIP OF WATER. 10. Choose a responsible adult that will be able to drive you home when you are discharged from your hospital stay for your surgery and can stay with you in your home for 24 hours after your procedure. You must NOT drive any vehicle or operate any machinery for 24 hours after surgery. 11. When you dress for your appointment, please wear loose fitting clothing that is appropriate to accommodate your surgical area procedure. BRING WITH YOU ANY DEVICES YOU MAY NEED: FRANCOIS hose, ice machine, sling/swath, brace or special shoe, oversized zip-up or button up shirt, CPAP machine if staying overnight. 12. Do NOT wear jewelry, watches, or any piercings or metal for surgery- leave these valuables and money at home. 13. Do NOT wear contact lenses for surgery- glasses are okay if needed. 14. The anesthesiologist will talk with you the day of surgery and will ask you to sign a Consent Form. 15. Refrain from smoking or any type of tobacco use for at least 8 hours and marijuana for 24 hoursprior to arrival for your surgery. 16. Notify your surgeon if you develop any illness before your surgery. 17. If you are staying overnight, please DO NOT BRING your home medications with you. 18. If you have any questions prior to surgery, please call the Preadmission Testing office at [phone], Mon.-Fri. 7 a.m.-3 p.m. Leave a voicemail if needed. Pre-Surgery Instructions: Medication Instructions acetaminophen (TYLENOL) 325 mg tablet Stop taking 0 days prior to procedure albuterol (PROVENTIL HFA;VENTOLIN HFA) 90 mcg/actuation inhaler Take morning of procedure, as needed amLODIPine (NORVASC) 5 mg tablet Continue as prescribed, take morning of procedure atorvastatin (LIPITOR) 40 mg tablet Stop taking 0 days prior to procedure benzonatate (TESSALON PERLES) 200 mg capsule Stop taking 0 days prior to procedure blood sugar diagnostic (TRUE METRIX GLUCOSE TEST STRIP) strip Stop taking 0 days prior to procedure blood-glucose meter (TRUE METRIX GLUCOSE METER) misc Stop taking 0 days prior to procedure blood-glucose meter,continuous (DEXCOM G7 CHILD WELFARE CASEWORKER) misc Stop taking 0 days prior to procedure blood-glucose sensor (DEXCOM G7 SENSOR) device Stop taking 0 days prior to procedure buPROPion SR (WELLBUTRIN SR) 150 mg 12 hr tablet Stop taking 0 days prior to procedure clopidogreL (PLAVIX) 75 mg tablet Per Surgeon's instructions dapagliflozin propanediol (FARXIGA) 10 mg tablet Stop taking 3 days prior to procedure enoxaparin (LOVENOX) 100 mg/mL syringe Per Surgeon's instructions fexofenadine (LACHO) 180 mg tablet Stop taking 0 days prior to procedure lancets 30 gauge misc Stop taking 0 days prior to procedure liraglutide (VICTOZA 3-DIANDRA) 0.6 mg/0.1 mL (18 mg/3 mL) pen injector Stop taking 0 days prior to procedure lisinopriL (PRINIVIL,ZESTRIL) 10 mg tablet Stop taking 0 days prior to procedure metFORMIN XR (GLUCOPHAGE XR) 500 mg 24 hr tablet Stop taking 0 days prior to procedure metoprolol tartrate (LOPRESSOR) 100 mg tablet Continue as prescribed, take morning of procedure ondansetron (ZOFRAN) 4 mg tablet Stop taking 0 days prior to procedure pantoprazole (PROTONIX) 40 mg EC tablet Continue as prescribed, take morning of procedure pen needle, diabetic (UNIFINE PENTIPS PLUS) 32 gauge x needle Stop taking 0 days prior to procedure spironolactone (ALDACTONE) 25 mg tablet Stop taking 0 days prior to procedure tiZANidine (ZANAFLEX) 4 mg tablet Stop taking 0 days prior to procedure warfarin (COUMADIN) 5 mg tablet Per Surgeon's instructions How to Avoid an Infection after Your Surgery Your doctor will give you specific instructions, but remember: -ALWAYS wash hands before caring for your incision. -No picking, scratching, or rubbing your incision. -No creams, lotion, powder, rubbing alcohol or hydrogen peroxide on the incision (can harm the tissue and slow healing). -Your doctor will give you specific instructions for what type of dressing you will need and how often it will need changed for infection purposes. -No tight clothing on incision. -Do not allow anyone to touch your incision unless they are cleaning, checking, or redressing it (be sure they wash their hands first). -No contact of your incision with pets; avoid sleeping with pets. -Take full course of antibiotic if prescribed for you after surgery- do not stop unless directed cory your physician. You may also be given an antibiotic prior to your surgery to help prevent surgical site infections. -Eat a healthy and varied diet including proteins, fruits, and vegetables to help promote wound healing and keep blood sugars under control if you are diabetic. -Smoking slows the healing process by decreasing the amount of oxygen in your blood that is needed for tissue healing. Try to avoid or stop smoking if possible. LOOK at your incision each morning and each night to check the progress of healing. Some soreness, numbness, itching and/or mild bruising around the incision is normal. Call your doctor if you noticeany of the following: -Increased redness or hardening around the incision area. -Increased pain at the incision site. -Incision feels hot to the touch. -Swelling or pulling apart of the incision edges. -Yellow or green drainage or foul odor coming from the incision. -Bleeding from the incision (apply pressure as needed). -Fever higher than 101 degrees Fahrenheit for more than 4 hours. SHOWERING: Your doctor will give you specific instructions, but remember: -Be careful getting into and out of the shower. -Showers should be quick (5 minutes or less). -Use a clean washcloth to gently wash your incision with soap and water and pat the area dry with aclean towel. -No re-using wash cloths or towels; get a fresh one to clean your incision. -Do not soak in the bathtub, go swimming or use a hot tub (Jacuzzi), or perform activities where your incision is submerged in water or exposed to any fluids or substances until instructed by your doctor. -If your have the sticky strips (steri-strips) over the incision, it is OK to shower with them. Do not remove them. Let them fall off on their own. If you have a question, call your doctor???s office. Go to the follow-up appointment with your doctor. documented in this encounter Miscellaneous Notes * Perioperative Nursing Note - Vera Alcala RN - 03/14/2025 1:30 PM EST Preoperative Education Checklist- General Surgery date: 03/17/25 Surgery time: 0830 a.m. Arrival time: 0630 a.m. 1. Bring a photo ID and your insurance card with you the day of surgery. You will check in at the main lobby of the [facility]- registration desk is straight ahead as soon as you walk in. Tell them you are here for surgery. 2. If you have a Living Will/Durable Power of Hospice Community Liaison for Health Care that is not on file here, please bring a copy the day of surgery. 3. Please shower/bathe the night before surgery with the provided soap or wipes. Do not shower the morning of surgery- you will do use wipes when you arrive here at the hospital before getting into your surgical gown. Do not shave the area of your procedure for 2 days prior to your surgery. 4. NO powder, lotion, perfume/cologne, aftershave, make-up, deodorant, or hair products after you have bathed. 5. NO nail kenyan/acrylic on at least one finger. If you are having a hand, wrist or foot surgery then all nail kenyan and artificial/acrylic nails must be removed from that hand or foot. 6. Avoid ALL Aspirin and non-steroidal anti-inflammatory drugs and certain vitamins (Ibuprofen, Advil, Aleve, Excedrin, Meloxicam, Celebrex, fish/krill oil, etc.) for 7 days prior to surgery as instructed by your surgeon and/or your prescribing doctor. Tylenol IS ALLOWED. If you are on Ticlid, Xarelto, Eliquis, Pradaxa, Plavix or Coumadin, please check with your prescribing doctor for instructions for when to stop them. 7. If you use an inhaler, continue to use it routinely. 8. Nothing to eat or drink (not even water, gum, mints, or hard candy!) AFTER midnight prior to your surgery. 9. Take only medications that you are instructed to on the morning of surgery with a TINY SIP OF WATER. 10. Choose a responsible adult that will be able to drive you home when you are discharged from your hospital stay for your surgery and can stay with you in your home for 24 hours after your procedure. You must NOT drive any vehicle or operate any machinery for 24 hours after surgery. 11. When you dress for your appointment, please wear loose fitting clothing that is appropriate to accommodate your surgical area procedure. BRING WITH YOU ANY DEVICES YOU MAY NEED: FRANCOIS hose, ice machine, sling/swath, brace or special shoe, oversized zip-up or button up shirt, CPAP machine if staying overnight. 12. Do NOT wear jewelry, watches, or any piercings or metal for surgery- leave these valuables and money at home. 13. Do NOT wear contact lenses for surgery- glasses are okay if needed. 14. The anesthesiologist will talk with you the day of surgery and will ask you to sign a Consent Form. 15. Refrain from smoking or any type of tobacco use for at least 8 hours and marijuana for 24 hoursprior to arrival for your surgery. 16. Notify your surgeon if you develop any illness before your surgery. 17. If you are staying overnight, please DO NOT BRING your home medications with you. 18. If you have any questions prior to surgery, please call the Preadmission Testing office at [phone], Mon.-Fri. 7 a.m.-3 p.m. Leave a voicemail if needed. Pre-Surgery Instructions: Medication Instructions acetaminophen (TYLENOL) 325 mg tablet Stop taking 0 days prior to procedure albuterol (PROVENTIL HFA;VENTOLIN HFA) 90 mcg/actuation inhaler Take morning of procedure, as needed amLODIPine (NORVASC) 5 mg tablet Continue as prescribed, take morning of procedure atorvastatin (LIPITOR) 40 mg tablet Stop taking 0 days prior to procedure benzonatate (TESSALON PERLES) 200 mg capsule Stop taking 0 days prior to procedure blood sugar diagnostic (TRUE METRIX GLUCOSE TEST STRIP) strip Stop taking 0 days prior to procedure blood-glucose meter (TRUE METRIX GLUCOSE METER) misc Stop taking 0 days prior to procedure blood-glucose meter,continuous (DEXCOM G7 CHILD WELFARE CASEWORKER) misc Stop taking 0 days prior to procedure blood-glucose sensor (DEXOptinel Systems G7 SENSOR) device Stop taking 0 days prior to procedure buPROPion SR (WELLBUTRIN SR) 150 mg 12 hr tablet Stop taking 0 days prior to procedure clopidogreL (PLAVIX) 75 mg tablet Per Surgeon's instructions dapagliflozin propanediol (FARXIGA) 10 mg tablet Stop taking 3 days prior to procedure enoxaparin (LOVENOX) 100 mg/mL syringe Per Surgeon's instructions fexofenadine (LACHO) 180 mg tablet Stop taking 0 days prior to procedure lancets 30 gauge misc Stop taking 0 days prior to procedure liraglutide (VICTOZA 3-DIANDRA) 0.6 mg/0.1 mL (18 mg/3 mL) pen injector Stop taking 0 days prior to procedure lisinopriL (PRINIVIL,ZESTRIL) 10 mg tablet Stop taking 0 days prior to procedure metFORMIN XR (GLUCOPHAGE XR) 500 mg 24 hr tablet Stop taking 0 days prior to procedure metoprolol tartrate (LOPRESSOR) 100 mg tablet Continue as prescribed, take morning of procedure ondansetron (ZOFRAN) 4 mg tablet Stop taking 0 days prior to procedure pantoprazole (PROTONIX) 40 mg EC tablet Continue as prescribed, take morning of procedure pen needle, diabetic (UNIFINE PENTIPS PLUS) 32 gauge x 5/32 needle Stop taking 0 days prior to procedure spironolactone (ALDACTONE) 25 mg tablet Stop taking 0 days prior to procedure tiZANidine (ZANAFLEX) 4 mg tablet Stop taking 0 days prior to procedure warfarin (COUMADIN) 5 mg tablet Per Surgeon's instructions How to Avoid an Infection after Your Surgery Your doctor will give you specific instructions, but remember: -ALWAYS wash hands before caring for your incision. -No picking, scratching, or rubbing your incision. -No creams, lotion, powder, rubbing alcohol or hydrogen peroxide on the incision (can harm the tissue and slow healing). -Your doctor will give you specific instructions for what type of dressing you will need and how often it will need changed for infection purposes. -No tight clothing on incision. -Do not allow anyone to touch your incision unless they are cleaning, checking, or redressing it (be sure they wash their hands first). -No contact of your incision with pets; avoid sleeping with pets. -Take full course of antibiotic if prescribed for you after surgery- do not stop unless directed cory your physician. You may also be given an antibiotic prior to your surgery to help prevent surgical site infections. -Eat a healthy and varied diet including proteins, fruits, and vegetables to help promote wound healing and keep blood sugars under control if you are diabetic. -Smoking slows the healing process by decreasing the amount of oxygen in your blood that is needed for tissue healing. Try to avoid or stop smoking if possible. LOOK at your incision each morning and each night to check the progress of healing. Some soreness, numbness, itching and/or mild bruising around the incision is normal. Call your doctor if you noticeany of the following: -Increased redness or hardening around the incision area. -Increased pain at the incision site. -Incision feels hot to the touch. -Swelling or pulling apart of the incision edges. -Yellow or green drainage or foul odor coming from the incision. -Bleeding from the incision (apply pressure as needed). -Fever higher than 101 degrees Fahrenheit for more than 4 hours. SHOWERING: Your doctor will give you specific instructions, but remember: -Be careful getting into and out of the shower. -Showers should be quick (5 minutes or less). -Use a clean washcloth to gently wash your incision with soap and water and pat the area dry with aclean towel. -No re-using wash cloths or towels; get a fresh one to clean your incision. -Do not soak in the bathtub, go swimming or use a hot tub (Jacuzzi), or perform activities where your incision is submerged in water or exposed to any fluids or substances until instructed by your doctor. -If your have the sticky strips (steri-strips) over the incision, it is OK to shower with them. Do not remove them. Let them fall off on their own. If you have a question, call your doctor???s office. Go to the follow-up appointment with your doctor. * Perioperative Nursing Note - Vera Alcala RN - 03/14/2025 1:30 PM EST Hibiclens and surgical instructions reviewed. Patient verbalized understanding. Patient was unsure if he should be holding his Plavix, but is currently bridging with Lovenox from Coumadin for his surgery. Message left at Dr Hammond's office to clarify. * Perioperative Nursing Note - Vera Alcala RN - 03/14/2025 1:30 PM EST Kassandra from Dr Hammond's office called and verified that Plavix was to be held for 5 days prior to surgery. She well let Dr Hammond know that it will be more like 3 days as patient was not aware. I called and spoke with patient's and she knows that he is not to take anymore Plavix until after surgery. documented in this encounter Plan of Treatment DateTypeDepartmentCare Team (Latest Contact Info)Escsuuxzixy87/14/2025 8:30 AM ESTHospital Encounter [facility] - Surgery [address] [place] [address] Afsaneh Hammond, DPM [address] [place] [address] 03/17/2025 8:30 AM ESTAnesthesia Event [facility] - Surgery [address] [place] [phone] Naif Mireles, DO [address] [facility] [place] [address] 03/17/2025 8:30 AM EST - 03/17/2025 10:00 AM ESTSurgery [facility] - Surgery [address] [place] [phone] Afsaenh Hammond, DPM [address] [place], [place] [id number] AMPUTATION METATARSAL AND TOE partial 5th ray, wound vac [77915 (CPT??)] 03/20/2025 10:30 AM ESTHospital Encounter [facility] - Cardiac Cath [address] [place] [phone] Mary Beth De Leon MD [address] [place] [address] 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 exposed ([facility])03/20/2025 10:30 AM EST - 03/20/2025 12:30 PM ESTSurgery [facility] [address] [place] [address] Mary Beth De Leon MD [address] [place] [address] Vascular Invasive- Left Lower Extremity Angiogram with possible intervention 03/23/2025 1:15 PM ESTFollow Up Anticoagulation [facility] - Pharmacy Medication Management [address] [place] [address] Yusuf Fletcher MD [address] [facility] [place] [address] 03/28/2025 2:40 PM ESTOffice Visit [facility] [address] [place] [address] Mary Beth De Leon MD [address] [place] [address] 03/29/2025 2:00 PM ESTFollow Up Anticoagulation [facility] - Pharmacy Medication Management [address] [facility] [place] [address] Yusuf Fletcher MD [address] [place] [address] 05/12/2025 1:00 PM ESTClinical Support [facility] - Pharmacy Medication Management [address] [facility] [place] [address] Yusuf Fletcher MD [address] [place] [address] NamePriorityAssociated DiagnosesDate/TimeAMPUTATION 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 Autogenerated Goal Care PlanAutogenerated ProblemNoPotts, Elizabethdocumented as of this encounter Visit Diagnoses Not on filedocumented in this encounter Additional Health Concerns Active ProblemsNoted DateDiagnosed DateAutogenerated Jcwbmvc4203/10/2025ssessment Noted TimePHQ-9 Depression Total Score: 2:03 PM EDTA Body Mass Index follow-up plan has been documented for the uudnrgh6911/13/2017 2:35 PM EDT documented as of this encounter Care Teams Team MemberRelationshipSpecialtyStart DateEnd Date Nathalie Handley APRN-PRODUCE LABORER [address] [place] [address] PCP - GeneralNurse Practitioner09/08/24documented as of this encounter
--- OUTSIDE RECORDS SUMMARY | 2025-03-16 09:08 | XMS_ITS | Continuity of Care Document ---
Author Organization [facility] Address [address] [place] [address] Phone Care Team Providers Care Furnace Clerk Name Role Phone Radha Handley APRN Primary Care Provider Brayan Pennington DO Attending Provider Radha Handley APRN Attending Provider [phone] Care Teams Patient Care Team Team Status: Active Member Role/Relationship Status Dates Rahda Handley APRN [employer]-C Primary Care Provider Active Visit Care Team Team Status: Inactive Member Role/Relationship Status Dates Radha Handley APRN [employer] Primary Care Provider Active Start: February End: February 27, 2025Juakin Pennington DOAttending ProviderActiveStart: February 27, 2025 End: February 27, 2025 Visit Care Team Team Status: Inactive Member Role/Relationship Status Dates Radha Handley APRN [employer] Primary Care Provider Active Start: March End: March 06, 2025Radha Handley APRN [employer] TRUCK LOADER-CAttending ProviderActive Start: March 06, 2025 End: March 06, 2025 Patient Care Team Team Status: Inactive Member Role/Relationship Status Dates Radha Handley APRN [employer] Primary Care Provider Active Start: March 162024 End: March 16, 2025Radha Handley APRN [employer] TR[employer] LOADER-CAttending ProviderActive Start: March 16, 2025 End: March 16, 2025 Chief Complaint and Reason for Visit Chief Complaint Admit Date [facility] RADHA DAMION RT ELBOW PAIN WX February 27, 2025 10:44am Swollen leg, Painful leg March 06 11:37am Med questions March 16, 2025 1:00pm Reason for Visit Admit Date Arthritis of right elbow February 27 10:44am Right elbow pain February 27, 2025 1 0:44am Pain of right lower extremity March 062024 11:37am Right calf pain March 06, 2025 1 1:37am 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 March 06, 2025 11:37am Decreased urine stream March 16 1:00pm Reason for Referral Type Reason(s) Provider Provider Contact Information P rovider Address Start Date Slowing of urinary stream R39.198 - Other difficulties with kozvuxnsovfT73.198 - Other difficulties with micturitionExecutive [address]pi[address] [place] [address]Tyhomtbq 2024 Allergies, Adverse Reactions, Alerts Allergen Type Severity Reaction Last Updated Verified Status cephalexin Allergy Unknown Unknown Reaction March 16, 2025 1:03pm Yes Active doxycycline Adverse Reaction Unknown Diarrhea Novembe r 2024 1:03pm Yes Active Social History Smoking Status Status Start Date End Date Date of Observa tion Smokes tobacco daily (finding) March 06, 2025 9:02am Observation Status Observation Response Date of Response Legal Sex [facility] (finding) [facility] Family History Relationship Condition Age at Onset Recorded Date/T carlos mother Malignant neoplasm of ovary Unknown fatherDeceasedUnknownmotherDeceasedUnknown Problems Active Problems Problem Diagnosis/Recorded Date Onset Date Status C omments Nicotine dependence September 11, 2024 4:43pm Unknown Activ e 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May 2024 4:45pmUnknownActiveHistory of coronary artery bypass graft x 1May 2024 7:51amUnknownActiveMarijuana abuseApril 2021 4:44pmUnknownActiveDecreased urine streamNovember 2024 1:43pmUnknownActiveType 2 diabetes mellitusMay 2024 4:45pmUnknown ActiveAnxietyJune 2024 12:15pmUnknownActiveRight calf painNovember 2024 11:56amUnknownActiveDysphagiaApril 2024 8:01amUnknownActiveSeasonal allergiesAugust 2024 1:49pmUnknownActiveHyperlipidemiaMay 2024 4:43pmUnknownActivePain of right lower extremityNovember 2024 11:56am UnknownActivePre-op evaluationAugust 2024 2:04pmUnknownActiveChronic back painMay 2024 4:46pmUnknownActiveRight elbow painAugust 2024 10:43am UnknownActiveEncounter for screening for lung cancerMay 2024 4:43pmUnknown ActiveHistory of aortic valve replacementMay 2024 4:44pmUnknownActiveGERD (gastroesophageal reflux disease)September 12, 2024 7:56amUnknownActiveHypertension November 25, 2021 12:45pmUnknownActiveCVA (cerebral vascular accident)November 25, 2021 12:44pmUnknownActiveArthritis of right elbowAugust 2024 1:56pmUnknown ActiveInactive/Resolved Problems Problem Diagnosis/Recorded Date Onset Date Status [...] roblem List clean-up [facility] Medications Medication Status Dose Units Route Directions Qty Days Refills S tart Date Stop Date End Date Reason(s) Instructions Adherence Bupropion Hcl (Wellbutrin Sr) 150 mg tablet sustained-release 12 hr Discontinued 150 MG PO Daily 90 90 1 October 10, 2024 11:00pm December 12, 2024 1:33pmAnxiety Anxiety disorder, unspecifiedOndansetron 4 mg tablet,gkbnzhbpriqnjuOsmgwm4ZCUL Q8H as needed for nausea and zfyhrvdx34836Noeboj 2024 11:00pmComplies with drug therapyAtorvastatin 40 mg oumyqdGarvse36VNAAWzlcg diulijl64190Aqlaymhqw 17th, 2025 12:18pmHyperlipidemia Hyperlipidemia, unspecifiedComplies with drug therapyTizanidine 4 mg tablet Mchjxqagsncj9YJMZUbhybkv55297Dfeoyrlss 2024 12:19pmNovember 2024 12:05pmChronic back pain Dorsalgia, unspecified Other chronic painBupropion Hcl (Wellbutrin Sr) 150 mg tablet sustained-release 12 jeKaieosykvnep980WURTAaroo84945Emohnlqab 2024 7:10amOctober 2024 12:31pmAnxiety Anxiety disorder, unspecifiedBupropion Hcl 150 mg tablet sustained-release 12 hr Discontinued0.ROUTE.AADKBFN5147Aizqkxs 2024 12:31pmNovember 2024 11:45amAnxiety Anxiety disorder, unspecifiedTAKE 2 TABLETS BY MOUTH DAILYTramadol 50 mg tablet Khulhz21LOVVXqcqr 8 hours as needed for tyug6894Ugueivsa 5th, 2025 12:00amRight calf pain Pain of right lower extremity Pain in right lower leg Pain in right legComplies with drug therapyAmlodipine 2.5 mg tabletDiscontinued 2.5MGPODailyJuly 2021 11:00pmAugust 2024 1:50pmEscitalopram Oxalate 10 mg sbhtghTbxyvkuyozii81OBQYAdgepDayj 2021 11:00pmMay 2024 1:43pm Enoxaparin (Lovenox) 100 mg/mL LzzkxeqTjjsdmlvmhyw865SFVABDFAQ93ROqtu 2021 11:00pmMay 2024 1:43pmWarfarin 7.5 mg NrjsuaZnfzgazbtqmo7ZKNOQig as DirectedApril 2021 11:00pmApril 2021 9:16am7.5MG takes every Thursday, 5mg PO every other day (////Thu/Thu)Metoprolol Tartrate 100 mg Tablet Ntcncj039RAPSTjoxm qtmcw47795Qtsgw 2021 11:00pmComplies with drug therapy Tizanidine 4 mg ZrbhkpKxbuhvvwecqt0SRZOUudwrgs26388Bevbt 2021 11:00pm January 18, 2025 12:19pmLisinopril 20 mg FnbxncTdczow58OQISQscnn15345Bfxha 2021 11:00pmComplies with drug therapyThiamine Hcl (Vitamin B1) 100 mg PkjjlmQpsbnevbegkg381SRQZStzya24165Cisuh 2021 11:00pmJuly 2021 12:42pmWarfarin (Jantoven) 5 mg QfcucsVgutal7ZTLKRqshm38Fqdrk 2021 11:00pm Complies with drug therapyOmeprazole 20 mg Capsule,Delayed Release(Dr/Ec) Nljuwwprwgsb68YMYLHtuuc wigvs95789Sorfq 2021 11:00pmJuly 2021 12:42pmAtorvastatin 40 mg XjgtclSdlgbxxmpwdk50QHQVQhlei dqatgjw14277Xcpqz 2021 11:00pmSeptember 2024 12:19pmHydrocodone-Acetaminophen 5-325 mg OyrsmrGuzvcplcimsm0HVSYWQ1S as needed for Imov25Aonqd ugust 2024 1:23pmAspirin (Children's Aspirin) 81 mg Tablet,YanmabsvUuwtvg91POLPIjubc31 300April 2021 11:00pmComplies with drug therapyFolic Acid 1 mg Tablet Vdahshlljvoz9NVQFAdxks08129Ymvzs 2021 11:00pmJuly 2021 12:42pm Bacitracin-Polymyxin B 500-10,000 unit/gram GwhkgvphLbyvhhrkmvon6UZVKYGSDE-UAHZO Q4H as needed for Dry Eye(S)29897Qpnxr 2021 11:00pmAugust 2024 1:22pmFexofenadine 180 mg tabletDiscontinuedMGPOAugust 2024 11:00pmAugust 2024 1:50pmGlimepiride 2 mg tabletDiscontinuedMGPOAugust 2024 11:00pm December 12, 2024 2:07pmAmoxicillin-Pot Clavulanate 875-125 mg tablet DiscontinuedTABPOA2024 11:00pmAugust 2024 1:21pmEnoxaparin 100 mg/mL pqulrvzXudlne955ZBEFSOQXIgmfq dailyNov2024 12:00amComplies with drug therapyBenzonatate 200 mg jihpxoeCiezengqfins866OSMKGgdlm times daily September 06, 2024 11:00pmMay 2024 2:41pmBupropion Hcl 150 mg tablet sustained- release 12 wyCfhpijdatymi180WBSCUjvbf dailyMay 2024 11:00pmMay 2024 2:24pmClopidogrel 75 mg otxmftRzgqbq50FOHMLvgqjBys 6th, 2025 11:00pmComplies with drug therapyDapagliflozin Propanediol 10 mg ajydlfXneuqw08LEKPJwnwuSwl 6th, 2025 11:00pmComplies with drug therapyMetformin 500 mg slxuvqSwydxxcudkwk981DVCQ Twice dailyMa2024 11:00pmAugust 2024 1:50pmNicotine 21 mg/24 hr patch 24 ogpjRhmmreclxxub3SZIYFHFANBMQWFGJwfdfKtl 2024 11:00pmAugust 2024 1:23pmPantoprazole 40 mg tablet,delayed release (DR/EC)Xqztyn67UMIQWuymtFhk 6th, 2025 11:00pmComplies with drug therapyUrea 40 % msegpHkdptdrxyamy2EWLBJG TOPICALTwice dailyMa2024 11:00pmAugust 2024 1:23pmBenzonatate 200 mg rffwbjeIihdgaowuzbp089EVOLTbmit times pqter673648Nfh 7th, 2025 2:41pmNov2024 11:40amDysphagia Dysphagia, unspecifiedOmadacycline (Nuzyra) 150 mg vegjacDgbwak735RDUCDuwxg dailyAuunm children's hospital2024 11:00pmComplies with drug therapyBupropion Hcl (Wellbutrin Sr) 150 mg tablet sustained-release 12 zyEsoitqczvbdp306NCVYYgevg23 300un[facility]2024 1:32pmSeptember 2024 7:10amAnxiety Anxiety disorder, unspecifiedFexofenadine 180 mg hdemuyFcewjd468HURMXeaph52139 December 12, 2024 1:48pmSeasonal allergies Other seasonal allergic rhinitisComplies with drug therapyAmlodipine 2.5 mg tabletActive2.3QWZQAhipv61683Dmyjcv 11th, 2025 1:49pmHypertension Essential (primary) hypertensionComplies with drug therapyMetformin 500 mg sjlfyrChnjcj3815TGLHTzqad rptok080879Nrhmly 11th, 2025 1:50pmType 2 diabetes mellitus Type 2 diabetes mellitus without complicationsComplies with drug therapy Spironolactone 25 mg hgfqxeZnqysa14GMTZPuqyzAewkqozv 3rd, 2025 12:00amComplies with drug therapyBupropion Hcl 150 mg tablet sustained-release 12 qgSdquiz693UE PODailyNovember 2024 11:44amAnxiety Anxiety disorder, unspecifiedComplies with drug therapyTizanidine 4 mg tablet Uhyqkg3NZMPTbvss 8 hours as needed for muscle nhilwacabj826604Jeutnnkt 3rd, 2025 12:05pmChronic back pain Dorsalgia, unspecified Other chronic painComplies with drug therapy Immunizations Immunization Event Date Not Given Reason Dose Number Glass Breaker Lot Number Reason(s) Given Vaccine Information Statement (VIS) Detail Administration Location Fluzone TIV High-Dose 65YR+ February 28, 2025 right deltoid Relevant Diagnostic Tests and/or Laboratory Data Laboratory Results Test Collection Date/Time Result Date/Time Result Interpretation Reference Range Result Comment Performing Site Vitamin B12 Level February 27, 2025 11:00am February 022024 11:00am 379 pg/mL [id number] at: [facility] [id number] Director: Shaggy Burris PhD, Phone: [phone] Vital Signs Vital Reading Result Reference Range Collection Date/Time Height 68 [in_i] February 27, 2025 10:52ddJipohp990.32 kgOcttristar [facility] 2024 10:10amBMI (Body Mass Index)34.9 kg/p1Wanzajr 2024 10:99bjNztoqj47 [in_i]March 06, 2025 11:12wnJmhlyh432.96 kgNov2024 11:40amHeart Rate82 /slu66-942DovszrklMarch 06, 2025 11:40amRespiratory rate14 /wqn23-05LlbcfhviMarch 06, 2025 11:40amOxygen saturation by Pulse lohyaecg57 %95-100Nov2024 11:40amBP Glsbesmk638 mm[Hg]100-140Nov2024 11:40amBP Ycjcqmvjb88 mm[Hg]60-100Nov2024 11:40amBMI (Body Mass Index)34.4 kg/v4Xujvgipr2024 11:45qaYxyqvb16 [in_i]March 16, 2025 1:85ipPelkyi725.23 kgNovsierra vista regional [facility] center 2024 1:15pmBody Tiuimwkaqyt45.4 [degF]97.6-99.0Nov2024 1:15pmHeart Rate67 /srx51-577 March 16, 2025 1:15pmOxygen saturation by Pulse %95-100November 2024 1:15pmBP Cnedztyi231 mm[Hg]100-140Nov2024 1:15pmBP Cyytsljyx97 mm[Hg]60-100November 2024 1:15pmBMI (Body Mass Index)35.2 kg/z1Tkkrdtyd2024 1:15pm Advance Directives Advance Directive Response Recorded Date/ Time Advance Directives No March 06, 2025 9:02am Insurance Providers Guarantor Jorge Ojeda Address [address] [id number] Info.Home Phone: Coverage Status Update:2024 Payer Group Member ID Coverage Type Subscriber Relationship to Subscriber Effective Date Expiration Date [facility] Medicaid [id number] Barger , D Id: [id number] [address] [place] [address] [address] [facility] [address] Home Phone: Email: [email or web address] Unknown Id: [id number] Barger , D Id: [id number] [address] [place] [address] [address] [facility] [address] Home Phone: Email: [email or web address] Encounters Encounter Location(s) Arrival/Admit Date Discharge/Departure Date Discharge/Departure Disposition Provider(s) Departed Physician/ Provider Office Visit -[facility] [place] February 27, 2025 10:44am February 27, 2025 11:38am Discharged to home care or self care (routine discharge) Brayan Pennington DO Departed Physician/ Provider Office Visit -[facility] March 06, 2025 11:37am March 06, 2025 12:05pm Discharged to home care or self care (routine discharge) Radha Handley APRN CNP Departed Physician/ Provider Office Visit -[facility] March 16, 2025 1:00pm March 16, 2025 2:07pm Discharged to home care or self care (routine discharge) Radha Handley APRN CNP Recent Diagnosis Onset Date Admit Date Arthritis of right elbow Unknown February 27, 2025 10:44am Right elbow pain Unknown February 27, 025 10:44am Pain of right lower extremity Unknown No vem5 11:37am Right calf pain Unknown March 06 11:37am 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 At this juncture we have discussed the findings and diagnosis as well as personally reviewed appropriate imaging and performed interpretation of related testing and examination with the patient in office today. Prior medical notes from Radha Handley APRN, [employer]ADER-C and history have been reviewed. Based on [...] MRI information sheet to be done at [place]. Patient is to follow up after MRI. Note scribed by JOSTIN Crawford, reviewed and amended by myself Brayan Pennington D.O. Author Radha Handley [facility] 2024 1:25pmDiscussed with pt and would need an ultrasound of the lower extremity to rule out DVT. Called [facility] and will have him come over now for ultrasound. Discussed with pt and will call with results and further recommendations. Pt and verbalizes understanding. handicap placard given. Following with podiatry for foot ulcer Future Tests Future scheduled test information is [...] are unavailable Hospital Discharge Instructions Ambulatory Orders* Referral to Urology Time Frame: 03/16/25, Location: None Selected
--- OUTSIDE RECORDS SUMMARY | 2025-03-16 14:25 | XMS_ITS | Encounter Summary ---
Author Organization [facility] Address [facility] [address] [place] [address] Care Team Providers Care Pipe Roller Name Role Phone Nathalie Handley Primary Care Provid er Encounter Details DateTypeDepartmentCare Team (Latest Contact Info)Gbkyerqzrmq91/12/2025Results Follow-Up [facility] [address] [place] [address] Barb Wang RN Basic Metabolic Panel, CBC without diff Social History Tobacco UseTypesPacks/DayYears UsedDateSmoking Tobacco: Every VrvNrzuluxaij545.9 Started: 1974Smokeless Tobacco: NeverAlcohol UseStandard Drinks/WeekCommentsNot Currently2 (1 standard drink = 0.6 oz pure alcohol)history of alcohol abuseAHC UtilitiesAnswerDate RecordedIn the past 12 months has the [employer] gas, oil, or water [employer] threatened to shut off services in your home?No07/21/2023Social Connection and Isolation PanelAnswerDate RecordedIn a typical week, how many times do you talk on the phone with family, friends, or neighbors?Once a week 05/09/2022How often do you get together with friends or relatives?Once a week 05/09/2022How often do you attend scientology or lutheran services?Never3Do you belong to any clubs or organizations such as scientology groups, unions, fraternal or athletic groups, or school groups?No05/09/2022How often do you attend meetings of the clubs or organizations you belong to?Never05/09/2022re you , , , , never , or living with a partner?Fozqaiu8605/09/2022Overall Financial Resource Strain (CARDIA)AnswerDate RecordedHow hard is it for you to pay for the very basics like food, housing, medical care, and heating?Not hard at all05/09/2022HQ-2AnswerDate RecordedTotal Hxsnk024Finsteward health care system [place] of Occupational Health - Occupational Stress QuestionnaireAnswerDate [...] part of a household?07/21/2023hildcareAnswerDate RecordedDo problems getting childhood development teacher make it 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 for you to work [...] and direction in my life.Neither Agree nor Tbtfzwdv97/06/2023EducationAnswerDate RecordedWhat is the highest level of school you have completed or the highest degree you have received?11th grade04/30/2020Sex and Gender InformationValueDate RecordedSex Assigned at CjutjIoam77/13/2020 6:23 PM EDTLegal GleXnpi0212/07/2014 11:22 AM EDT Gender PktzlohtPtta00/13/2020 6:23 PM EDTSexual BuzcpgzsogeKuptlwiy60/13/2020 6:23 PM EDTdocumented as of this encounter Plan of Treatment DateTypeDepartmentCare Team (Latest Contact Info)Xctofpwnild37/14/2025 8:30 AM ESTHospital Encounter [facility] [address] [place] [phone] Afsaneh Hammond, DPM [address] [place] [address] 03/17/2025 8:30 AM ESTAnesthesia Event [facility] [address] [place] [phone] Naif Mireles, DO [address] [facility] [place] [address] 03/17/2025 8:30 AM EST - 03/17/2025 10:00 AM ESTSurgery [facility] [address] [place] [phone] Afsaneh Hammond, DPM [address] [place] [address] AMPUTATION METATARSAL AND TOE partial 5th ray, wound vac [[id number] (CPT??)] 03/20/2025 10:30 AM ESTHospital Encounter [facility] [address] [place] [address] Mary Beth De Leon MD [address] [place] [address] 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 exposed ([facility])03/20/2025 10:30 AM EST - 03/20/2025 12:30 PM ESTSurgery [facility] [address] [place] [address] Mary Beth De Leon MD [address] [place] [address] Vascular Invasive- Left Lower Extremity Angiogram with possible intervention 03/23/2025 1:15 PM ESTFollow Up Anticoagulation [facility]ication [facility] [address] [place] [address] Yusuf Fletcher MD [address] [place] [address] 03/28/2025 2:40 PM ESTOffice Visit [facility] [address] [place] [address] Mary Beth De Leon MD [address] [place] [address] 03/29/2025 2:00 PM ESTFollow Up Anticoagulation [facility] [address] [place] [address] Yusuf Fletcher MD [address] [place] [address] 05/12/2025 1:00 PM ESTClinical Support [facility] [address] [place] [address] Yusuf Fletcher MD [facility] [facility], [address] [place] [address] NamePriorityAssociated DiagnosesDate/TimeAMPUTATION METATARSAL AND TOE left foot [...] Additional Health Concerns Active ProblemsNoted DateDiagnosed DateAutogenerated Nfdzqqb70/07/2025Assessment Noted TimePHQ-9 Depression Total Score: 2:03 PM EDTA Body Mass Index follow-up plan has been documented for the vbwqwiu6711/13/2017 2:35 PM EDT documented as of this encounter Care Teams Team MemberRelationshipSpecialtyStart DateEnd Date Nathalie Handley APRN-[facility] [employer] [address] [place] [address] PCP - GeneralNurse Practitioner09/08/24documented as of this encounter
--- OUTSIDE RECORDS SUMMARY | 2025-03-16 14:25 | XMS_ITS | Encounter Summary ---
Author Organization [facility] tem Address [facility] [place]-[id number] [address] [place] [address] Care Team Providers Care Dag Coater Name Role Phone Nathalie Handley Primary Care Provid er Encounter Details DateTypeDepartmentCare Team (Latest Contact Info)Vkxyuwbqxsw64/11/2025Travel Social History Tobacco UseTypesPacks/DayYears UsedDateSmoking Tobacco: Every AgtBfnoypklnv628.9 Started: 1974Smokeless Tobacco: NeverAlcohol UseStandard Drinks/WeekCommentsNot Currently2 (1 standard drink = 0.6 oz pure alcohol)history of alcohol abuseAHC UtilitiesAnswerDate RecordedIn the past 12 months has the electric, gas, oil, or water [employer] threatened to shut off services in your home?No07/21/2023Social Connection and Isolation PanelAnswerDate RecordedIn a typical week, how many times do you talk on the phone with family, friends, or neighbors?Once a week 05/09/2022How often do you get together with friends or relatives?Once a week 05/09/2022How often do you attend episcopal or shinto services?Never3Do you belong to any clubs or organizations such as episcopal groups, unions, fraternal or athletic groups, or school groups?No05/09/2022How often do you attend meetings of the clubs or organizations you belong to?Never3Are you , , , , never , or living with a partner?Bkpvyto5005/09/2022Overall Financial Resource Strain (CARDIA)AnswerDate RecordedHow hard is it for you to pay for the very basics like food, housing, medical care, and heating?Not hard at all05/09/2022HQ-2AnswerDate RecordedTotal Zorav428Finbeaver valley hospital [facility] of Occupational Health - Occupational Stress QuestionnaireAnswerDate [...] of a household?No07/21/2023hildcareAnswerDate RecordedDo problems getting 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 daycare 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 for you to work [...] and direction in my life.Neither Agree nor Cnmsqzmu61/06/2023EducationAnswerDate RecordedWhat is the highest level of school you have completed or the highest degree you have received?11th grade04/30/2020Sex and Gender InformationValueDate RecordedSex Assigned at QxarfQvih15/13/2020 6:23 PM EDTLegal WrdFstz8012/07/2014 11:22 AM EDT Gender VljqwegxGcwl10/13/2020 6:23 PM EDTSexual AkppaxvsnaiSygrfbvi51/13/2020 6:23 PM EDTdocumented as of this encounter Plan of Treatment DateTypeDepartmentCare Team (Latest Contact Info)Bdfjbouaoid86/14/2025 8:30 AM ESTHospital Encounter [facility] Surgery [address] [place] [address] Afsaneh Hammond, DPM [address] [place], [place] [address] 03/17/2025 8:30 AM ESTAnesthesia Event [facility] Surgery [address] [place] [address] Naif Mireles, DO [address] [facility], [place] [id number] 03/17/2025 8:30 AM EST - 03/17/2025 10:00 AM ESTSurgery [facility] [address] [place] [address] Afsaneh Hammond, DPM [address] [place], [place] [id number] AMPUTATION METATARSAL AND TOE partial 5th ray, wound vac [27622 (CPT??)] 03/20/2025 10:30 AM ESTHospital Encounter [facility] - Cardiac Cath [address] [facility] [place] [address] Mary Beth De Leon MD [address] [place] [address] 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 exposed ([facility])03/20/2025 10:30 AM EST - 03/20/2025 12:30 PM ESTSurgery [facility] - [facility] [address] [place] [address] Mary Beth De Leon MD [address] [place] [address] Vascular Invasive- Left Lower Extremity Angiogram with possible intervention 03/23/2025 1:15 PM ESTFollow Up Anticoagulation [facility] - Pharmacy Medication Management [address] [place] [address] Yusuf Fletcher MD [address] [place] [address] 03/28/2025 2:40 PM ESTOffice Visit [facility] [address] [place] [address] Mary Beth De Leon MD [address] [place] [address] 03/29/2025 2:00 PM ESTFollow Up Anticoagulation [facility] - Pharmacy Medication Management [address] [place] [address] Yusuf Fletcher MD [address] [place] [address] 05/12/2025 1:00 PM ESTClinical Support [facility] - Pharmacy Medication Management [address] [place] [address] Yusuf Fletcher MD [address] [facility], [address] [place] [address] NamePriorityAssociated DiagnosesDate/TimeAMPUTATION METATARSAL AND TOE left foot [...] Additional Health Concerns Active ProblemsNoted DateDiagnosed DateAutogenerated Njzfhpu28/07/2025Assessment Noted TimePHQ-9 Depression Total Score: 2:03 PM EDTA Body Mass Index follow-up plan has been documented for the wusbuvl1011/13/2017 2:35 PM EDT documented as of this encounter Care Teams Team MemberRelationshipSpecialtyStart DateEnd Date Nathalie Handley APRN-CAITY [address] [place] [address] PCP - GeneralNurse Practitioner09/08/24documented as of this encounter
--- OUTSIDE RECORDS SUMMARY | 2025-03-16 14:25 | XMS_ITS | Patient Health Record ---
Author Organization [facility] [place] Address [address] [place] [address] Care Team Providers Care Environmental Department Manager Name Role Phone Chino Harmon MD Primary Care Provider Unavail able Reason For Referral No Information Plan Of Treatment No Information Insurance Providers Payer Name Payer Address Payer Phone Subscriber Number Group Number Insured Name Patient Relationship to Insured Coverage Start Date Coverage End Date SELF PAY ON PATIENT DEMOGRAPHICS Carolynn Andreelf - patient is the trhpsjf3908/03/2011
--- OUTSIDE RECORDS SUMMARY | 2025-03-16 14:25 | XMS_ITS | Encounter Summary ---
Author Organization [facility] tem Address [facility] [place] [id number] [address] [place] [address] Care Team Providers Care Semiconductor Packages Sealer Name Role Phone Nathalie Handley Primary Care Provid er Reason for Visit * ReasonOnset DateCommentsSurgical Or Dental Jijdykkdr60/10/2025 Encounter Details DateTypeDepartmentCare Team (Latest Contact Info)Muallzcxrre44/10/2025Telephone [facility] [address] [place] [phone] Sil Lucas LPN Surgical Or Dental Clearance Social History Tobacco UseTypesPacks/DayYears UsedDateSmoking Tobacco: Every WbwIrweudjcvk705.9 Started: 1974Smokeless Tobacco: NeverAlcohol UseStandard Drinks/WeekCommentsYes2 (1 standard drink = 0.6 oz pure alcohol)history of alcohol abuseAHC Utilities AnswerDate RecordedIn the past 12 months has the [employer], gas, oil, or water [employer] threatened to shut off services in your home?No07/21/2023Social Connection and Isolation PanelAnswerDate RecordedIn a typical week, how many times do you talk on the phone with family, friends, or neighbors?Once a week 05/09/2022How often do you get together with friends or relatives?Once a week 05/09/2022How often do you attend orthodox or taoism services?Never3Do you belong to any clubs or organizations such as orthodox groups, unions, fraternal or athletic groups, or school groups?No05/09/2022How often do you attend meetings of the clubs or organizations you belong to?Never05/09/2022re you , , , , never , or living with a partner?Pwrpuvt7605/09/2022Overall Financial Resource Strain (CARDIA)AnswerDate RecordedHow hard is it for you to pay for the very basics like food, housing, medical care, and heating?Not hard at all05/09/2022HQ-2AnswerDate RecordedTotal Wonaf962Finspanish fork hospital [place] of Occupational Health - Occupational Stress QuestionnaireAnswerDate [...] a household?No07/21/2023hildcareAnswerDate RecordedDo problems getting child welfare counselor make it difficult for you to work [...] and direction in my life.Neither Agree nor Dmunkiid13/06/2023EducationAnswerDate RecordedWhat is the highest level of school you have completed or the highest degree you have received?11th grade04/30/2020Sex and Gender InformationValueDate RecordedSex Assigned at CyqjoPjhk95/13/2020 6:23 PM EDTLegal UkgFfhz8012/07/2014 11:22 AM EDT Gender OpwoesrhKbds23/13/2020 6:23 PM EDTSexual NhlsiuanxqjLezoybkg89/13/2020 6:23 PM EDTdocumented as of this encounter Miscellaneous Notes * Telephone Encounter - Sil Lucas LPN - 03/13/2025 10:47 AM EST Surgeon: Dr Hammond Type of surgery: lt foot partial 5th toe amputation Date of surgery: 03/17/25 Surgery location: [place] Type of anesthesia: MAC On a blood thinner?: Warfarin Indication: AVR On an antiplatelet?: Plavix Stent? no Date of last EK09/06/24 who they saw: 02/28/25 LLD Their preference of how long to hold blood thinners/antiplatelet: 5-7 days prior to procedure History of CVA/TIA, DVT/PE? CVA * Telephone Encounter - Abdiaziz Sutton DO - 03/13/2025 10:47 AM EST Moderate non prohibitive risk from a CV standpoint. Okay to hold warfarin and Plavix for 5 days prior to the surgery. [facility] protocol will be required given mechanical valve. Please resume warfarin and Plavix afterwards when considered safe/stable to do so. Same INR goal as now Thank you * Telephone Encounter - Sil Lucas LPN - 03/13/2025 10:47 AM EST Faxed surgery clearance to Dr Hammond documented in this encounter Plan of Treatment DateTypeDepartmentCare Team (Latest Contact Info)Mfqmpaqltuq51/14/2025 8:30 AM ESTHospital Encounter [facility] Surgery [address] [place] [address] Afsaneh Hammond, DPM [address] [place], [place] [address] 03/17/2025 8:30 AM ESTAnesthesia Event [facility] - Surgery [address] [place] [place] [address] Naif Mireles, DO [address] [place] [address] 03/17/2025 8:30 AM EST - 03/17/2025 10:00 AM ESTSurgery [facility] - Surgery [address] [facility] [place] [address] Afsaneh Hammond, DPM [address] [place] [address] AMPUTATION METATARSAL AND TOE partial 5th ray, wound vac [[id number] (CPT??)] 03/20/2025 10:30 AM ESTHospital Encounter [facility] [address] [place] [address] Mary Beth De Leon MD [address] [place] [address] 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 exposed ([facility])03/20/2025 10:30 AM EST - 03/20/2025 12:30 PM ESTSurgery [facility] [address] [place] [address] Mary Beth De Leon MD [address] [place] [address] Vascular Invasive- Left Lower Extremity Angiogram with possible intervention 03/23/2025 1:15 PM ESTFollow Up Anticoagulation [facility] - Pharmacy Medication Management [address] [place] [address] Yusuf Fletcher MD [address] [employer], [address] [place] [address] 03/28/2025 2:40 PM ESTOffice Visit [facility] [address] [place] [address] Mary Beth De Leon MD [address] [place] [address] 03/29/2025 2:00 PM ESTFollow Up Anticoagulation [facility] - Pharmacy Medication Management [address] [place] [address] Yusuf Fletcher MD [address], [address] [place] [address] 05/12/2025 1:00 PM ESTClinical Support [facility] - Pharmacy Medication Management [address] [place] [address] Yusuf Fletcher MD [address] [employer] [address], [address] [place] [address] NamePriorityAssociated DiagnosesDate/TimeAMPUTATION METATARSAL AND TOE left foot [...] Additional Health Concerns Active ProblemsNoted DateDiagnosed DateAutogenerated Ikuayuw7603/10/2025ssessment Noted TimePHQ-9 Depression Total Score: 2:03 PM EDTA Body Mass Index follow-up plan has been documented for the zgjmtgx4511/13/2017 2:35 PM EDT documented as of this encounter Care Teams Team MemberRelationshipSpecialtyStart DateEnd Date Nathalie Handley APRN-CAITY [address] [place] [address] PCP - GeneralNurse Practitioner09/08/24documented as of this encounter
--- OUTSIDE RECORDS SUMMARY | 2025-03-16 14:25 | XMS_ITS | Encounter Summary ---
Author Organization [facility] tem Address [facility] [place]-[id number] [address] [place] [address] Care Team Providers Care Operations Developer Name Role Phone Nathalie Handley Primary Care Provid er Encounter Details DateTypeDepartmentCare Team (Latest Contact Info)Zbloeslifpy76/05/2025Telephone [facility] [address] [place] [address] Lurdes Amaro, RN Social History Tobacco UseTypesPacks/DayYears UsedDateSmoking Tobacco: Every TpzMtxpbzxfhi451.9 Started: 1974Smokeless Tobacco: NeverAlcohol UseStandard Drinks/WeekCommentsYes2 (1 [...] a week 05/09/2022How often do you attend anabaptism or orthodox services?Never3Do you belong to any clubs or organizations such as anabaptism groups, unions, fraternal or athletic groups, or school groups?No05/09/2022How often do you attend meetings of the clubs or organizations you belong to?Never05/09/2022re you , , , , never , or living with a partner?Vpoxqfz0205/09/2022Overall Financial Resource Strain (CARDIA)AnswerDate RecordedHow hard is it for you to pay for the very basics like food, housing, medical care, and heating?Not hard at all05/09/2022HQ-2AnswerDate RecordedTotal Jeurz972Finheber valley medical center [place] of Occupational Health - Occupational Stress QuestionnaireAnswerDate [...] of a household?No07/21/2023hildcareAnswerDate RecordedDo problems getting child care assistant make it difficult for you to [...] and direction in my life.Neither Agree nor Xdnstfon95/06/2023EducationAnswerDate RecordedWhat is the highest level of school you have completed or the highest degree you have received?11th grade04/30/2020Sex and Gender InformationValueDate RecordedSex Assigned at HwpdlYlog42/13/2020 6:23 PM EDTLegal WlwYnir4912/07/2014 11:22 AM EDT Gender IwuikkezFtia02/13/2020 6:23 PM EDTSexual GykurdmyajeTspzkobn25/13/2020 6:23 PM EDTdocumented as of this encounter Miscellaneous Notes * Telephone Encounter - Lrudes Amaro RN - 03/08/2025 1:49 PM EST stopped by [place] office. Saw Dr. BUSTAMANTE 02/28/25. 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 wants to know if pt needs to continue spironolactone. Will message Dr. BUSTAMANTE for advice * Telephone Encounter - Naty Patino MD - 03/08/2025 1:49 PM EST Aldactone was prescribed for chronic heart failure and hypertension as well as lower extremity edema, which was bilateral on my exam. Recommend continuing Aldactone at this time * Telephone Encounter - Lurdes Amaro RN - 03/08/2025 1:49 PM EST LM on 's phone w/ response documented in this encounter Plan of Treatment DateTypeDepartmentCare Team (Latest Contact Info)Ssqfvftlyvj01/14/2025 8:30 AM ESTHospital Encounter [facility] Surgery [address] [place] [address] Afsaneh Hammodn, DPM [address] [place] [address] 03/17/2025 8:30 AM ESTAnesthesia Event [facility] Surgery [address] [place] [address] Naif Mireles, DO [address] [facility] [address] 03/17/2025 8:30 AM EST - 03/17/2025 10:00 AM ESTSurgery [facility] Surgery [address] [facility] [address] Afsaneh Hammond, DPM [address] [place] [address] AMPUTATION METATARSAL AND TOE partial 5th ray, wound vac [[id number] (CPT??)] 03/20/2025 10:30 AM ESTHospital Encounter [facility] Cardiac Cath [address] [place] [address] Mary Beth De Leon MD [address] [place] [address] 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 exposed ([facility])03/20/2025 10:30 AM EST - 03/20/2025 12:30 PM ESTSurgery [facility] Card[facility] Cath [address] [place] [address] Mary Beth De Leon MD [address] [place] [address] Vascular Invasive- Left Lower Extremity Angiogram with possible intervention 03/23/2025 1:15 PM ESTFollow Up Anticoagulation [facility] - Pharmacy Medication Management [address] [place] [address] Yusuf Fletcher MD [address] [place] [address] 03/28/2025 2:40 PM ESTOffice Visit [facility] [address] [place] [address] Mary Beth De Leon MD [address] [place] [address] 03/29/2025 2:00 PM ESTFollow Up Anticoagulation [facility] - Pharmacy Medication Management [address] [place] [address] Yusuf Fletcher MD [address] [place] [address] 05/12/2025 1:00 PM ESTClinical Support [facility] - Pharmacy Medication Management [address] [place] [address] Yusuf Fletcher MD [address] [place] [address] NamePriorityAssociated DiagnosesDate/TimeAMPUTATION METATARSAL AND TOE left foot ulcer with bone necrosis, acute osteomyelitis 03/17/2025 8:30 AM ESTdocumented as of this encounter Goals GoalPatient Goal TypeAssociated ProblemsRecent ProgressPatient-Stated?Author <enter goal here> Doris Hnadley RN Note: Evaluation of progress towards goal: patient progressing toward safe discharge. documented as of this encounter Visit Diagnoses Not on filedocumented in this encounter Additional Health Concerns AssessmentNoted TimePHQ-9 Depression Total Score: 2:03 PM EDTA Body Mass Index follow-up plan has been documented for the ijsevyd6611/13/2017 2:35 PM EDTdocumented as of this encounter Care Teams Team MemberRelationshipSpecialtyStart DateEnd Date Nathalie Handley APRN-DELINQUENT ACCOUNT CLERK [address] [place] [address] PCP - GeneralNurse Practitioner09/08/24documented as of this encounter
--- OUTSIDE RECORDS SUMMARY | 2025-03-16 14:25 | XMS_ITS | Clinical Summary ---
Author Organization [facility] Address [address] [place] [address] Care Team Providers Care Director Global Medical Affairs Name Role Phone Jose Garner DO Primary Care Provider [phone] Allergies Active AllergyReactionsCriticalityNoted DateCommentsCephalexinHivesHigh 02/16/2019ClindamycinGI fuuoatswoan02/03/4145PmeiqgizlwbWpjsbwle24/25/2022 Medications MedicationSigDispense QuantityRefillsLast FilledStart DateEnd DateStatus amLODIPine [...] every 6 (six) hours if needed for uiazuxek75/08/2024ctive clopidogrel (Plavix) 75 MG tablet Take 75 mg by mouth Daily05/13/2023ctive Continuous Blood Gluc [employer] (Dexcom G7 [employer]) device 07/31/2023ctive Continuous Blood Gluc Sensor (Dexcom G7 Sensor) misc 07/29/2023ctive Docusate Sodium (DSS) 100 MG capsule Take 100 mg by mouth in the morning and 100 mg in the evening.Active hydrOXYzine HCl (Atarax) 25 MG tablet Take 25 mg by mouth in the morning.08/07/2023ctive metFORMIN (Glucophage) 500 MG tablet Take 250 mg by mouthActive Wound Dressings ([facility] wound/burn) gel Indications:Ulcer of right foot with fat layer exposed (HCC)Apply 1 application topically Daily 44 mL 4Active Liraglutide (VICTOZA SC) Inject under the skinActive omadacycline (Nuzyra) 150 MG tablet tablet Indications:Ulcer of foot with muscle involvement without evidence of necrosis, unspecified laterality (HCC),Infection of skin and subcutaneous tissueTake 3 tablets on day 1 and day 2, then take 2 tablets daily for days 3-14 34 tablet 5Active sulfamethoxazole-trimethoprim (Bactrim DS) 800-160 MG per tablet Indications:Infection of skin and subcutaneous tissue,Ulcer of left foot with fat layer exposed (HCC)Take 1 tablet by mouth every 12 (twelve) hours 20 tablet 5ActiveHospital, Clinic, or Other Facility Administered Medication Ordered DoseRouteFrequencyStart DateEnd DateStatus Gadopiclenol solution 10 mL Indications: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)10 mLIVOnce in imaging 5105/09/2024Ended Active Problems ProblemNoted DateDiagnosed DaclKgvflnyzdyaxmo47/02/2024Ischemic cyeiic2109/03/2023 Essential nwdmayydnvju77/02/2024lcohol abuse09/03/2023Unspecified atrial /02/2024aytime aosjzyhziielrgf55/02/2024OSA (obstructive sleep apnea)09/03/2023 Encounters DateTypeDepartmentCare GlynIykqnduzszw50/06/2025 4:00 PM ESTOffice Visit [facility] [address] [place] [phone] Afsaneh Hammond, DPM 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) (Primary Dx); Type II or unspecified type diabetes mellitus with neurological manifestations, not stated as uncontrolled(250.60) (HCC); Acute osteomyelitis of left foot (HCC); Blister of second toe of left foot, initial encounter; Blister of left great toe, initial pbeeypnqo31/06/2025 10:30 AM ESTAncillary Procedure [facility] [address] [place] [address] 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) (Primary Dx)03/09/2025Travel 03/07/2025Telephone [facility] acute hospital Podiatry [address] [place] [address] Kassandra Sotelo MA medication denial (Ricardazyra was denied by pts insurance, I spoke with the pt and per Dr. Hammond we will send in Bactrim to pts pharm. )02/28/2025 4:15 PM EDT [facility] [address] [place] [address] 02/28/2025 3:45 PM EDTOffice Visit [facility] acute hospital Podiat[facility] [address] [place] [address] Afsaneh Hammond, DPM Infection of skin and subcutaneous tissue (Primary Dx); Ulcer of foot with muscle involvement without evidence of necrosis, unspecified laterality (HCC); Type II or unspecified type diabetes mellitus with neurological manifestations, not stated as uncontrolled(250.60) (HCC); Status post amputation of lesser toe of right foot (HHS-HCC)02/28/2025amboo flowsheet [facility] acute hospital Podiatry [address] [place] [address] Afsaneh Hammond, DPM 02/28/20250978Lwoklt92/09/2025 5:40 PM EDTAncillary Procedure [facility] acute hospital Podiatry [address] [place] [address] 02/09/2025 4:00 PM EDTOffice Visit [facility] [address] [place] [address] Afsaneh Hammond, DPM Ulcer of left foot with fat layer exposed (HCC) (Primary Dx); Status post amputation of lesser toe of right foot (HHS-HCC); Type II or unspecified type diabetes mellitus with neurological manifestations, not stated as uncontrolled(250.60) ([facility])5Bamboo flowsheet General acute hospital Podiatry [address] [place] [address] Afsaneh Hammond, DPM 02/09/20259730Ipbsgr26/08/9234Yunobh64/25/2025 3:45 PM EDTOffice Visit [facility] acute hospital Podiatry [address] [place] [address] Afsaneh Hammond, DPM Status post amputation of lesser toe of right foot ([facility]) (Primary Dx); Type II or unspecified type diabetes mellitus with neurological manifestations, not stated as uncontrolled(250.60) ([facility]); Ulcer of left foot with fat layer exposed ([facility]); Alvktapapzuap68/25/6386Zfboqi84/11/2025 3:45 PM EDTOffice Visit [facility] acute hospital Podiatry [address] [place] [address] Afsaneh Hammond, DPM Dehiscence of amputation stump of right lower extremity ([facility]) (Primary Dx); Status post amputation of lesser toe of right foot ([facility]); Type II or unspecified type diabetes mellitus with neurological manifestations, not stated as uncontrolled(250.60) ([facility])01/12/2025[facility] flowsheet General acute hospital Podiatry [address] [place] [address] Afsaneh Hammond, DPFransisco 01/12/20258422Hhqsve67/10/3159Rqugwg19/04/2025 4:00 PM EDTOffice Visit [facility] acute hospital Podiatry [address] [place] [address] Afsaneh Hammond, DPM Status post amputation of lesser toe of right foot ([facility]) (Primary Dx); Dehiscence of amputation stump of right lower extremity ([facility]); Type II or unspecified type diabetes mellitus with neurological manifestations, not stated as uncontrolled(250.60) ([facility]); Ulcer of left foot with fat layer exposed ([facility])01/05/2025[facility] flowsheet General acute hospital Podiatry [address] [place] [address] Afsaneh Hammond DPM 01/05/20250249Rqbxvo66/03/4109Kxwmko15/02/0865Czasjs61/28/2025 9:00 AM EDTOffice Visit [facility] acute hospital Podiatry [address] [place] [address] Afsaneh Hammond, DPM Cellulitis of right foot (Primary Dx); Amputation of fifth toe of right foot; Dehiscence of amputation stump of right lower extremity (HCC); 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); Infection of skin12/29/2024[facility] flowsheet General acute hospital Podiatry [address] [place] [address] Afsaneh Hammond DPM 12/29/20243845Tfysmu08/27/8332Zydszo80/21/2025 5:20 PM EDTAncillary Procedure [facility] acute hospital Podiatry [address] [place] [address] 12/22/2024 4:00 PM EDTOffice Visit [facility] [address] [place] [address] Afsaneh Hammond, DPM Other acute osteomyelitis of right foot (HCC) (Primary Dx); 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); Type II or unspecified type diabetes mellitus with neurological manifestations, not stated as uncontrolled(250.60) (HCC); Ulcer of left foot with fat layer exposed (HCC); Status post amputation of lesser toe of right foot ([facility])12/22/2024[facility] flowsheet General acute hospital Podiatry [address] [place] [address] Afsaneh Hammond, DPM 12/22/20247383Vscmqc01/20/2025Travelfrom Last 3 Months Immunizations ImmunizationAdministration DatesNext DuePfizer [...] InformationValueDate RecordedSex Assigned at Not on fileLegal HfySsvo3312/30/2022 2:14 PM EDTGender IdentityNot on fileSexual OrientationNot on file Last Filed Vital Signs Vital SignReadingTime TakenCommentsBlood Spnzyqmr062/8305 3:05 PM EDT Dsqnh325809/03/2023 3:05 PM ZMSXpwxecysqem76.7 ??C (98 ??F)02/28/2025 3:52 PM EDT Respiratory Rate--Oxygen Saturation--Inhaled Oxygen Concentration--Sfezkp771 kg (226 lb)03/09/2025 4:23 PM NICKdhulq664.8 cm (5' 10 )03/09/2025 4:23 PM ESTBody Mass Index32.43105/09/2024 4:23 PM EST Plan of Treatment DateTypeDepartmentCare Team (Latest Contact Info)Hsrqfdfsfib64/18/2025 1:15 PM ESTOffice Visit [facility] [address] [place] [address] Afsaneh Hammond, DPM [address] [place], [place] [address] 03/28/2025 1:15 PM ESTOffice Visit [facility] [address] [place] [address] Afsaneh Hammond, DPM [address] [place] [address] 04/06/2025 2:30 PM ESTOffice Visit [facility] [address] [place] [address] Afsaneh Hammond, DPM [address] [place] [address] 04/13/2025 3:30 PM ESTOffice Visit [facility] [address] [place] [address] Afsaneh Hammond, DPM [address] [place] [address] 04/20/2025 3:00 PM ESTOffice Visit [facility] [address] [place] [address] Afsaneh Hammond, DPM [address] [place] [address] 04/25/2025 3:00 PM ESTOffice Visit [facility] [place] [facility] [address] [place] [address] Afsaneh Hammond, DPM [address] [place] [address] 05/02/2025 3:00 PM ESTOffice Visit [facility] [place] [facility] [address] [place] [address] Afsaneh Hammond, DPM [address] [place] [address] 05/11/2025 3:15 PM ESTOffice Visit [facility] acute hospital Podiatry [address] [place] [address] Afsaneh Hammond, DPM [address] [place], [place] [address] 05/30/2025 4:00 PM ESTProcedure Visit [facility] acute hospital Podiatry [address] [place] [address] Afsaneh Hammond, DPM [address] [place], [place] [address] Health MaintenanceDue DateLast DoneCommentsCT Ocvhcualcplh86/15/1962FIT 1961 4499Ejqcqiyhvfbif94/15/1962FIT-DNA/09/20184929DMXI34/31/2023 2COVID-19 Vaccine ( season)501/09/2021, 10/23/2020, 10/02/20207286Ibbkgdzgqjg10Colorectal Cancer Mxaijeiuj66/04/2029 Influenza VcbvtgqZistsuknd88/28/2025Pneumococcal Vaccine: Pediatrics (0 to 5 Years) and At-Risk Patients (6 to 64 Years)Aged OutNo longer eligible based on patient's age to complete this topic Procedures Procedure NamePriorityDate/TimeAssociated DiagnosisCommentsMR FOOT LEFT W AND WO IV QVBWTJNJHutsngw14/06/2025 11:43 AM EST Ulcer of foot with muscle involvement without evidence of necrosis, unspecified laterality (HCC) QBBZUWLIYPIfnaruq18/03/2025 2:42 PM EST Ulcer of foot with muscle involvement without evidence of necrosis, unspecified laterality (HCC) XR FOOT 3+ VIEWS SMKCUnaoveo81/28/2025 4:10 PM EDT Ulcer of foot with muscle involvement without evidence of necrosis, unspecified laterality (HCC) XR FOOT 3+ VIEWS VEHBUdoswhc76/09/2025 5:38 PM EDT Ulcer of left foot with fat layer exposed (HCC) XR FOOT 3+ VIEWS RPIOIQqzoxtj73/21/2025 5:18 PM EDT Status post amputation of lesser toe of right foot (HHS-HCC) BONE CULTURE ([place])Lkansqr2012/16/2024 9:06 AM EDT CULTURE, ANAEROBIC BACTERIA W/GRAM ZQUEIGvzeimj02/15/2025 9:06 AM EDT from Last 3 Months Results * MR foot left w and wo IV contrast (03/09/2025 11:43 AM EST)Anatomical Region LateralityModalityLower Extremities, FootLeftMagnetic ResonanceSpecimen (Source)Anatomical Location / LateralityCollection Method / VolumeCollection TimeReceived Time03/09/2025 12:42 PM EST Impressions 03/09/2025 12:49 PM EST Findings concerning for early osteomyelitis of the head of the fifth metatarsal. ELECTRONICALLY SIGNED BY: Sung Whyte DO Narrative 03/09/2025 12:49 PM EST EXAM: MR FOOT LEFT W AND WO IV CONTRAST HISTORY: Foot ulcer. COMPARISON : Radiographs February 28, 2025 TECHNIQUE: Multiplanar multisequence MRI of the foot was performed without and with contrast. FINDINGS: Ulcer of the plantar soft tissues at the level of the fifth metatarsophalangeal joint measures approximately 1 cm. Question mild hyperintense T2 signal within the head of the fifth metatarsal with questionable corresponding hypointense T1 signal and mild postcontrast enhancement. No definitive signal abnormality of the fifth proximal phalanx given motion degradation. Flexor and extensor tendons are intact. No soft tissue mass. Procedure Note Sung Whyte DO - 03/09/2025 EXAM: MR FOOT LEFT W AND WO IV CONTRAST HISTORY: Foot ulcer. COMPARISON : Radiographs February 28, 2025 TECHNIQUE: Multiplanar multisequence MRI of the foot was performed withoutand with contrast. FINDINGS: Ulcer of the plantar soft tissues at the level of the fifthmetatarsophalangeal joint measures approximately 1 cm. Question mildhyperintense T2 signal within the head of the fifth metatarsal withquestionable corresponding hypointense T1 signal and mild postcontrastenhancement. No definitive signal abnormality of the fifth proximalphalanx given motion degradation. Flexor and extensor tendons are intact.No soft tissue mass. IMPRESSION: Findings concerning for early osteomyelitis of the head of the fifthmetatarsal. ELECTRONICALLY SIGNED BY: Sung Whyte DO Authorizing ProviderResult TypeResult StatusAfsaneh Hammond DPMIMG MRI PROCEDURESFinal Result * Creatinine, Serum (03/06/2025 2:42 PM EST)ComponentValueRef RangeTest Method Analysis TimePerformed AtPathologist SignatureCreatinine0.800.70 - 1.35 mg/dL AECWSWBKO75> OR = 60 mL/min/1.55p8TBZMSOvpftdir (Source)Anatomical Location / LateralityCollection Method / VolumeCollection TimeReceived TimeBloodVenous blood specimen / Swlsayt4203/06/2025 2:42 PM EST03/06/2025 2:49 PM EST Narrative Resulting Agency Comment Performing Organization Information ?Site ID: [id number] ?Name: [facility] ?Address: [address] [place] [address], [address] [place] [address] ?Director: Yasir Parks MD Authorizing ProviderResult TypeResult StatusAfsaneh Hammond DPMLAB BLOOD ORDERABLESFinal ResultPerforming OrganizationAddressCity/State/ZIP CodePhone Number [facility] * XR foot 3+ views left (02/28/2025 [...] Acute osteomyelitis of right ankle or foot ([facility]) [M86.171] Ulcer of toe of right foot, with necrosis of bone ([facility]) [L97.514] ?? PERFORMED AT [facility] [address],[place] [address] Specimen (Source)Anatomical Location / LateralityCollection Method / [...] Acute osteomyelitis of right ankle or foot ([facility]) [M86.171] Ulcer of toe of right foot, with necrosis of bone ([facility]) [L97.514] ?? PERFORMED AT [facility] [address],[place] [address] Specimen (Source)Anatomical Location / LateralityCollection Method / Volume Collection TimeReceived Time12/16/2024 9:06 AM EDT12/16/2024 12:36 PM EDT Narrative Authorizing ProviderResult TypeResult StatusJesscatarino Hammond DPMLAB MICROBIOLOGY - GENERAL ORDERABLESFinal ResultPerforming OrganizationAddressCity/State/ZIP CodePhone Number [place] from Last 3 Months Insurance * Guarantor: Yhoannes Andre DAccount TypeRelation to PatientDate of BirthPhone Billing AddressPersonal/AhrwrqKyjl93/15/1961 [facility] [address] [address] MemberSubscriberPlan / Payer (Effective 2022-Present)Name:Yohannes Andre Relation to Subscriber:SelfName:Yohannes Andre Payer ID:Not on file Group ID:[id number] Type:Not on file Address: [facility] [address] [place] [id number] Care Teams Team MemberRelationshipSpecialtyStart DateEnd Date Jose Garner DO [address] [place] [address] PCP - GeneralInternal Medicine09/22/24
--- OUTSIDE RECORDS SUMMARY | 2025-03-16 14:25 | XMS_ITS | Clinical Summary ---
Author Organization [facility] Address [address] [place] [address] Care Team Providers Care Concrete Wall Grinder Operator Name Role Phone Unavailable Primary Care Provider [...] morning and once before bed07/27/2023ctive Dexcom G4 [place] community advocate (Dexcom G7 Grounds Manager) misc Use to test glucose throughout the [...] venous catheter if needed each day.07/24/2023ctive HYDROcodone-acetaminophen ([place]) 5-325 mg tablet Take 1 tablet by [...] once in the morning and once before cwhcgyy8407/27/2023ctive metFORMIN XR (Glucophage-XR) 500 mg 24 hr [...] needed each day.07/24/2023ctive sodium chloride-Aloe vera gel ([place] Saline) gel topical gel Apply 1 Application [...] type 2 diabetes mellitus, with fat layer eognhqs41/01/2024MSSA aedmeazunz38/20/ellulitis of right foot Afujxlqamgrt55Hypoxialcohol abuse MS (altered mental status)Hypertension Left mxjkkfgsku86Sepsis07/16/2023 08/11/2023Type II diabetes mellitus with neurological adskjnmrriiwhg52/23/2024 08/11/2023therosclerosis of beaver artery of fzaqxdjrg87 Tobacco useUlcer of right foot with necrosis of muscle Social History Tobacco UseTypesPacks/DayYears UsedDateSmoking Tobacco: Never AssessedUT Safety & EnvironmentAnswerDate RecordedFear of Current or Ex-PartnerNot on file 07/20/2023Emotionally AbusedNot on file07/20/2023hysically AbusedNot on file 07/20/2023Sexually AbusedNot on file07/20/2023hysically or Sexually AbusedNot on file07/20/2023Sex and Gender InformationValueDate RecordedSex Assigned at BirthNot on fileLegal DxrKjfx4907/20/2023 12:01 AM EDTGender IdentityNot on file Sexual OrientationNot on file Plan of Treatment Health MaintenanceDue DateLast DoneCommentsCT Mwelgspenxjg02/15/1962Colonoscopy 2Colorectal Cancer Nysdnfphg04/15/1962Diabetes: Hemoglobin A1C 1961FIT-DNA1961FIT1961FOBT1961 4152Dipyvmkuaqzvb43/15/1962 Diabetes: Retinopathy Kejrabrro75/15/1972Depression Qulcpgmso55/15/1974Diabetes: Urine Protein Tyejiozne01/15/1981Pneumococcal Vaccine: Pediatrics (0 to 5 Years) and [...]
--- OUTSIDE RECORDS SUMMARY | 2025-03-16 14:25 | XMS_ITS | Encounter Summary ---
Author Organization [facility] Sys tem Address [id number] [place] [address] Care Team Providers Care Journeyman Pressman Name Role Phone Nathalie Handley Primary Care Provid er Reason for Visit * ReasonOnset RnmzMakknlgsKEPOXPFOT78/08/2025 Encounter Details DateTypeDepartmentCare Team (Latest Contact Info)Ynkmkcwbqlr31/08/2025[facility]phone [facility] [address] [place] [address] Barb Wang, GINA ANGIOGRAM Social History Tobacco UseTypesPacks/DayYears UsedDateSmoking Tobacco: Every YezMmxrkfgyfm740.9 Started: 1974Smokeless Tobacco: NeverAlcohol UseStandard Drinks/WeekCommentsYes2 (1 standard drink = 0.6 oz pure alcohol)history of alcohol abuseAHC Utilities AnswerDate RecordedIn the past 12 months has the [employer], gas, oil, or water [employer] threatened to shut off services in your home?No07/21/2023Social Connection and Isolation PanelAnswerDate RecordedIn a typical week, how many times do you talk on the phone with family, friends, or neighbors?Once a week 05/09/2022How often do you get together with friends or relatives?Once a week 05/09/2022How often do you attend cheondoism or confucianist services?Never05/09/2022o you belong to any clubs or organizations such as cheondoism groups, unions, fraternal or athletic groups, or school groups?No05/09/2022How often do you attend meetings of the clubs or organizations you belong to?Never05/09/2022re you , , , , never , or living with a partner?Nxyvhin4505/09/2022Overall Financial Resource Strain (CARDIA)AnswerDate RecordedHow hard is it for you to pay for the very basics like food, housing, medical care, and heating?Not hard at all05/09/2022HQ-2AnswerDate RecordedTotal Jydhs066[facility] - Occupational Stress QuestionnaireAnswerDate [...] of a household?No07/21/2023hildcareAnswerDate RecordedDo problems getting child support specialist make it difficult for you to work [...] and direction in my life.Neither Agree nor Ubxjtizs67/06/2023EducationAnswerDate RecordedWhat is the highest level of school you have completed or the highest degree you have received?11th grade04/30/2020Sex and Gender InformationValueDate RecordedSex Assigned at FhyjwNmdh87/13/2020 6:23 PM EDTLegal WktWewm9612/07/2014 11:22 AM EDT Gender SkagdrknPpkz36/13/2020 6:23 PM EDTSexual ZfcyqpynfxyLpjfkyba50/13/2020 6:23 PM EDTdocumented as of this encounter Miscellaneous Notes * Telephone Encounter - Barb Wang RN - 03/11/2025 7:52 AM EST Patient to be scheduled for angio per AY. 03/20 10:30AM Instructions: 03/11/25 Yohannes Andre Your procedure is scheduled at [facility] on 03/20/25 at 10:30 AM . Please report to the Admitting Department, entrance #C at 9 AM . X Please bring a written list of your medications and allergies. X Nothing to eat or drink 6 hours prior to your procedure. The morning of the procedure you may take your medications X Please hold Coumadin starting 03/15/25. Looks like you will already be on a bridge plan for surgery with Dr Simon. I will have [facility] contact you for continued bridging for procedure on 03/20. X Please obtain labwork prior to the procedure- BMP and CBC. Orders are in the [facility] system andno fasting is required. X You must bring a wagon driver salesperson with you. X Your post op appointment is scheduled for 03/28/25 at 2:40PM with Dr De Leon at the [facility] location. Thank You, Barb Wang RN [phone] * Telephone Encounter - Barb Wang RN - 03/11/2025 7:52 AM EST LMOM for patient and spouse to call office back to discuss. * Telephone Encounter - Barb Wang RN - 03/11/2025 7:52 AM EST Mahsa called back and we reviewed procedure and all instructions. Will send to [facility] as well. Msg to [facility] for new plan as patient will have another procedure on 03/20 in addition to 03/17 and need to be off coumadin for 5 days prior with bridging for valve. * Telephone Encounter - Kuldip Ricci RPH - 03/11/2025 7:52 AM EST Images from the original note were not included. Patient will continue to hold warfarin 03/17/25, 03/18/25, and 03/19/25. Will restart warfarin after procedure on 03/20/25. Called patient's spouse. Reviewed updated plan. INR rescheduled to 03/23/25. documented in this encounter Plan of Treatment DateTypeDepartmentCare Team (Latest Contact Info)Exkspvnrwrp92/14/2025 8:30 AM ESTHospital Encounter [facility] [address] [place] [address] Afsaneh Hammond, DPM [address] [place], [place] [phone] 03/17/2025 8:30 AM ESTAnesthesia Event [facility] [address] [place] [address] Naif Mireles, DO [address] [facility] [place] [address] 03/17/2025 8:30 AM EST - 03/17/2025 10:00 AM ESTSurgery [facility] [address] [place] [address] Afsaneh Hammond, DPM [address] [place], [place] [phone] AMPUTATION METATARSAL AND TOE partial 5th ray, wound vac [[id number] (CPT??)] 03/20/2025 10:30 AM ESTHospital Encounter [facility] Card[facility] [address] [place] [phone] Mary Beth De Leon MD [address] [place] [address] 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 exposed ([facility])03/20/2025 10:30 AM EST - 03/20/2025 12:30 PM ESTSurgery [facility] Card[facility] Cath [address] [place] [address] Mary Beth De Leon MD [address] [place] [address] Vascular Invasive- Left Lower Extremity Angiogram with possible intervention 03/23/2025 1:15 PM ESTFollow Up Anticoagulation [facility] - Pharmacy Medication Management [address] [place] [address] Yusuf Fletcher MD [address] [place] [address] 03/28/2025 2:40 PM ESTOffice Visit [facility] [address] [place] [address] Mary Beth De Leon MD [address] [place] [address] 03/29/2025 2:00 PM ESTFollow Up Anticoagulation [facility] Medication Management [address] [place] [address] Yusuf Fletcher MD [address] [place] [address] 05/12/2025 1:00 PM ESTClinical Support [facility] Medication Management [address] [place] [address] Yusuf Fletcher MD [address] [place] [address] NamePriorityAssociated DiagnosesDate/TimeAMPUTATION METATARSAL AND TOE left foot [...] Additional Health Concerns Active ProblemsNoted DateDiagnosed DateAutogenerated Bjptmjp46/07/2025Assessment Noted TimePHQ-9 Depression Total Score: 2:03 PM EDTA Body Mass Index follow-up plan has been documented for the qotkyng9211/13/2017 2:35 PM EDT documented as of this encounter Care Teams Team MemberRelationshipSpecialtyStart DateEnd Date Nathalie Handley APRN-CAITY [address] [place] [address] PCP - GeneralNurse Practitioner09/08/24documented as of this encounter
--- OUTSIDE RECORDS SUMMARY | 2025-03-16 14:25 | XMS_ITS | Encounter Summary ---
Author Organization [facility] tem Address [id number] [address] [place] [address] Care Team Providers Care Community Coordinator [employer] Name Role Phone Nathalie Handley Primary Care Provid er Encounter Details DateTypeDepartmentCare Team (Latest Contact Info)Cjpicannwwg42/07/2025Telephone [facility] Medication Management [address] [place] [address] Medication Management, [facility] [address] [place] [address] Social History Tobacco UseTypesPacks/DayYears UsedDateSmoking Tobacco: Every QtmDhnivuoeqx236.9 Started: 1974Smokeless Tobacco: NeverAlcohol UseStandard Drinks/WeekCommentsYes2 (1 standard drink = 0.6 oz pure alcohol)history of alcohol abuseAHC Utilities AnswerDate RecordedIn the past 12 months has the [employer], gas, oil, or water [employer] threatened to shut off services in your home?No07/21/2023Social Connection and Isolation PanelAnswerDate RecordedIn a typical week, how many times do you talk on the phone with family, friends, or neighbors?Once a week 05/09/2022How often do you get together with friends or relatives?Once a week 05/09/2022How often do you attend taoism or muslim services?Never05/09/2022o you belong to any clubs or organizations such as taoism groups, unions, fraternal or athletic groups, or school groups?No05/09/2022How often do you attend meetings of the clubs or organizations you belong to?Never05/09/2022re you , , , , never , or living with a partner?Zcuclpd3405/09/2022Overall Financial Resource Strain (CARDIA)AnswerDate RecordedHow hard is it for you to pay for the very basics like food, housing, medical care, and heating?Not hard at all05/09/2022HQ-2AnswerDate RecordedTotal Vpbce996F[facility] [place] of Occupational Health - Occupational Stress QuestionnaireAnswerDate [...] you from medical appointments or from getting medications?07/21/2023In the past 12 months, has lack of [...] of a household?No07/21/2023hildcareAnswerDate RecordedDo problems getting child custody evaluator make it difficult for you to work [...] and direction in my life.Neither Agree nor Vtnyqugi90/06/2023EducationAnswerDate RecordedWhat is the highest level of school you have completed or the highest degree you have received?11th grade04/30/2020Sex and Gender InformationValueDate RecordedSex Assigned at LwefwJzdl17/13/2020 6:23 PM EDTLegal UwpEiky2612/07/2014 11:22 AM EDT Gender PrihijizUrwh23/13/2020 6:23 PM EDTSexual KwvpnsidvpsRlvwsunk06/13/2020 6:23 PM EDTdocumented as of this encounter Miscellaneous Notes * Telephone Encounter - Pily Fletcher - 03/10/2025 9:12 AM EST Mahsa, patients , LVM P:[phone]. Patient is scheduled for a procedure on 03/18/25 and he is to hold his warfarin and start Lovenox. Mahsa is asking for a call back to discuss the lovenox and have a RX sent to his pharmacy. Mahsa requested to speak with Leslie. * Telephone Encounter - Leslie Ruth [facility] - 03/10/2025 9:12 AM EST Returned call to Mahsa. Patient procedure is 03/17. Has 10 doses of Lovenox on hand. Having surgeryto remove toe/part of foot due to osteomyelitis. We will arrange bridge and return call to patient. Leslie Ruth, TajD, BCPS March 10, 2025 12:50 PM * Telephone Encounter - Leslie uRth RP - 03/10/2025 9:12 AM EST Images from the original note were not included. Patient has clearance from [facility] within 3 months (See December notes). Bridge plan created. [facility] Called Paula at [phone] to review. All questions answered. Sending Bridge plan via [employer] as well. Leslie Ruth, PharmD, BCPS March 10, 2025 3:43 PM * Telephone Encounter - Davida Fraire RP - 03/10/2025 9:12 AM EST Message received from [facility] that patient is cleared to hold warfarin for 5 days prior to procedure with Lovenox bridging. Patient was already given procedure instructions and should have started holding warfarin yesterday. No further action needed at this time. * Addendum Note - Leslie Ruth RP - 03/10/2025 9:12 AM ESTAddended by: LESLIE RUTH on: 03/10/2025 03:43 PM Modules accepted: Orders documented in this encounter Plan of Treatment DateTypeDepartmentCare Team (Latest Contact Info)Txedzooweoi30/14/2025 8:30 AM ESTHospital Encounter [facility] [address] [place] [address] Afsaneh Hammond, DPFransisco [address] [place], [place] [address] 03/17/2025 8:30 AM ESTAnesthesia Event [facility] [address] [place] [address] Naif Mireles, DO [address] [place] [address] 03/17/2025 8:30 AM EST - 03/17/2025 10:00 AM ESTSurgery [facility] - [facility] [address] [place] [address] Afsaneh Hammond, DPM [address] [place], [place] [address] AMPUTATION METATARSAL AND TOE partial 5th ray, wound vac [[id number] (CPT??)] 03/20/2025 10:30 AM ESTHospital Encounter [facility] - Cardiac Cath [address] [place] [address] Mary Beth De Leon MD [address] [place] [address] 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 exposed ([facility]03/20/2025 10:30 AM EST - 03/20/2025 12:30 PM ESTSurgery [facility] [address] [place] [address] Mary Beth De Leon MD [address] [place] [address] Vascular Invasive- Left Lower Extremity Angiogram with possible intervention 03/23/2025 1:15 PM ESTFollow Up Anticoagulation [facility] - Pharmacy Medication Management [address] [place] [address] Yusuf Fletcher MD [address] [facility] [place] [address] 03/28/2025 2:40 PM ESTOffice Visit [facility] [address] [place] [address] Mary Beth De Leon MD [address] [place] [address] 03/29/2025 2:00 PM ESTFollow Up Anticoagulation [facility] - Pharmacy Medication Management [address] [place] [address] Yusuf Fletcher MD [address] [place] [address] 05/12/2025 1:00 PM ESTClinical Support [facility] - Pharmacy Medication Management [address] [place] [address] Yusuf Fletcher MD [address] [place] [address] NamePriorityAssociated DiagnosesDate/TimeAMPUTATION 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 Autogenerated Goal Care PlanAutogenerated ProblemNoPotts, Elizabethdocumented as of this encounter Visit Diagnoses Diagnosis S/P AVR (aortic valve replacement)- Primary Heart valve replaced by other means 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 exposed (CMS-HCC)- Primary 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 exposed (CMS-HCC) documented in this encounter Additional Health Concerns Active ProblemsNoted DateDiagnosed DateAutogenerated Bvydrxc78/07/2025Assessment Noted TimePHQ-9 Depression Total Score: 2:03 PM EDTA Body Mass Index follow-up plan has been documented for the zramqtn3211/13/2017 2:35 PM EDT documented as of this encounter Care Teams Team MemberRelationshipSpecialtyStart DateEnd Date Nathalie Handley APRN-NP [address] [facility] [place] [address] PCP - GeneralNurse Practitioner09/08/24documented as of this encounter
--- OUTSIDE RECORDS SUMMARY | 2025-03-16 14:25 | XMS_ITS | Clinical Summary ---
Author Organization [facility] Address [address] [place] [address] Care Team Providers Care Certified Nurse Name Role Phone Unavailable Primary Care Provider [...] TABLET BY MOUTH EVERY MORNING AND BEFORE GKLQUXX0808/16/2021ctive pantoprazole DR (PROTONIX) 40 mg tablet Take [...] EVERY TEN DAYS FOR CONTINUOUS BLOOD SUGAR GCFSPIIWKB21/20/2024 Active docusate sodium (COLACE) 100 mg capsule [...] Social History Tobacco UseTypesPacks/DayYears UsedDateSmoking Tobacco: Every EpaJyghbtadzs041.9 Started: [birth year]04/1972Smokeless Tobacco: Never Tobacco Cessation:Ready to Q uit: Not Asked; Counseling Given: Not Answered Alcohol UseStandard Drinks/WeekCommentsNot Currently0 (1 standard drink = 0.6 oz pure alcohol)rarelyArea Deprivation IndexAnswerDate RecordedNational Score (1- 100), lower number is lower wavs215301/18/2024State Score (1-10), lower number is lower stpn283/16/2024Data from: https://www.neighborhoodatlas.[facility].[employer].edu/. Last address used for ivzfvxwsdjg[address] Sex and Gender InformationValueDate RecordedSex Assigned at PdctcLcah55/15/2024 12:42 PM EDTLegal DaqPtco3910/29/2023 2:59 PM EDTGender CdptypgjPggf04/15/2024 12:42 PM EDTSexual OrientationStraight 12/17/2023 12:42 PM EDT Last Filed Vital Signs Vital SignReadingTime TakenCommentsBlood Evyasiho688/70001/18/2024 3:09 PM EDT Loosc839201/18/2024 3:09 PM RVQXgzmalzzuom14.9 ??C (98.4 ??F)01/18/2024 3:09 PM EDTRespiratory Rate--Oxygen Satqskszvb84%01/18/2024 3:09 PM EDTInhaled Oxygen Concentration--Jcdplg952.2 kg (231 lb 14.8 oz)01/18/2024 3:09 PM FCRSxzvuo385.7 cm (5' 8 )01/18/2024 3:09 PM EDTBody Mass Index35.26001/18/2024 3:09 PM EDT Plan of Treatment Health MaintenanceDue DateLast DoneCommentsAnxiety Hlkidrlmu06/15/1980Depression Eforhxlxv91/15/1980HIV Rlomvoxit33/15/1980Hepatitis C Faippmymv68/15/1980 DTaP,Tdap,Td Vaccine (1 - Tdap)1980Pneumococcal Vaccine: 50+ (1 of 2 - PCV)1980CT Mbzcnfztgabp47/15/8048Hoyzdunlkvm15/15/2007Prostate Cancer Screening Xquwggauvi07/15/4229Ghgkxwlmkhuiy93/15/2007Shingrix Vaccine (1 of 2) 2011RSV Vaccine (1 - Risk 60-74 years 1-dose series)2Cologuard (FIT-DNA)/09/2018Colorectal Cancer Oqimpaion29/31/2023Fecal Occult Blood2Covid-19 Vaccine ( season)2025 05/08/2021, 10/23/2020, 10/02/2020Influenza Vaccine (#1)2025Diabetes Ozhlgtftr08/02/64166805/05/2023, 01/27/2024, 10/22/2023, Additional history exists Lipid Jpioqputy52, 12/28/2023, 07/13/2023, Additional history exists Insurance [address] [place] [address]
--- OUTSIDE RECORDS SUMMARY | 2025-03-16 14:25 | XMS_ITS | Clinical Summary ---
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 18 g ctive blood-glucose meter,continuous (DEXCOM G7 COST SPECIALIST) misc Indications:Diabetes mellitus without complication ([facility])Use to test glucose throughout the day 1 each 07/29/2023ctive buPROPion SR (WELLBUTRIN SR) 150 mg 12 hr tablet TAKE 1 TABLET BY MOUTH TWICE DAILY (IN THE MORNING and BEFORE bedtime) 180 tablet ctive Additional Information Patient taking differently: 75 mgoral, TAKE 1 TABLET BY MOUTH TWICE DAILY (IN THE MORNING AND BEFORE BEDTIME), Reported on 03/14/2025 blood-glucose sensor (DEXCOM G7 SENSOR) device Indications:Diabetes mellitus without complication ([facility])Use to check glucose throughout the day. Change every 10 days 3 each ctive pantoprazole (PROTONIX) 40 mg EC tablet TAKE 1 TABLET BY MOUTH IN THE MORNING 30 tablet 512/30/2024Active amLODIPine (NORVASC) 5 mg tablet Indications:Primary hypertensionTAKE 1 TABLET BY MOUTH IN THE MORNING 30 tablet 5124Active Additional Information Patient taking differently: 2.5 mgoral, Reported on 03/14/2025 atorvastatin (LIPITOR) 40 mg tablet TAKE 1 TABLET BY MOUTH NIGHTLY 30 tablet 5124Active fexofenadine (LACHO) 180 mg tablet Take 1 [...] day as needed for cough. 30 capsule 5Active dapagliflozin propanediol (FARXIGA) 10 mg tablet Indications:Diabetes mellitus without complication ([facility])Take 1 tablet (10 mg total) by mouth [...] Indications:Type II diabetes mellitus with neurological manifestations ([facility]) Inject 0.1 mL (0.6 mg total) under the skin daily for 7 days, THEN 0.2 mL (1.2 mg total) daily for 7 days, THEN 0.3 mL (1.8 mg total) daily for 120 days. 9 mL 5Active pen needle, diabetic (UNIFINE PENTIPS PLUS) 32 gauge x 5/32 needle Indications:Type II diabetes mellitus with neurological manifestations ([facility]) use to INJECT victoza daily 100 each 5Active blood-glucose meter (TRUE METRIX GLUCOSE METER) [facility] Indications:Type II diabetes mellitus with neurological manifestations (CMS-HCC) Use to check glucose daily and calibrate CGM 1 each 5Active blood sugar diagnostic (TRUE METRIX GLUCOSE TEST STRIP) strip Indications:Type II diabetes mellitus with neurological manifestations (CMS-HCC) Use to check glucose daily and calibrate CGM 100 strip 5Active lancets 30 gauge misc Indications:Type II diabetes mellitus with neurological manifestations (CMS-HCC) Use to check glucose daily and calibrate CGM 100 each 5Active metFORMIN XR (GLUCOPHAGE XR) 500 mg 24 hr tablet Indications:Type II diabetes mellitus with neurological manifestations (CMS-HCC) Take 2 tablets (1,000 mg total) by mouth in the morning and at bedtime. 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 as directed by [facility] Medication Management (PPMM). 135 tablet 5Active acetaminophen (TYLENOL) 325 mg tablet Take 2 tablets (650 mg total) by mouth every 6 (six) hours as needed for pain. Active spironolactone (ALDACTONE) 25 mg tablet Take 1 tablet (25 mg total) by mouth in the morning. 90 tablet 5Active enoxaparin (LOVENOX) 100 mg/mL syringe Indications:S/P AVR (aortic valve replacement)Inject 1 mL (100 mg total) under the skin every 12 (twelve) hours. Per bridge plan 10 mL 5Active ondansetron (ZOFRAN) 4 mg tablet Take 1 tablet (4 mg total) by mouth every 8 (eight) hours as needed for nausea or vomiting.Active Active Problems ProblemNoted DateDiagnosed DateDiabetic ulcer of right midfoot associated with type 2 diabetes mellitus, with fat layer bcwiwdy0407/23/2023MSSA bacteremia 07/22/20230766Oimwifdtykqn89/15/4684Ohkhakt13/15/2024ellulitis of right foot 07/17/2023MS (altered mental status)07/16/2023lcohol abuse07/16/2023 Ggoxrqtfjfbr54/14/2024Left uftvjwxklo00/14/2024Type II diabetes mellitus with neurological aufblmnewxmkxr00/23/2024therosclerosis of [place] artery of esespjsjh03/22/2023Ulcer of right foot with necrosis of qqhqui4312/26/2022Tobacco use12/26/2022Nonrheumatic aortic valve oyzwiaqmvddpd30/01/2022Hyp hrt and chr kdny dis w/o hrt fail, w stg 5 chr kdny/ESRD03/25/2022AD (coronary artery disease)03/19/2022Upper GI bleed03/07/2022hronic ulcer of left foot with fat layer nzlpvyo3603/03/20221895Vtbdoq99/30/2022 Overview (03/03/2022): Added automatically from request for surgery [id number] Stenosis of prosthetic aortic valve01/07/20221210Jmzkibi68/25/2022besity (BMI 30-39.9)08/30/2021erebrovascular accident (CVA) of right basal ganglia 08/07/2021Neuropathy of left foot2Rib /18/2017Chronic bilateral low back pain without zcrjnukz90/09/2017Long term current use of 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 lnncwoi0508/14/2016S/P AVR (aortic valve replacement)08/14/2016 Mitral valve ldhympa2706/14/2013 Resolved Problems ProblemNoted DateDiagnosed DateResolved MfaeMgjynb23Sepsis, due to unspecified organism, unspecified whether acute organ dysfunction present NSTEMI (non-ST elevated myocardial infarction)03/02/2022 04/03/2022reop cardiovascular examEssential hypertension, cqojwf46/15/138967/01/2022Aortic valve zsgqhrhc48leeding nose 04/03/2022 Encounters DateTypeDepartmentCare IuwsLmqnpimspxg87/12/2025Results Follow-Up [facility] [address] [place] [address] Barb Wang, GINA Basic Metabolic Panel, CBC without diff03/14/2025 1:30 PM ESTProcedure visit [facility] [address] [place] [address] 03/14/20254228Jujsro33/10/2025Telephone [facility] Cardiology [address] [place] [address] Sil Lucas LPN Surgical Or Dental Ohtofjkdo17/08/2025Telephone [facility] [address] [place] [address] Barb Wang RN YQMEZMJWQ70/07/2025Telephone [facility] Medication Management [address] [place] [address] Medication Management, [facility] 03/08/2025Telephone [facility] Cardiology [address] [place] [address] Lurdes Amaro RN 03/06/2025Orders Only [facility] Medication Management [address] [place] [address] Ref Prov, Not In System 02/28/2025 10:30 AM EDTOffice Visit [facility] Cardiology [address] [place] [address] Naty Patino MD Coronary artery disease involving [place] coronary artery of [place] heart without angina pectoris (Primary Dx); Primary hypertension; Nonrheumatic aortic valve njxjfkzbwadou32/28/2025 9:45 AM EDTFollow Up Anticoagulation [facility] Medication Management [address] [place] [address] 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 (Primary Dx); S/P AVR (aortic valve replacement); Encounter for oqzkdtncgcma94/27/2025Telephone [facility] [address] [place] [address] Rosa Culver 02/26/20253337Zyhldi94/09/2025 1:00 PM EDTClinical Support [facility] Medication Management [address] [place] [address] Yusuf Fletcher MD Type II diabetes mellitus with neurological manifestations ([facility]) (Primary Dx)02/09/20252848Gfgrqw55/06/2025Refill [facility] [address] [facility] [address] [place] [address] Christianne Bernard, SAILING INSTRUCTOR-[facility] Med Emggzq3202/06/2025[facility] [address] [place] [address] Chino Harmon MD 01/25/2025 1:45 PM EDTFollow Up Anticoagulation [facility] Medication Management [address] [facility] [place] [address] Yusuf Fletcher MD 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 care 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 of 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 therapy (Primary Dx); S/P AVR (aortic valve replacement)01/25/20250394Uzzfma73/19/2025Telephone [facility] Medication Management [address] [address] Medication Management, [facility] 01/19/2025Telephone [facility] Medication Management [address] [place] [address] Leslie Ruth, [facility] 01/12/2025 1:00 PM EDTFollow Up Anticoagulation [facility] Medication Management [address] [place] [address] Yusuf Fletcher MD 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 care current use of 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 therapy (Primary Dx); S/P AVR (aortic valve replacement)01/12/20253691Zgpsul96/29/2025Telephone [facility] Medication Management [address] [place] [address] Medication Management, [facility] 12/29/2024 2:00 PM EDTFollow Up Anticoagulation [facility] Medication Management [address] [place] [address] 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 (Primary Dx); S/P AVR (aortic valve replacement)12/29/2024 1:30 PM EDTClinical Support [facility] Medication Management [address] [place] [address] Yusuf Fletcher MD Type II diabetes mellitus with neurological manifestations ([facility]) (Primary Dx)12/29/20245917Iacaes63/22/2025Refill [facility] Medication Management [address] [place] [address] [facility] Type II diabetes mellitus with neurological manifestations ([facility])12/23/2024 Telephone [facility] Medication Management [address] [place] [address] Jud Santoyo MA 12/22/2024 3:30 PM EDTFollow Up Anticoagulation [facility] Medication Management [address] [place] [address] 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 (Primary Dx); S/P AVR (aortic valve replacement)12/21/2024Telephone [facility] Medication Management [address] [place] [place] [address] Medication Management, [facility] 12/20/2024 2:00 PM EDTFollow Up Anticoagulation [facility] Medication Management [address] [facility] [place] [address] 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 (Primary Dx); S/P AVR (aortic valve replacement)12/20/20240166Gmgwam86/15/2025 8:30 AM EDT - 12/16/2024 10:30 AM EDTSurgery [facility] [address] [place] [address] Afsaneh Hammond, DPFransisco AMPUTATION TOE 5th ray pmlowrs5012/16/2024 8:30 AM EDTAnesthesia Event [facility] [address] [facility] [place] [address] Chino Laureano MD 12/16/2024 6:36 AM EDT - 12/16/2024 10:41 AM EDTHospital Encounter [facility] Surgery [address] [facility] [place] [address] Afsaneh Hammond, DPM Ulcer of right foot, with necrosis of bone (CMS-HCC) (Primary Dx); Acute osteomyelitis of right ankle or foot (CMS-HCC); Ulcer of toe of right foot, with necrosis of bone (CMS-HCC); Acute osteomyelitis of right foot (CMS-HCC) Discharge Disposition: Home12/16/2024Travelfrom Last 3 Months Immunizations ImmunizationAdministration DatesNext DueCOVID-19, mRNA, LNP-S, PF, 30mcg/0.3mL Dose05/08/2021,10/23/2020,10/02/2020Influenza, Im Flucelvax (Pf)02/28/2025 Family History Medical HistoryRelationNameCommentsEarly deathFatherdonald BARGERStrokeMaternal GrandfatherCancerMotherBarbra Dalila BargerOvarian cancerMotherBarbra Dalila Thai Early deathSisterkimberly diamante bargerRelationNameStatusCommentsFatherdonald BARGERDeceasedMaternal GrandfatherMotherBarbra Dalila BargerDeceasedSisterkimberly diamante bargerDeceased Social History Tobacco UseTypesPacks/DayYears UsedDateSmoking Tobacco: Every BfvRgsxhucnio638.9 Started: 1975Smokeless Tobacco: Never Tobacco Cessation:Ready to Q uit: Not Asked; Counseling Given: Not Answered Alcohol UseStandard Drinks/WeekCommentsNot Currently2 (1 standard drink = 0.6 oz pure alcohol)history of alcohol abuseAHC UtilitiesAnswerDate RecordedIn the past 12 months has the [employer], gas, oil, or water [employer] threatened to shut off services in your home?No07/21/2023Social Connection and Isolation PanelAnswer Date RecordedIn a typical week, how many times do you talk on the phone with family, friends, or neighbors?Once a week05/09/2022How often do you get together with friends or relatives?Once a week05/09/2022How often do you attend uatsdin or zoroastrian services?Never05/09/2022o you belong to any clubs or organizations such as uatsdin groups, unions, fraternal or athletic groups, or school groups?No 05/09/2022How often do you attend meetings of the clubs or organizations you belong to?Never05/09/2022re you , , , , never , or living with a partner?Hdumtny0005/09/2022Overall Financial Resource Strain (CARDIA)AnswerDate RecordedHow hard is it for you to pay for the very basics like food, housing, medical care, and heating?Not hard at all05/09/2022 PHQ-2AnswerDate RecordedTotal Yxvhu746[facility] [place] of Occupational Health - Occupational Stress QuestionnaireAnswerDate RecordedDo you feel stress - tense, restless, nervous, or anxious, or unable to sleep at night because your mind is troubled all the time - these [...] you from medical appointments or from getting medications?No 07/21/2023In the past 12 months, has lack of transportation kept you from meetings, work, or from getting things needed for daily living?No07/21/2023 AUDIT-CAnswerDate RecordedQ1: How often do you have a drink containing alcohol? Never02/28/2025Q2: How many drinks containing alcohol do you have on a typical day when you are drinking?Patient does not drink02/28/2025Q3: How often do you have six or more drinks on one occasion?Never02/28/2025Housing InstabilityAnswer Date RecordedAre you worried or concerned that in the next two months you may not have stable housing that you own, rent or stay in as a part of a household? No07/21/2023hildcareAnswerDate RecordedDo problems getting child development professor make it difficult for you to work or study?No05/09/2022EmploymentAnswerDate RecordedDo you need help finding a local career center and/or a training program?No 05/09/2022Hunger ScreeningAnswerDate RecordedWithin the past 12 months we worried whether our food would run out before we got money to buy more.Never True10/12/2024Within the past 12 months the food we bought just didn't last and we didn't have money to get more.Never True10/12/2024Purpose - LifeAnswerDate RecordedI have a purpose and direction in my life.Neither Agree nor Disagree 05/09/2022EducationAnswerDate RecordedWhat is the highest level of school you have completed or the highest degree you have received?11th grade04/30/2020Sex and Gender InformationValueDate RecordedSex Assigned at YhyreGjeb01/13/2020 6:23 PM EDTLegal GlhTafm3412/07/2014 11:22 AM EDTGender LkjuobxyOkth06/13/2020 6:23 PM EDTSexual QseutxfbbwlWcffvrfv05/13/2020 6:23 PM EDT Last Filed Vital Signs Vital SignReadingTime TakenCommentsBlood Kcrbgszi191/8010/ 10:14 AM EDT Slfco096102/28/2025 10:14 AM WNGKxapsqoamkm66.6 ??C (97.9 ??F)12/16/2024 6:56 AM EDTRespiratory Yrhs206612/16/2024 6:56 AM EDTOxygen Ezddgkfaku05%02/09/2025 1:07 PM EDTInhaled Oxygen Concentration--Jyimbx858.3 kg (230 lb)03/14/2025 1:41 PM PYWSaqxpz942.7 cm (5' 8 )03/14/2025 1:41 PM ESTBody Mass Index34.9703/14/2025 1:41 PM EST Plan of Treatment DateTypeDepartmentCare Team (Latest Contact Info)Ciugnegulqk48/14/2025 8:30 AM ESTHospital Encounter [facility] Surgery [address] [facility] [place] [address] Afsaneh Hammond, DPM [address] [place], [place] [address] 03/17/2025 8:30 AM ESTAnesthesia Event [facility] Surgery [address] [place] [address] Naif Mireles, DO [address] [place] [address] 03/17/2025 8:30 AM EST - 03/17/2025 10:00 AM ESTSurgery [facility] [address] [facility] [place] [address] Afsaneh Hammond, DPM [address] [place], [place] [id number] AMPUTATION METATARSAL AND TOE partial 5th ray, wound vac [57772 (CPT??)] 03/20/2025 10:30 AM ESTHospital Encounter [facility] Cardiac Cath [address] [place] [address] Mary Beth De Leon MD [address] [place] [address] 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 exposed ([facility])03/20/2025 10:30 AM EST - 03/20/2025 12:30 PM ESTSurgery [facility] [address] [place] [address] Mary Beth De Leon MD [address] [place] [address] Vascular Invasive- Left Lower Extremity Angiogram with possible intervention 03/23/2025 1:15 PM ESTFollow Up Anticoagulation [facility] Medication Management [address] [place] [address] Yusuf Fletcher MD [address] [place] [address] 03/28/2025 2:40 PM ESTOffice Visit [facility] [address] [place] [address] Mary Beth De Leon MD [address] [place] [address] 03/29/2025 2:00 PM ESTFollow Up Anticoagulation [facility] Medication Management [address] [place] [address] Yusuf Fletcher MD [address] [place] [address] 05/12/2025 1:00 PM ESTClinical Support [facility] Medication Management [address] [place] [address] Yusuf Fletcher MD [address] [place] [address] NamePriorityAssociated DiagnosesDate/TimeAMPUTATION METATARSAL AND TOE left foot ulcer with bone necrosis, acute osteomyelitis 03/17/2025 8:30 AM ESTHealth MaintenanceDue DateLast DoneCommentsDiabetic Ophthalmology Exam1961Tobacco Keengpvber02/15/1962dult BMI Follow Up Plan 1979DTaP,Tdap and Td Vaccines (1 - Tdap)1980Zoster (Shingles) Vaccine (1 of 2)2011RSV ( or age 60+ yrs) (1 - Risk 60-74 years 1- dose series)6230Prguzvfrisn90/04/202211/08/2018, 03/07/2019Diabetic Foot Exam/4COVID-19 Vaccine (2024- season)2025 05/08/2021, 10/23/2020, 1Depression Poinwvawx12/dult BMI Wqhvyedhx93/03/2025Tobacco Yoimkziej94/03/2025Influenza KyydzjxTtrtiwikc17/28/2025 Goals GoalPatient Goal TypeAssociated ProblemsRecent ProgressPatient-Stated?Author <enter goal here> Doris Handley RN Note: Evaluation of progress towards goal: patient progressing toward safe discharge. Autogenerated Goal Care PlanAutogenerated ProblemNoPotts, [place] [employer] ImplantedTypeAreaManufacturerDevice IdentifierShelf Expiration DateModel / Serial / LotMatrix Tissue Acellular Human Placental Axiofill 250mg Rpl [id number] - [id number] - [id number] Implanted:Qty: 1 on 06/26/2023 by [facility]: VbniASMQMT67/01/2028PCM-0250 / [id number] / NATissue Hmn 1x2cm Epicord - [id number] - [id number] Implanted:Qty: 2 on 06/26/2023 by [facility]fsaneh Hammond[facility]: GddqTUPAQU95/01/2028EC-5120 / [id number] / NAMatrix Tissue Acellular Human Placental Axiofill 250mg Rpl [id number] - [id number] - [id number] Implanted:Qty: 1 on 07/10/2023 by [facility]fsaneh Hammond[facility] at [facility]: ImegXDZGSB18/01/2028PCM-0250 / [id number] / N/AAmnioexcel Plus Implanted:Qty: 9 on 10/02/2023 by [facility]aneh Hammond[facility]: FootINTEGRA LIFESCIENCE [id number] / NA / [id number] Aor 16.1mm 23mm 33mm 21.4mm Onx Cnfrm-X Sw Rng Ptfe - [id number] - [id number] Implanted:Qty: 1 on 03/19/2022 by [facility]oto Hill [facility] ValveN/A: FjyaxOFHPMDHD83/27/2028ONXACE-23 / [id number] / [id number]/08/2011 Implanted:08/06/2011 (Quantity not on file)Prosthetic Lhglt67OZ-889 / [id number] / System Cor Stnt 3.5mm X 38mm 145cm Xience Skypoint Mtlnk [place] - [id number] Implanted:Qty: 1 on 05/13/2023 by [facility] [id number] / / [id number] Cor Stnt 3.5mm X 18mm 145cm Xience Skypoint Mtlnk [place] - [id number] Implanted:Qty: 1 on 05/13/2023 by Mary Beth De Leon MD at [facility] [id number] / / [id number] Cor Stnt 3.5mm X 23mm 145cm Xience Skypoint Mtlnk [place] - [id number] Implanted:Qty: 1 on 05/13/2023 by Mary Beth De Leon MD at [facility] [id number] / / [id number] Procedures Procedure NamePriorityDate/TimeAssociated DiagnosisCommentsCBC (NO DIFF)Routine 03/14/2025 1:56 PM EST 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 exposed (CMS-HCC) Preoperative testing BASIC METABOLIC OTPSELirnbpt38/11/2025 1:56 PM EST 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 exposed (CMS-HCC) Preoperative testing VITAMIN D26Clufzcw31/03/2025 12:35 PM ESTPOCT PROTIME / WSISdqudge85/28/2025 9:53 AM EDT 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 S/P AVR (aortic valve replacement) Encounter for immunization POCT HEMOGLOBIN A1C XTMDjgbsgf01/09/2025 3:55 PM EDT Type II diabetes mellitus with neurological manifestations (CMS-HCC) POCT PROTIME / HDWOgxmbtw56/24/2025 1:51 PM EDT 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 S/P AVR (aortic valve replacement) POCT PROTIME / WSWGnvmewt41/11/2025 1:01 PM EDT senior care current use of 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 therapy S/P AVR (aortic valve replacement) POCT PROTIME / CSKNbtzhtd03/28/2025 1:24 PM EDT senior care current use of 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 therapy S/P AVR (aortic valve replacement) POCT PROTIME / MKSIemljfs07/21/2025 3:27 PM EDT 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 S/P AVR (aortic valve replacement) POCT PROTIME / OTGYzgdynu69/19/2025 2:00 PM EDT senior care current use of 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 therapy S/P AVR (aortic valve replacement) BONE HULHHIJNjaiegv45/15/2025 9:06 AM EDT Acute osteomyelitis of right ankle or foot (CMS-HCC) Ulcer of toe of right foot, with necrosis of bone (CMS-HCC) ANAEROBIC FRQROFTImennof78/15/2025 9:06 AM EDT Acute osteomyelitis of right [...] Hemiguard, Peel and Place vac, supine position PROVATION TMVIQIYXPVEQemyhjl80/04/2019 6:38 AM EST from Last 3 Months or Most Recently Relevant to Health Maintenance Results * (ABNORMAL) CBC without diff (03/14/2025 1:56 PM EST)ComponentValueRef Range Test MethodAnalysis TimePerformed AtPathologist SignatureWBC9.14 - 11 X10^9/L 03/14/2025 6:38 PM [facility]ATORYRBC Count5.094.1 - 5.7 X10^12/L105/14/2024 6:38 PM [facility] Xgnicvaiwo90.013 - 17 g/dL03/14/2025 6:38 PM [facility] [facility] HZCTOXVPTWAyzegibqyk26.939 - 50 %03/14/2025 6:38 PM [facility] JFOYOVIZBYOTT40(L)80 - 100 fL03/14/2025 6:38 PM [facility] NBDVNYELURAYF37.6(L)27 - 34 pg03/14/2025 6:38 PM [facility] WENBQIXTTNITCI03.732 - 36 g/dL03/14/2025 6:38 PM [facility] RAXRHRVMTJJJH25.3(H)11.5 - 15 %03/14/2025 6:38 PM [facility] LABORATORYPlatelet Ausag709109 - 450 X10^9/L105/14/2024 6:38 PM EST [facility] LABORATORYMPV8.87 - 12 fL03/14/2025 6:38 PM [facility] LABORATORYSpecimen (Source)Anatomical Location / Laterality Collection Method / VolumeCollection TimeReceived TimeBloodVenous blood / UnknownVenipuncture / Nrkpbjh9303/14/2025 1:56 PM EST03/14/2025 1:56 PM EST Narrative Authorizing ProviderResult TypeResult StatusMary Beth De Leon MDLAB BLOOD ORDERABLESFinal ResultPerforming OrganizationAddressCity/State/ZIP CodePhone Number [facility] [address] [place] [phone], * (ABNORMAL) Basic Metabolic Panel (03/14/2025 1:56 PM EST)ComponentValueRef RangeTest MethodAnalysis TimePerformed AtPathologist SvumnfbpgMREPDY841(L)134 - 146 mmol/L105/14/2024 6:31 PM [facility] LABORATORYPOTASSIUM 4.83.5 - 5.0 mmol/L105/14/2024 6:31 PM [facility] XKAIGJAG70090 - 109 mmol/L105/14/2024 6:31 PM [facility] LABORATORYCARBON IAJVJIT2107 - 32 mmol/L105/14/2024 6:31 PM [facility] LABORATORYANION GAP95 - 15 mmol/L105/14/2024 6:31 PM [facility] LABORATORYBLOOD UREA SSSJVLWB24(H)5 - 27 mg/dL03/14/2025 6:31 PM [facility] LABORATORYCREATININE1.100.60 - 1.30 mg/dL 03/14/2025 6:31 PM [facility] LABORATORYComment:METHOD TRACEABLE TO IDMS PIOECAPFTRABDBJ562(H)65 - 99 mg/dL03/14/2025 6:31 PM EST [facility] LABORATORYCALCIUM9.08.5 - 10.5 mg/dL03/14/2025 6:31 PM [facility] LABORATORYEGFR Non-Race Ilxabnktz83>=60 ml/min/1.73sq.m105/14/2024 6:31 PM [facility] Comment: Reported eGFR is based on the CKD-EPI 2020 equation that does not use a race coefficient. Specimen (Source)Anatomical Location / LateralityCollection Method / Volume Collection TimeReceived TimeBloodVenous blood / UnknownVenipuncture / Unknown 03/14/2025 1:56 PM EST03/14/2025 1:56 PM EST Narrative Authorizing ProviderResult TypeResult StatusMary Beth De Leon [facility] BLOOD ORDERABLESFinal ResultPerforming OrganizationAddressCity/State/ZIP CodePhone Number [facility] [address] [place] [address], * Vitamin B12 (03/06/2025 12:35 PM EST)Specimen (Source)Anatomical Location / LateralityCollection Method / VolumeCollection TimeReceived TimeBloodVenous blood / Unknown Narrative Authorizing ProviderResult TypeResult StatusNot In System Ref [facility] BLOOD ORDERABLESFinal ResultPerforming OrganizationAddressCity/State/ZIP CodePhone Number MANUALLY TRANSCRIBED RESULTS * (ABNORMAL) POCT Protime / INR (02/28/2025 9:53 AM EDT) Only the most recent of6 resultswithin the time period is included. ComponentValueRef RangeTest MethodAnalysis TimePerformed AtPathologist Signature INR2.9(A)0.8 - 1.2MANUALLY TRANSCRIBED RESULTSSpecimen (Source)Anatomical Location / LateralityCollection Method / VolumeCollection TimeReceived Time 02/28/2025 9:53 AM EDT Narrative Authorizing ProviderResult TypeResult Status[facility] Medication ManagementPOINT OF CARE TEST ORDERABLESFinal ResultPerforming Organization AddressCity/State/ZIP CodePhone Number MANUALLY TRANSCRIBED RESULTS * POCT Hemoglobin A1C - MTM (02/09/2025 3:55 PM EDT)ComponentValueRef RangeTest MethodAnalysis TimePerformed AtPathologist SignatureExternal MTM Hemoglobin A1C5.84 - 6MANUALLY TRANSCRIBED RESULTSSpecimen (Source)Anatomical Location / LateralityCollection Method / VolumeCollection TimeReceived TimeBlood 02/09/2025 3:55 PM EDT Narrative Authorizing ProviderResult TypeResult StatusProhelen [facility] Medication ManagementPOINT OF CARE TEST ORDERABLESFinal ResultPerforming Organization AddressCity/State/ZIP CodePhone Number MANUALLY TRANSCRIBED RESULTS * (ABNORMAL) Bone culture (12/16/2024 9:06 AM EDT)ComponentValueRef RangeTest MethodAnalysis TimePerformed AtPathologist SignatureCULTURE RESULTS Enterococcus faecalis(A)12/20/2024 7:49 AM [facility] LABORATORYCULTURE RESULTSMethicillin-Resistant Staphylococcus aureus(A) 12/20/2024 7:49 AM [facility] LABORATORYCULTURE RESULTS Diphtheroids(A)12/20/2024 7:49 AM [facility] Comment:Unable To IsolateSpecimen (Source)Anatomical Location / Laterality Collection Method / VolumeCollection TimeReceived TimeBoneEntire toe of right foot / Iyxfoeq3012/16/2024 9:06 AM EDT12/16/2024 9:59 AM EDTComment:Pre-op diagnosis: Acute osteomyelitis of right ankle or foot ([facility]) [M86.171] Ulcer of toe of right foot, with necrosis of bone ([facility]) [L97.514] Narrative OrganismAntibioticMethodSusceptibilityEnterococcus faecalisAmpicillin <=2.0: Susceptible Enterococcus faecalisVancomycin 1.0: Susceptible Enterococcus faecalisSusceptibility CommentMethicillin-Resistant Staphylococcus aureusClindamycin >=4.0: Resistant Methicillin-Resistant Staphylococcus aureusDaptomycin =0.25: Susceptible Methicillin-Resistant Staphylococcus aureusDoxycycline 1.0: Susceptible Methicillin-Resistant Staphylococcus aureusOxacillin >=4.0: Resistant Methicillin-Resistant Staphylococcus aureusTrimethoprim + Sulfamethoxazole <=0.5: Susceptible Methicillin-Resistant Staphylococcus aureusVancomycin <=0.5: Susceptible Methicillin-Resistant Staphylococcus aureusCefazolin Resistant (deduced) Methicillin-Resistant Staphylococcus aureusSusceptibility CommentAuthorizing ProviderResult TypeResult StatusAfsaneh HENLEYMMICROBIOLOGY - GENERAL ORDERABLESFinal ResultPerforming OrganizationAddressCity/State/ZIP CodePhone Number [facility] [address] [place] [address], * Anaerobic culture (12/16/2024 9:06 AM EDT)ComponentValueRef RangeTest Method Analysis TimePerformed AtPathologist SignatureCULTURE RESULTSNO ANAEROBIC ORGANISMS XKXABHVJ82/20/2025 9:29 AM [facility] Specimen (Source)Anatomical Location / LateralityCollection Method / Volume Collection TimeReceived TimeBoneEntire toe of right foot / Gvbpcnz9712/16/2024 9:06 AM EDT12/16/2024 9:59 AM EDTComment:Pre-op diagnosis: Acute osteomyelitis of right ankle or foot ([facility]) [M86.171] Ulcer of toe of right foot, with necrosis of bone ([facility]) [L97.514] Narrative Authorizing ProviderResult TypeResult StatusAfsaneh HENLEYICROBIOLOGY - GENERAL ORDERABLESFinal ResultPerforming OrganizationAddressCity/State/ZIP Code Phone Number [facility] [address] [place] [address], * ES colonoscopy imaging (03/07/2019 6:38 AM [...] or Most Recently Relevant to Health Maintenance Additional Health Concerns Active ProblemsNoted DateDiagnosed DateAutogenerated Gxkvasb8503/10/2025 Insurance * Guarantor: Yohannes Andre DAccount TypeRelation to PatientDate of BirthPhone Billing AddressPersonal/WvkgzsLgja76/15/1961 [address] [address] Advance Directives * Full Code (Latest Code Status on File) Date ActivatedDate InactivatedComments07/21/2023 10:26 PM07/27/2023 9:06 PM * Full Code Date ActivatedDate InactivatedComments07/16/2023 6:14 PM07/21/2023 9:07 PM * Full Code Date ActivatedDate FpqqjixpeezPkinygwh37/16/2022 2:28 PM03/24/2022 2:55 PM * Full Code Date ActivatedDate LpprlpvvcccDupghlgy95/30/2022 8:47 PM03/08/2022 6:13 PM * Full Code Date ActivatedDate InactivatedComments12/27/2021 2:19 PM12/27/2021 5:36 PM Care Teams Team MemberRelationshipSpecialtyStart DateEnd Date Nathalie Handley APRN-NP [address] [place] [address] PCP - GeneralNurse Practitioner09/08/24
--- OUTSIDE RECORDS SUMMARY | 2025-03-16 14:26 | XMS_ITS | Encounter Summary ---
Author Organization [facility] Address [address] [place] [address] Care Team Providers Care Warehouse Shipper Name Role Phone Jose Garner DO Primary Care Provider [phone] Reason for Visit * ReasonOnset DateCommentsmedication htnkbg8003/07/2025Nuzyra was denied by pts insurance, I spoke with the pt and per Dr. Hammond we will send in Bactrim to pts pharm. Encounter Details DateTypeDepartmentCare Team (Latest Contact Info)Tebabklbuuw96/04/2025[facility]phone [facility] [address] [address] Kassandra Sotelo MA medication denial (Nuzyra was denied by pts insurance, I spoke with the pt and per Dr. Hammond we will send in Bactrim to pts pharm. ) Social History Tobacco UseTypesPacks/DayYears UsedDateSmoking Tobacco: Every DayCigarettes0.515 Smokeless Tobacco: Never Comments:Smoked 1-2 pks a da y for [address]yrs [address] back 1/2 pk orless a day Alcohol UseStandard Drinks/WeekCommentsNot Currently6 (1 standard drink = 0.6 oz pure alcohol)Sex and Gender InformationValueDate RecordedSex Assigned at Not on fileLegal LlxJqic4812/30/2022 2:14 PM EDTGender IdentityNot on fileSexual OrientationNot on filedocumented as of this encounter Miscellaneous Notes * Telephone Encounter - Kassandra Sotelo MA - 03/07/2025 4:40 PM EST Kristal MONTES was denied, I have sent in eRX of Bactri, also called Mahsa to let her know this was being sent. documented in this encounter Plan of Treatment DateTypeDepartmentCare Team (Latest Contact Info)Joigtyotvzq23/18/2025 1:15 PM ESTOffice Visit [facility] [place] [facility] [address] [place] [address] Afsaneh Hammond, DPM [address] [place] [address] 03/28/2025 1:15 PM ESTOffice Visit [facility] [address] [place] [address] Afsaneh Hammond DPM [address] [place] [address] 04/06/2025 2:30 PM ESTOffice Visit [facility] [place] [address] [place] [address] Afsaneh Hammond DPM [address] [place] [address] 04/13/2025 3:30 PM ESTOffice Visit [facility] [address] [place] [address] Afsaneh Hammond DPM [address] [place] [address] 04/20/2025 3:00 PM ESTOffice Visit [facility] [place] [address] [place] [address] Afsaneh Hammond DPM [address] [place] [address] 04/25/2025 3:00 PM ESTOffice Visit [facility] [address] [place] [address] Afsaneh Hammond, DPM [address] [place] [address] 05/02/2025 3:00 PM ESTOffice Visit [facility] [address] [place] [address] Afsaneh Hammond, DPM [address] [place] [address] 05/11/2025 3:15 PM ESTOffice Visit [facility] [address] [place] [address] Afsaneh Hammond, DPM [address] [place] [address] 05/30/2025 4:00 PM ESTProcedure Visit [facility] [address] [place] [address] Afsaneh Hammond, DPM [address] [place] [address] documented as of this encounter Visit Diagnoses Diagnosis Infection of skin and subcutaneous tissue Unspecified local infection of skin and subcutaneous tissue Ulcer of left foot with fat layer exposed (HCC) documented in this encounter Care Teams Team MemberRelationshipSpecialtyStart DateEnd Date Jose Garner DO [address] [place] [address] PCP - GeneralInternal Medicine09/22/24documented as of this encounter
--- OUTSIDE RECORDS SUMMARY | 2025-03-16 14:26 | XMS_ITS | Encounter Summary ---
Author Organization [facility] tem Address [id number] [address] [place] [address] Care Team Providers Care Director Global Development Name Role Phone Nathalie Handley APRN-FACULTY SUPPORT COORDINATOR Primary Care Provid er Encounter Details DateTypeDepartmentCare Team (Latest Contact Info)Ankvkvjuuaa90/03/2025Orders Only [facility] - Pharmacy Medication Management [address] [place] [address] Ref Prov, [place] [address] Social History Tobacco UseTypesPacks/DayYears UsedDateSmoking Tobacco: Every RtxOynwziftvs421.9 Started: 1974Smokeless Tobacco: NeverAlcohol UseStandard Drinks/WeekCommentsYes2 (1 standard drink = 0.6 oz pure alcohol)history of alcohol abuseAHC Utilities AnswerDate RecordedIn the past 12 months has the [employer], gas, oil, or water [facility] threatened to shut off services in your home?No07/21/2023Social Connection and Isolation PanelAnswerDate RecordedIn a typical week, how many times do you talk on the phone with family, friends, or neighbors?Once a week 05/09/2022How often do you get together with friends or relatives?Once a week 05/09/2022How often do you attend quaker or scientologist services?Never05/09/2022o you belong to any clubs or organizations such as quaker groups, unions, fraternal or athletic groups, or school groups?No05/09/2022How often do you attend meetings of the clubs or organizations you belong to?Never05/09/2022re you , , , , never , or living with a partner?Otqjfbf7405/09/2022Overall Financial Resource Strain (CARDIA)AnswerDate RecordedHow hard is it for you to pay for the very basics like food, housing, medical care, and heating?Not hard at all05/09/2022HQ-2AnswerDate RecordedTotal Kucsg695[facility] [place] of Occupational Health - Occupational Stress QuestionnaireAnswerDate [...] part of a household?07/21/2023hildcareAnswerDate RecordedDo problems getting child therapist make it difficult for you to work [...] and direction in my life.Neither Agree nor Lxknivht29/06/2023EducationAnswerDate RecordedWhat is the highest level of school you have completed or the highest degree you have received?11th grade04/30/2020Sex and Gender InformationValueDate RecordedSex Assigned at AnpxaWrkm74/13/2020 6:23 PM EDTLegal UoeKtta9212/07/2014 11:22 AM EDT Gender ZicqkujcEkbn35/13/2020 6:23 PM EDTSexual KmrraxhkjylHlqqftow61/13/2020 6:23 PM EDTdocumented as of this encounter Plan of Treatment DateTypeDepartmentCare Team (Latest Contact Info)Owwdgtpvvot95/14/2025 8:30 AM ESTHospital Encounter [facility] Surgery [address] [place] [address] Afsaneh Hammond, DPM [address] [place] [address] 03/17/2025 8:30 AM ESTAnesthesia Event [facility] Surgery [address] [place] [address] Naif Mireles, DO [address] [facility] [place] [address] 03/17/2025 8:30 AM EST - 03/17/2025 10:00 AM ESTSurgery [facility] Surgery [address] [place] [address] Afsaneh Hammond, DPM [address] [place] [address] AMPUTATION METATARSAL AND TOE partial 5th ray, wound vac [34189 (CPT??)] 03/20/2025 10:30 AM ESTHospital Encounter [facility] Cardiac Cath [address] [place] [address] Mary Beth De Leon MD [address] [place] [address] 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 exposed ([facility])03/20/2025 10:30 AM EST - 03/20/2025 12:30 PM ESTSurgery [facility] [address] [place] [address] Mary Beth De Leon MD [address] [place] [address] Vascular Invasive- Left Lower Extremity Angiogram with possible intervention 03/23/2025 1:15 PM ESTFollow Up Anticoagulation [facility] - Pharmacy Medication Management [address] [place] [address] Yusuf Fletcher MD [employer] [place] [address] 03/28/2025 2:40 PM ESTOffice Visit [facility] [address] [place] [address] Mary Beth De Leon MD [address] [place] [address] 03/29/2025 2:00 PM ESTFollow Up Anticoagulation [facility] - Pharmacy Medication Management [address] [place] [address] Yusuf Fletcehr MD [address] [employer], [address] [place] [address] 05/12/2025 1:00 PM ESTClinical Support [facility] - Pharmacy Medication Management [address] [place] [address] Yusuf Fletcher MD [address] [place] [address], [address] [place] [address] NamePriorityAssociated DiagnosesDate/TimeAMPUTATION 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 documented as of this encounter Procedures Procedure NamePriorityDate/TimeAssociated DiagnosisCommentsVITAMIN L50Ctqnepi 03/06/2025 12:35 PM ESTdocumented in this encounter Results * Vitamin B12 (03/06/2025 12:35 PM EST)Specimen (Source)Anatomical Location / LateralityCollection Method / VolumeCollection TimeReceived TimeBloodVenous blood / Unknown Narrative Authorizing ProviderResult TypeResult StatusNot In System Ref ProvLAB BLOOD ORDERABLESFinal ResultPerforming OrganizationAddressCity/State/ZIP CodePhone Number MANUALLY TRANSCRIBED RESULTS documented in this encounter Visit Diagnoses Not on filedocumented in this encounter Additional Health Concerns AssessmentNoted TimePHQ-9 Depression Total Score: 2:03 PM EDTA Body Mass Index follow-up plan has been documented for the abjnyuj4411/13/2017 2:35 PM EDTdocumented as of this encounter Care Teams Team MemberRelationshipSpecialtyStart DateEnd Date Nathalie Handley APRN-CAITY [address] [facility] [place] [address] PCP - GeneralNurse Practitioner09/08/24documented as of this encounter
--- OUTSIDE RECORDS SUMMARY | 2025-03-16 14:26 | XMS_ITS | Encounter Summary ---
Author Organization [facility] Address [address] [place] [address] Care Team Providers Care Gas Specialist Name Role Phone Jose Garner DO Primary Care Provider [phone] Encounter Details DateTypeDepartmentCare Team (Latest Contact Info)Ryfyufvagim36/06/2025Travel Social History Tobacco UseTypesPacks/DayYears UsedDateSmoking Tobacco: Every DayCigarettes0.515 Smokeless Tobacco: Never Comments:Smoked 1-2 pks a da y for [address] have [address] back 1/2 pk orless a day Alcohol UseStandard Drinks/WeekCommentsNot Currently6 (1 standard drink = 0.6 oz pure alcohol)Sex and Gender InformationValueDate RecordedSex Assigned at Not on fileLegal FjlJpkv1412/30/2022 2:14 PM EDTGender IdentityNot on fileSexual OrientationNot on filedocumented as of this encounter Plan of Treatment DateTypeDepartmentCare Team (Latest Contact Info)Ihqnrnspshd76/18/2025 1:15 PM ESTOffice Visit [facility] [address] [place] [address] Afsaneh Hammond, ASA [address] [place], [place] [address] 03/28/2025 1:15 PM ESTOffice Visit [facility] [address] [place] [address] Afsaneh Hammond, DPFransisco [address] [place] [address] 04/06/2025 2:30 PM ESTOffice Visit [facility] [address] [place] [address] Afsaneh Hammond, DPM [address] [place] [address] 04/13/2025 3:30 PM ESTOffice Visit [facility] [address] [place] [address] Afsaneh Hammond, DPM [address] [place] [address] 04/20/2025 3:00 PM ESTOffice Visit [facility] [address] [place] [address] Afsaneh Hammond, DPM [address] [place] [address] 04/25/2025 3:00 PM ESTOffice Visit [facility] [address] [place] [address] Afsaneh Hammond DPM [address] [place] [address] 05/02/2025 3:00 PM ESTOffice Visit [facility] [address] [place] [address] Afsaneh Hammond, DPM [address] [place] [address] 05/11/2025 3:15 PM ESTOffice Visit [facility] [address] [place] [address] Afsaneh Hammond, ASA [address] [place], [place] [address] 05/30/2025 4:00 PM ESTProcedure Visit [facility] [address] [place] [address] Afsaneh Hammond DPM [address] [place], [place] [address] documented as of this encounter Visit Diagnoses Not on filedocumented in this encounter Care Teams Team MemberRelationshipSpecialtyStart DateEnd Date Jose Garner DO [address] [place] [address] PCP - GeneralInternal Medicine09/22/24documented as of this encounter
--- NOTE | 2025-03-16 14:27 | MR_ITS ---
[address] [address] Patient Name: RYLEE GOVEA MRN: [id number] date: 1960 Sex: M Assigned Patient Location: MRI Current Patient Location: MRI Accession/Order Number: [id number] Exam Date: 03/16/2025 14:45 Report Date: 03/16/2025 17:36 At the request of: ORALIA DOVE DO Procedure: MR elbow RT wo con MR elbow RT wo con 03/16/2025 4:18 PM SIGNS AND SYMPTOMS: right elbow pain, locking sensation PROTOCOL: Multiplanar multisequence MR images of the right elbow without IV contrast COMPARISON: None. FINDINGS: Joint fluid: There is a small joint effusion along the radial side of the joint.. Medial: Ulnar collateral ligament: Intact. Common flexor tendon: Intact. Medial epicondyle: Preserved. Lateral: Radial collateral ligament: Intact. Lateral ulnar collateral ligament: Intact. Common extensor tendon: Normal. Lateral epicondyle: Normal. Posterior: Triceps: Intact. Olecranon: Normal. Anterior: Biceps: Intact. Brachialis: Intact. Bicipitoradial bursa: Normal. Articular: Radio-capitellar joint: The radiocapitellar joint spaces are preserved. There is redundancy of the posterior and lateral synovial fold with mild accompanying edema on fluid sensitive sequences with a synovial plica insinuating into the joint space both posteriorly and laterally suspicious for synovial fold syndrome. Ulno-humeral joint: Normal. Proximal radio-ulnar joint: Normal. Bones (other than subarticular marrow): Normal. Muscles: Normal. Vessels: Normal. Nerves: Cubital tunnel normal, retinaculum intact. Anconeus epitrochlearis muscle present. Intra-articular bodies: None. MR/MR elbow RT wo con IMPRESSION: The radiocapitellar joint spaces are preserved. There is redundancy of the posterior and lateral synovial fold with mild accompanying edema on fluid sensitive sequences with a synovial plica insinuating into the joint space both posteriorly and laterally suspicious for synovial fold syndrome. There is a small radiocapitellar joint effusion. Impression dictated by: Delgado Vallecillo M.D. 03/16/2025 5:36 PM Dictation Location: [place] [address] Electronically authenticated by: [id number] Y Date: 03/16/2025 17:36
== END 2025-03-16 14:23 | disposition home or self-care (01) ==
LOC: MRI 14:22
PROVIDERS: Family Provider Family Medicine; PCP Nurse Practitioner Family; Visit Provider Orthopaedic Surgery Orthopaedic Trauma
DX: M25.521 Pain in right elbow (principal); M25.421 Effusion, right elbow
CPT/HCPCS: 73221